=== PATIENT | female | born 1950 ===

== ENCOUNTER → 2019-05-06 10:53 | Outpatient (BNVA) | payer MEDICARE, MEDICAID, SELFPAY | PROVIDERS: Family Provider Family Medicine; PCP Family Medicine; Visit Provider Anesthesiology | DX: M54.9 Dorsalgia, unspecified (principal); M75.50 Bursitis of unspecified shoulder; M79.651 Pain in right thigh; M79.652 Pain in left thigh; M17.0 Bilateral primary osteoarthritis of knee; G62.9 Polyneuropathy, unspecified; Z79.891 Long term (current) use of opiate analgesic | CPT/HCPCS: 99214 ==

== ENCOUNTER → 2019-07-02 08:41 | Outpatient (BNVA) | payer MEDICARE, MEDICAID, SELFPAY | PROVIDERS: Family Provider Family Medicine; PCP Family Medicine; Visit Provider Nurse Practitioner | DX: Z76.89 Persons encountering health services in other specified circumstances (principal) | CPT/HCPCS: 99212 ==

== ENCOUNTER → 2019-09-24 14:34 | Outpatient (BNVA) | payer MEDICARE, MEDICAID, SELFPAY | PROVIDERS: Family Provider Family Medicine; PCP Family Medicine; Visit Provider Anesthesiology | DX: M54.41 Lumbago with sciatica, right side (principal); M54.42 Lumbago with sciatica, left side; M17.0 Bilateral primary osteoarthritis of knee; G62.9 Polyneuropathy, unspecified; Z79.891 Long term (current) use of opiate analgesic | CPT/HCPCS: 99214 ==

== ENCOUNTER 2019-10-07 08:05 | Outpatient (CLI) | payer MEDICARE, MEDICAID, SELFPAY | END 2019-10-07 08:06 | disposition home or self-care (01) | LOC: WOUND 08:07 | PROVIDERS: Family Provider Family Medicine; PCP Family Medicine; Visit Provider Thoracic Surgery (Cardiothoracic Vascular Surgery) | DX: I96 Gangrene, not elsewhere classified (principal); L97.512 Non-pressure chronic ulcer of other part of right foot with fat layer exposed; L97.812 Non-pressure chronic ulcer of other part of right lower leg with fat layer exposed; L97.822 Non-pressure chronic ulcer of other part of left lower leg with fat layer exposed | CPT/HCPCS: 11042; 11045; 99214 ==

== ENCOUNTER 2019-10-16 13:51 | Outpatient (CLI) | payer MEDICARE, MEDICAID, SELFPAY | END 2019-10-16 13:52 | disposition home or self-care (01) | LOC: WOUND 13:52 | PROVIDERS: Family Provider Family Medicine; PCP Family Medicine; Visit Provider Surgery | DX: I87.2 Venous insufficiency (chronic) (peripheral) (principal); L97.812 Non-pressure chronic ulcer of other part of right lower leg with fat layer exposed; L97.822 Non-pressure chronic ulcer of other part of left lower leg with fat layer exposed; L97.512 Non-pressure chronic ulcer of other part of right foot with fat layer exposed | CPT/HCPCS: 11042; 11045 ==

== ENCOUNTER 2019-10-22 10:24 | Outpatient (CLI) | payer MEDICARE, MEDICAID, SELFPAY | END 2019-10-22 10:25 | disposition home or self-care (01) | PROVIDERS: Family Provider Family Medicine; PCP Family Medicine; Visit Provider Emergency Medicine | DX: I87.2 Venous insufficiency (chronic) (peripheral) (principal); L97.812 Non-pressure chronic ulcer of other part of right lower leg with fat layer exposed; L97.512 Non-pressure chronic ulcer of other part of right foot with fat layer exposed; L97.822 Non-pressure chronic ulcer of other part of left lower leg with fat layer exposed | CPT/HCPCS: 11042; 11045 ==

== ENCOUNTER 2019-10-29 10:44 | Outpatient (CLI) | payer MEDICARE, MEDICAID, SELFPAY | END 2019-10-29 10:45 | disposition home or self-care (01) | LOC: WOUND 10:45 | PROVIDERS: Family Provider Family Medicine; PCP Family Medicine; Visit Provider Emergency Medicine | DX: I87.2 Venous insufficiency (chronic) (peripheral) (principal); L97.812 Non-pressure chronic ulcer of other part of right lower leg with fat layer exposed; L97.822 Non-pressure chronic ulcer of other part of left lower leg with fat layer exposed; L97.512 Non-pressure chronic ulcer of other part of right foot with fat layer exposed | CPT/HCPCS: 11042; 11045 ==

== ENCOUNTER 2019-11-04 15:33 | Outpatient (CLI) | payer MEDICARE, MEDICAID, SELFPAY | END 2019-11-04 15:34 | disposition home or self-care (01) | LOC: WOUND 15:35 | PROVIDERS: Family Provider Family Medicine; PCP Family Medicine; Visit Provider Thoracic Surgery (Cardiothoracic Vascular Surgery) | DX: I87.2 Venous insufficiency (chronic) (peripheral) (principal); L97.812 Non-pressure chronic ulcer of other part of right lower leg with fat layer exposed; L97.822 Non-pressure chronic ulcer of other part of left lower leg with fat layer exposed; L97.512 Non-pressure chronic ulcer of other part of right foot with fat layer exposed | CPT/HCPCS: 11042; 11045 ==

== ENCOUNTER 2019-11-06 16:04 | Outpatient (CLI) | payer MEDICARE, MEDICAID, SELFPAY ==
[2019-11-06 16:56] LABS: Basophils # 0.1 10^3/uL (0.0-0.1); Basophils % 0.6 %; Eosinophils # 0.3 10^3/uL (0.0-0.8); Eosinophils % 3.7 %; Hematocrit 37.9 % (37.0-47.0); Lymphocytes # 1.5 10^3/uL (0.8-4.8); Lymphocytes % 17.7 %; Mean Corpuscular Hemoglobin 24.2 pg (28.0-34.0); Mean Corpuscular Volume 83.3 fL (81-99); Mean Platelet Volume 9.5 fL (7.4-10.4); Monocytes # 0.6 10^3/uL (0.2-0.9); Monocytes % 6.6 %; Neutrophils % 70.7 %; Nucleated Red Blood Cells % 0 %; Platelet Count 503 10^3/cmm (130-400); Red Blood Count 4.55 10^6/uL (4.1-5.3); White Blood Count 8.5 10^3/uL (4.0-10.0)
[2019-11-06 18:32] LABS: Erythrocyte Sedimentation Rate 62 mm/hr (0-15)
[2019-11-06 18:44] LABS: Alanine Aminotransferase 60 U/L (0-33); Alkaline Phosphatase 318 IU/L (35-105); Anion Gap 22.7 (5-19); Aspartate Amino Transferase 74 U/L (0-32); Blood Urea Nitrogen 38 mg/dL (8-23); C Reactive Protein 55.1 mg/L (0.0-4.9); Calcium 9.3 mg/dL (8.5-10.5); Carbon Dioxide 18 mmol/L (22-29); Chloride 94 mmol/L (98-107); Globulin 4.2 g/dL (1.3-4.6); Glomerular Filtration Rate 40.6 mL/min (90-130); Glucose 94 mg/dL (65-115); Osmolality Calculated 267 mOsm/kg (285-295); Potassium 4.7 mmol/L (3.5-5.1); Sodium 130 mmol/L (136-145); Total Bilirubin 0.2 mg/dL (0.15-1.2); Total Protein 8.2 g/dL (6.6-8.7)
== END 2019-11-06 16:05 | disposition home or self-care (01) ==
LOC: LAB 16:08
PROVIDERS: Family Provider Family Medicine; PCP Family Medicine; Visit Provider Thoracic Surgery (Cardiothoracic Vascular Surgery)
DX: I87.2 Venous insufficiency (chronic) (peripheral) (principal)
CPT/HCPCS: 80053; 85025; 85651; 86140

== ENCOUNTER 2019-11-11 09:48 | Outpatient (CLI) | payer MEDICARE, MEDICAID, SELFPAY | END 2019-11-11 09:49 | disposition home or self-care (01) | LOC: WOUND 09:50 | PROVIDERS: Family Provider Family Medicine; PCP Family Medicine; Visit Provider Thoracic Surgery (Cardiothoracic Vascular Surgery) | DX: L97.512 Non-pressure chronic ulcer of other part of right foot with fat layer exposed (principal); L97.812 Non-pressure chronic ulcer of other part of right lower leg with fat layer exposed; L97.822 Non-pressure chronic ulcer of other part of left lower leg with fat layer exposed | CPT/HCPCS: 11042; 11045 ==

== ENCOUNTER 2019-11-17 16:52 | Outpatient (CLI) | payer MEDICARE, MEDICAID, SELFPAY ==
[2019-11-17 18:57] LABS: Add Urine Microscopic? YES; Bilirubin Urine Neg (NEGATIVE); Blood Urine Neg (Negative); Glucose Urine UA Norm (Normal); Ketones Urine Negative (Negative); Leukocyte Esterase Urine 2+ (Negative); Nitrate Urine Negative (Negative); Protein Urine Neg (Negative); Urine Appearance Cloudy (CLEAR); Urine Color Yellow (Yellow); Urobilinogen Urine 1 mg/dL (Negative); pH Urine 5 (5-7)
[2019-11-17 18:58] LABS: Add Urine Culture? Yes; Bacteria Urine 4+; Other Crystals Urine TALC /hpf; Squamous Epithelial Cell Urine 0-4 (0-5); WBC Urine 55-80 /hpf (0-5)
== END 2019-11-17 16:53 | disposition home or self-care (01) ==
LOC: LAB 16:55
PROVIDERS: PCP Family Medicine; Visit Provider Family Medicine
DX: N39.0 Urinary tract infection, site not specified (principal)
CPT/HCPCS: 81001; 87086; 87186

== ENCOUNTER 2019-11-18 10:11 | Outpatient (CLI) | payer MEDICARE, MEDICAID, SELFPAY | END 2019-11-18 10:12 | disposition home or self-care (01) | LOC: WOUND 10:11 | PROVIDERS: PCP Family Medicine; Visit Provider Emergency Medicine | DX: I87.2 Venous insufficiency (chronic) (peripheral) (principal); L97.812 Non-pressure chronic ulcer of other part of right lower leg with fat layer exposed; L97.512 Non-pressure chronic ulcer of other part of right foot with fat layer exposed; L97.822 Non-pressure chronic ulcer of other part of left lower leg with fat layer exposed | CPT/HCPCS: 11042; 11045 ==

== ENCOUNTER 2019-11-25 10:01 | Outpatient (RCR) | payer MEDICARE, MEDICAID, SELFPAY | END 2019-12-08 23:59 | disposition home or self-care (01) | LOC: WOUND 10:01 | PROVIDERS: PCP Family Medicine; Visit Provider Nurse Practitioner Family | DX: I87.2 Venous insufficiency (chronic) (peripheral) (principal); L97.822 Non-pressure chronic ulcer of other part of left lower leg with fat layer exposed; L97.812 Non-pressure chronic ulcer of other part of right lower leg with fat layer exposed; L97.512 Non-pressure chronic ulcer of other part of right foot with fat layer exposed | CPT/HCPCS: 99214 ==

== ENCOUNTER → 2019-12-03 09:18 | Outpatient (BNVA) | payer MEDICARE, MEDICAID, SELFPAY | PROVIDERS: Family Provider Family Medicine; PCP Family Medicine; Visit Provider Anesthesiology | DX: M79.604 Pain in right leg (principal); M79.605 Pain in left leg; M17.0 Bilateral primary osteoarthritis of knee; G62.9 Polyneuropathy, unspecified; M54.5 Low back pain; Z79.891 Long term (current) use of opiate analgesic | CPT/HCPCS: 99214 ==

== ENCOUNTER 2019-12-09 09:31 | Outpatient (CLI) | payer MEDICARE, MEDICAID, SELFPAY | END 2019-12-09 09:32 | disposition home or self-care (01) | LOC: WOUND 09:32 | PROVIDERS: Family Provider Family Medicine; PCP Family Medicine; Visit Provider Pharmacist | DX: L97.512 Non-pressure chronic ulcer of other part of right foot with fat layer exposed (principal); L97.812 Non-pressure chronic ulcer of other part of right lower leg with fat layer exposed | CPT/HCPCS: 11042; 11045 ==

== ENCOUNTER 2019-12-17 10:15 | Outpatient (CLI) | payer MEDICARE, MEDICAID, SELFPAY ==
--- NOTE | 2019-12-17 10:29 | XRR_ITS ---
PROCEDURE INFORMATION: Exam: XR Right Shoulder Exam date and time: 12/17/2019 10:59 AM Age: 69 years old Clinical indication: Pain; Shoulder; Right; Prior surgery; Surgery date: 6+ months; Patient HX: Fall 5 yrs ago, orif, infection in bone, hardware removal; Additional info: R shoulder pain/weakness TECHNIQUE: Imaging protocol: XR Right shoulder. Views: 2 or more views. COMPARISON: No relevant prior studies available. FINDINGS: Bones/joints: There is a chronic, nonunited, angulated fracture of the proximal humeral diaphysis. The humeral head appears to be eroded. Soft tissues: No acute soft tissue abnormality. XR/XR shoulder RT min 2V* [id number] IMPRESSION: Chronic nonunited humeral diaphyseal fracture.
== END 2019-12-17 10:16 | disposition home or self-care (01) ==
LOC: RAD 10:19
PROVIDERS: PCP Family Medicine; Visit Provider Family Medicine
DX: R53.1 Weakness (principal); S42.391A Other fracture of shaft of right humerus, initial encounter for closed fracture; X58.XXXA Exposure to other specified factors, initial encounter
CPT/HCPCS: 73030

== ENCOUNTER 2019-12-19 20:43 | Inpatient (IN) | payer MEDICARE, MEDICAID, SELFPAY ==
[2019-12-19 20:55] VITALS: RESP 16
--- NOTE | 2019-12-19 21:09 | CTR_ITS ---
PROCEDURE INFORMATION: Exam: CT Head Without Contrast Exam date and time: 12/19/2019 9:32 PM Age: 69 years old Clinical indication: Weakness, extremity; Patient HX: AMS. Low BP. Weakness TECHNIQUE: Imaging protocol: Computed tomography of the head without contrast. Radiation optimization: All CT scans at this facility use at least one of these dose optimization techniques: automated exposure control; mA and/or kV adjustment per patient size (includes targeted exams where dose is matched to clinical indication); or iterative reconstruction. COMPARISON: No relevant prior studies available. RADIATION DOSE METRICS: Total DLP (mGy-cm): 790.26 FINDINGS: Brain: Normal. No hemorrhage. Unremarkable white matter. No mass effect. Ventricles: Normal. No ventriculomegaly. Bones/joints: Unremarkable. No acute fracture. Sinuses: Visualized sinuses are unremarkable. No fluid levels. Mastoid air cells: Visualized mastoid air cells are well aerated. Soft tissues: Unremarkable. CT/CT head wo con* [id number] IMPRESSION: No acute intracranial abnormality. Radiation Dose CTDIVOL = (mGy): DLP = 790.26 (mGy-cm)
--- NOTE | 2019-12-19 21:09 | XRR_ITS ---
PROCEDURE INFORMATION: Exam: XR Chest, 1 View Exam date and time: 12/19/2019 9:32 PM Age: 69 years old Clinical indication: Dyspnea; Additional info: AMS TECHNIQUE: Imaging protocol: XR of the chest Views: 1 view. COMPARISON: No relevant prior studies available. FINDINGS: Lungs: Left lower lobe atelectasis versus minimal infiltrate. Pleural space: Unremarkable. No pleural effusion. No pneumothorax. Heart/Mediastinum: Unremarkable. No cardiomegaly. Bones/joints: Unremarkable. XR/XR chest 1V portable [id number] IMPRESSION: Left lower lobe atelectasis versus minimal infiltrate.
--- NOTE | 2019-12-19 21:11 | ECG_ITS ---
[facility] Test Date: 2019-12-19 Pat Name: Jessica Herrera Department: Room: Gender: Female Sales Person: : 1950 Requested By: Jennifer Escobar Order Number: [id number] Celina MD: Miguel Hall M.D. Measurements Intervals [place] Rate: 78 P: 45 FL: 199 QRS: 0 QRSD: 98 T: 42 QT: 375 QTc: 428 Interpretive Statements SINUS RHYTHM POSSIBLE ANTERIOR MYOCARDIAL INFARCTION , OF INDETERMINATE AGE [30 ms Q WAVE IN V3/V4, OR R < 0.2 mV IN V4] No previous ECG available for comparison Electronically Signed On 12-20-2019 16:20:54 CDT by Miguel Hall M.D. [id number]
--- NOTE | 2019-12-19 21:45 | ED_ITS ---
HPI - Weakness General: Chief complaint: Weakness Stated complaint: weakness Time Seen by Provider: 12/19/19 21:02 Source: patient Mode of arrival: ambulatory Limitations: no limitations History of Present Illness: HPI Narrative: Jessica is a nice 69-year-old female who comes in with multiple complaints. Her first complaint is that of weakness and fatigue for the past several weeks. She states that she is gotten so weak that she could not carry out her activities of daily living or care for herself. She also states she is become very sleepy over the past day. She states that she just cannot stay awake. Patient also has symptoms of urinary frequency, urgency and burning when she urinates. She denies any fevers or chills. She complains of a headache. She has neck pain but she states the neck pain is chronic from osteoarthritis and she sees a pain clinic here in town for that. Patient takes methadone and oxycodone for this. Patient denies taking too much of these medications. Patient also complains of chronic left arm numbness which she says is been present for a week. She woke up with the symptoms and they have never resolved. She denies any numbness or weakness of any other part of her body. Patient states that all of these symptoms were progressive and then today she cannot stay awake and that is the primary reason she came into the hospital today. Associated symptoms: Reports dysuria and headache(s); Denies chest pain, chills, confusion, melena, diaphoresis, easy bruising, fever(s), nausea, syncope or vomiting Review of Systems Const: Reports: body aches, fatigue and malaise; Denies: fever(s), chills or diaphoresis Eyes: Denies: change in vision, blurry vision, photophobia, eye discomfort, eye discharge, eye redness or yellow eyes ENMT: Denies: throat pain, odynophagia, hoarseness, swelling of lips/tongue, ear or mastoid pain, ear discharge, change in hearing or nasal discharge Card: Denies: chest pain, palpitations, irregular heart rhythm, edema, lightheadedness, syncope, pre-syncope, dyspnea on exertion or orthopnea Resp: Denies: dyspnea, productive cough, non-productive cough, wheezing, hemoptysis or chest congestion GI: Denies: abdominal pain, nausea, vomiting, hematemesis, coffee ground emesis, heartburn, diarrhea, constipation, GI cramping, hematochezia or melena : Reports: dysuria, urinary frequency and urinary urgency; Denies: flank pain or hematuria Musc: Reports: neck pain and back pain; Denies: extremity pain, extremity swelling, joint pain, joint swelling, joint re dness, joint warmth or joint stiffness Skin/Breast: Denies: rash, pruritus, erythema, skin pain or skin tenderness Neuro: Reports: headache(s); Denies: numbness in extremities, weakness in extremities, sensory changes, lack of coordination, difficulty walking, dizziness, vertigo, confusion, Slurred speech present or seizure-like activity Jose Elias/Lymph: Denies: easy bruising, easy bleeding, petechiae, purpura or enlarged lymph nodes All/Imm: Denies: urticaria, throat swelling, tongue swelling, facial swelling or acute wheezing PFSH ED PFSH: Medical History (Updated 12/20/19 @ 04:11 by Jennifer Wright) Bursitis of shoulder Chronic kidney disease, stage 3 Encounter for long-term opiate analgesic use Long-term use of high-risk medication Low back pain of over 3 months duration Opioid contract exists Osteoarthritis of both knees Surgical History Hx of cholecystectomy Hx of shoulder surgery X 4 S/P total hysterectomy Family History Mother Hypertension Father Hypertension Cancer Brother Hypertension Cancer Social History (Updated 12/20/19 @ 03:21 by Kristen Cleaning MD) Smoking and tobacco status: never smoked Second hand smoke exposure: No Alcohol intake: never Lives independently: Yes Marital status: / History of recent travel: No Physical Exam Const: COMMON NORMALS: no acute distress, patient oriented x3, no limitations and alert GENERAL APPEARANCE: cooperative HENMT: COMMON NORMALS: normocephalic, atraumatic, external ears normal, EAC's normal and Normal external nose present HEAD & SCALP: normal to inspection, normocephalic and atraumatic FACE & SINUS: normal facial exam and face symmetric NOSE: Normal external nose present and Normal nares present EXTERNAL EAR: Yes external ears normal EXTERNAL AUDITORY CANAL: EAC's normal MOUTH: Normal oral and palatal mucosa present, lip normal and tongue normal Eye: COMMON NORMALS: Equal, round and reactive pupils present and conjunctivae normal GENERAL EYE: appearance normal, both eyes and all related structures ALIGNMENT: Yes alignment normal PERIORBITAL: periorbital findings normal EYELID: eyelids normal CONJUNCTIVA: Yes conjunctivae normal SCLERA: sclerae normal PUPIL: Yes Equal, round and reactive pupils present Neck/C-Spine: COMMON NORMALS: full ROM, no lymphadenopathy, supple, no meningeal signs and no JVD GENERAL: Yes normal visual inspection and Yes trachea midline Chest: COMMONS NORMALS: normal inspection of the chest and normal palpation of entire chest wall Resp: COMMON NORMALS: normal respiratory effort, No retractions, No use of accessory muscles and clear to auscultation bilaterally EFFORT & INSPECTION: Yes able to speak in complete sentences and Yes symmetric chest movement AUSCULTATION: clear to auscultation bilaterally, no crackles, no rales, no rhonchi and no wheezes Cardio: COMMON NORMALS: no JVD, regular rate, regular rhythm, S1 normal heart sound present and S2 normal heart sound present RATE: regular rate RHYTHM: regular rhythm HEART SOUNDS: S1 normal heart sound present, S2 normal heart sound present, no click, no gallops, no murmurs and no rubs GI: COMMON NORMALS: Soft to palpation and No hepatosplenomegaly present PALPATION: Yes Soft to palpation, No Tenderness to palpation present (GI), No Guarding due to palpation present (GI), No Rigid due to palpation, Yes No hepatosplenomegaly present, No Hernia present, No Palpable mass present and No Pulsatile mass present : COMMON NORMALS: Yes no CVA tenderness BLADDER/KIDNEY EXAM: Yes no CVA tenderness EXTERNAL FEMALE EXAM: No Hernia present Back/Pelvis: COMMON NORMALS: no CVA tenderness, thoracic and lumbar spine normal to inspection, no thoracic nor lumbar tenderness and thoraco-lumbar ROM normal Extremity: COMMON NORMALS: normal to inspection, full ROM, capillary refill normal, no joint enlargement, no clubbing, cyanosis or edema and no calf tenderness Neuro: COMMON NORMALS: patient oriented x3, CN's II-XII intact bilaterally, moves all extremities, no focal motor deficits and no sensory deficits noted SENSORIUM/ORIENTATION: Yes alert MENINGEAL SIGNS: Yes no meningeal signs SPEECH: speech normal Psych: COMMON NORMALS: mental status grossly normal, Normal thought process present, cooperative, normal affect, speech normal and activity/motor behavior normal SPEECH: Yes normal speech THOUGHT PROCESS: Normal thought process present Skin: COMMON NORMALS: no rashes or lesions noted, turgor normal, no jaundice, no petechiae and no mottling GENERAL SKIN EXAM: no rashes or lesions noted and turgor normal Course Vital Signs: Vital signs: Vital Signs Pulse Rate 91 12/20/19 02:20 Respiratory Rate 16 12/20/19 02:28 Blood Pressure 108/87 12/20/19 02:28 Pulse Oximetry 95 12/20/19 02:28 MDM - Weakness MDM Narrative: Medical decision making narrative: Jessica is a nice 69-year-old female who comes in with altered mental status and lethargy. Work-up reveals hyponatremia, acute renal failure and acidosis. Her mild hyperkalemia was treated with the typical hyperkalemic cocktail. She be given IV fluids and is beginning to make urine. Is been treated empirically for sepsis with Primaxin. The case was endorsed to Dr. Cleaning who agrees admit to the ICU and monitor urine output and hyponatremia. We will follow-up on her laboratory values in the morning on routine lab draw. Tele-nephrology service has been consulted but at this time they have not returned our call. CT the abdomen pelvis, renal protocol been ordered by Dr. Cleaning, will follow up on this result as well as the patient's repeat chemistry and she will monitor her urine output. Lab Data: Labs: Lab Results 12/19/19 12/19/19 12/19/19 Range/Units 21:50 22:45 23:07 WBC 17.2 H (4.0-10.0) 10^3/ uL RBC 4.63 (4.1-5.3) 10^6/u L Hgb 12.0 (11.5-15.3) g/dL Hct 38.3 (37.0-47.0) % MCV 82.7 (81-99) fL MCH 25.9 L (28.0-34.0) pg MCHC 31.3 (30.0-36.0) g/dL RDW 20.2 H (12.1-15.1) % Plt Count 535 H (130-400) 10^3/c mm MPV 9.7 (7.4-10.4) fL Neut % (Auto) 86.3 % Lymph % (Auto) 5.6 % Jenkins % (Auto) 5.6 % Eos % (Auto) 0.9 % Baso % (Auto) 0.2 % Neut # (Auto) 14.86 H (1.8-7.7) 10^3/u L Lymph # (Auto) 1.0 (0.8-4.8) 10^3/u L Jenkins # (Auto) 1.0 H (0.2-0.9) 10^3/u L Eos # (Auto) 0.2 (0.0-0.8) 10^3/u L Baso # (Auto) 0.0 (0.0-0.1) 10^3/u L Nucleated RBC % (a uto) 0 % Nucleated RBCs # 0.0 /100WBC PT (12.1-14.9) SECO NDS INR (0.8-1.2) Specimen Type Arterial Sample Site Brachial, left ABG pH 7.25 L (7.35-7.45) ABG pCO2 35.5 (35-45) mmHg ABG pO2 78.1 L (80.0-100.0) mmH g ABG HCO3 15.5 L (22-26) mmol/L ABG O2 Saturation 93.2 ABG Base Excess -10.9 L (-2.0-2.0) mmol/ L Francis Test Pos A-a O2 Gradient 3.5 L (5-10) mmHg Hematocrit 37.3 (37-47) % Hgb O2 Saturation 92.6 L (95-100) % Carboxyhemoglobin < 0.0 L (0.4-20.1) %THgb Methemoglobin 0.8 (0.4-1.5) % Total Hemoglobin 12.2 (12-16) g/dL Sodium 118.0 L (131-143) mmol/L Potassium 5.4 H (3.5-5.0) mmol/L Glucose 189.0 H (70-115) mg/dL Ionized Calcium 1.2 (1.1-1.4) mmol/L O2 Delivery Device None FiO2 21.0 % Pants Presser Automatic ID [id number] Chloride (98-107) mmol/L Carbon Dioxide (22-29) mmol/L Anion Gap (5-19) BUN (8-23) mg/dL Creatinine (0.5-0.9) mg/dL GFR Calculation (90-130) mL/min Calculated Osmolal ity (285-295) mOsm/k g Lactic Acid (0.5-2.2) mmol/L Calcium (8.5-10.5) mg/dL Magnesium (1.7-2.3) mg/dL Total Bilirubin (0.15-1.2) mg/dL AST (0-32) U/L ALT (0-33) U/L Alkaline Phosphata se (35-105) IU/L Ammonia (11-51) umol/L Creatine Kinase (26-192) U/L Troponin T Baselin e (0-10) ng/L Troponin T 120 Min [place] (0-10) ng/L Delta Troponin T (0-10) ABS# Total Protein (6.6-8.7) g/dL Albumin (3.5-5.2) g/dL Globulin (1.3-4.6) g/dL Lipase (13-60) U/L Urine Color (Yellow) Urine Appearance (CLEAR) Urine pH (5-7) Ur Specific Gravit y (1.005-1.030) Urine Protein (Negative) Urine Glucose (UA) (Normal) Urine Ketones (Negative) Urine Blood (Negative) Urine Nitrate (Negative) Urine Bilirubin (Negative) Urine Urobilinogen (Negative) mg/dL Ur Leukocyte Elissa ase (Negative) Urine RBC (0-2) /hpf Urine WBC (0-5) /hpf Ur Squamous Epith Cells (0-5) /hpf Amorphous Sediment Urine Bacteria (NONE) /hpf Ethyl Alcohol (0-10) mg/dL Serum Ketones (Negative) SARS-CoV-2 Ag (Rap id) Negative (Negative) 12/19/19 12/19/19 12/19/19 Range/Units 23:07 23:07 23:07 WBC (4.0-10.0) 10^3/ uL RBC (4.1-5.3) 10^6/u L Hgb (11.5-15.3) g/dL Hct (37.0-47.0) % MCV (81-99) fL MCH (28.0-34.0) pg MCHC (30.0-36.0) g/dL RDW (12.1-15.1) % Plt Count (130-400) 10^3/c mm MPV (7.4-10.4) fL Neut % (Auto) % Lymph % (Auto) % Jenkins % (Auto) % Eos % (Auto) % Baso % (Auto) % Neut # (Auto) (1.8-7.7) 10^3/u L Lymph # (Auto) (0.8-4.8) 10^3/u L Jenkins # (Auto) (0.2-0.9) 10^3/u L Eos # (Auto) (0.0-0.8) 10^3/u L Baso # (Auto) (0.0-0.1) 10^3/u L Nucleated RBC % (a uto) % Nucleated RBCs # /100WBC PT (12.1-14.9) SECO NDS INR (0.8-1.2) Specimen Type Sample Site ABG pH (7.35-7.45) ABG pCO2 (35-45) mmHg ABG pO2 (80.0-100.0) mmH g ABG HCO3 (22-26) mmol/L ABG O2 Saturation ABG Base Excess (-2.0-2.0) mmol/ L Francis Test A-a O2 Gradient (5-10) mmHg Hematocrit (37-47) % Hgb O2 Saturation (95-100) % Carboxyhemoglobin (0.4-20.1) %THgb Methemoglobin (0.4-1.5) % Total Hemoglobin (12-16) g/dL Sodium 116 L* (131-143) mmol/L Potassium 6.0 H (3.5-5.0) mmol/L Glucose 175 H (70-115) mg/dL Ionized Calcium (1.1-1.4) mmol/L O2 Delivery Device FiO2 % Pants Presser Automatic ID Chloride 85 L (98-107) mmol/L Carbon Dioxide 16 L (22-29) mmol/L Anion Gap 21.0 H (5-19) BUN 107 H* D (8-23) mg/dL Creatinine 2.5 H (0.5-0.9) mg/dL GFR Calculation 19.1 L (90-130) mL/min Calculated Osmolal ity 248 L (285-295) mOsm/k g Lactic Acid 1.7 (0.5-2.2) mmol/L Calcium 9.1 (8.5-10.5) mg/dL Magnesium 2.6 H (1.7-2.3) mg/dL Total Bilirubin 0.3 (0.15-1.2) mg/dL AST 85 H (0-32) U/L ALT 78 H (0-33) U/L Alkaline Phosphata se 374 H (35-105) IU/L Ammonia 21 (11-51) umol/L Creatine Kinase 854 H* (26-192) U/L Troponin T Baselin e (0-10) ng/L Troponin T 120 Min [place] (0-10) ng/L Delta Troponin T (0-10) ABS# Total Protein 7.3 (6.6-8.7) g/dL Albumin 4.1 (3.5-5.2) g/dL Globulin 3.2 (1.3-4.6) g/dL Lipase 182 H (13-60) U/L Urine Color (Yellow) Urine Appearance (CLEAR) Urine pH (5-7) Ur Specific Gravit y (1.005-1.030) Urine Protein (Negative) Urine Glucose (UA) (Normal) Urine Ketones (Negative) Urine Blood (Negative) Urine Nitrate (Negative) Urine Bilirubin (Negative) Urine Urobilinogen (Negative) mg/dL Ur Leukocyte Elissa ase (Negative) Urine RBC (0-2) /hpf Urine WBC (0-5) /hpf Ur Squamous Epith Cells (0-5) /hpf Amorphous Sediment Urine Bacteria (NONE) /hpf Ethyl Alcohol < 10 (0-10) mg/dL Serum Ketones Negative (Negative) SARS-CoV-2 Ag (Rap id) (Negative) 12/19/19 12/19/19 12/20/19 Range/Units 23:07 23:07 01:55 WBC (4.0-10.0) 10^3/ uL RBC (4.1-5.3) 10^6/u L Hgb (11.5-15.3) g/dL Hct (37.0-47.0) % MCV (81-99) fL MCH (28.0-34.0) pg MCHC (30.0-36.0) g/dL RDW (12.1-15.1) % Plt Count (130-400) 10^3/c mm MPV (7.4-10.4) fL Neut % (Auto) % Lymph % (Auto) % Jenkins % (Auto) % Eos % (Auto) % Baso % (Auto) % Neut # (Auto) (1.8-7.7) 10^3/u L Lymph # (Auto) (0.8-4.8) 10^3/u L Jenkins # (Auto) (0.2-0.9) 10^3/u L Eos # (Auto) (0.0-0.8) 10^3/u L Baso # (Auto) (0.0-0.1) 10^3/u L Nucleated RBC % (a uto) % Nucleated RBCs # /100WBC PT 13.10 (12.1-14.9) SECO NDS INR 0.97 (0.8-1.2) Specimen Type Sample Site ABG pH (7.35-7.45) ABG pCO2 (35-45) mmHg ABG pO2 (80.0-100.0) mmH g ABG HCO3 (22-26) mmol/L ABG O2 Saturation ABG Base Excess (-2.0-2.0) mmol/ L Francis Test A-a O2 Gradient (5-10) mmHg Hematocrit (37-47) % Hgb O2 Saturation (95-100) % Carboxyhemoglobin (0.4-20.1) %THgb Methemoglobin (0.4-1.5) % Total Hemoglobin (12-16) g/dL Sodium (131-143) mmol/L Potassium (3.5-5.0) mmol/L Glucose (70-115) mg/dL Ionized Calcium (1.1-1.4) mmol/L O2 Delivery Device FiO2 % Pants Presser Automatic ID Chloride (98-107) mmol/L Carbon Dioxide (22-29) mmol/L Anion Gap (5-19) BUN (8-23) mg/dL Creatinine (0.5-0.9) mg/dL GFR Calculation (90-130) mL/min Calculated Osmolal ity (285-295) mOsm/k g Lactic Acid (0.5-2.2) mmol/L Calcium (8.5-10.5) mg/dL Magnesium (1.7-2.3) mg/dL Total Bilirubin (0.15-1.2) mg/dL AST (0-32) U/L ALT (0-33) U/L Alkaline Phosphata se (35-105) IU/L Ammonia (11-51) umol/L Creatine Kinase (26-192) U/L Troponin T Baselin e 65 H (0-10) ng/L Troponin T 120 Min [place] 64.59 H (0-10) ng/L Delta Troponin T -0.41 L (0-10) ABS# Total Protein (6.6-8.7) g/dL Albumin (3.5-5.2) g/dL Globulin (1.3-4.6) g/dL Lipase (13-60) U/L Urine Color (Yellow) Urine Appearance (CLEAR) Urine pH (5-7) Ur Specific Gravit y (1.005-1.030) Urine Protein (Negative) Urine Glucose (UA) (Normal) Urine Ketones (Negative) Urine Blood (Negative) Urine Nitrate (Negative) Urine Bilirubin (Negative) Urine Urobilinogen (Negative) mg/dL Ur Leukocyte Elissa ase (Negative) Urine RBC (0-2) /hpf Urine WBC (0-5) /hpf Ur Squamous Epith Cells (0-5) /hpf Amorphous Sediment Urine Bacteria (NONE) /hpf Ethyl Alcohol (0-10) mg/dL Serum Ketones (Negative) SARS-CoV-2 Ag (Rap id) (Negative) 12/20/19 Range/Units 03:20 WBC (4.0-10.0) 10^3/ uL RBC (4.1-5.3) 10^6/u L Hgb (11.5-15.3) g/dL Hct (37.0-47.0) % MCV (81-99) fL MCH (28.0-34.0) pg MCHC (30.0-36.0) g/dL RDW (12.1-15.1) % Plt Count (130-400) 10^3/c mm MPV (7.4-10.4) fL Neut % (Auto) % Lymph % (Auto) % Jenkins % (Auto) % Eos % (Auto) % Baso % (Auto) % Neut # (Auto) (1.8-7.7) 10^3/u L Lymph # (Auto) (0.8-4.8) 10^3/u L Jenkins # (Auto) (0.2-0.9) 10^3/u L Eos # (Auto) (0.0-0.8) 10^3/u L Baso # (Auto) (0.0-0.1) 10^3/u L Nucleated RBC % (a uto) % Nucleated RBCs # /100WBC PT (12.1-14.9) SECO NDS INR (0.8-1.2) Specimen Type Sample Site ABG pH (7.35-7.45) ABG pCO2 (35-45) mmHg ABG pO2 (80.0-100.0) mmH g ABG HCO3 (22-26) mmol/L ABG O2 Saturation ABG Base Excess (-2.0-2.0) mmol/ L Francis Test A-a O2 Gradient (5-10) mmHg Hematocrit (37-47) % Hgb O2 Saturation (95-100) % Carboxyhemoglobin (0.4-20.1) %THgb Methemoglobin (0.4-1.5) % Total Hemoglobin (12-16) g/dL Sodium (131-143) mmol/L Potassium (3.5-5.0) mmol/L Glucose (70-115) mg/dL Ionized Calcium (1.1-1.4) mmol/L O2 Delivery Device FiO2 % Pants Presser Automatic ID Chloride (98-107) mmol/L Carbon Dioxide (22-29) mmol/L Anion Gap (5-19) BUN (8-23) mg/dL Creatinine (0.5-0.9) mg/dL GFR Calculation (90-130) mL/min Calculated Osmolal ity (285-295) mOsm/k g Lactic Acid (0.5-2.2) mmol/L Calcium (8.5-10.5) mg/dL Magnesium (1.7-2.3) mg/dL Total Bilirubin (0.15-1.2) mg/dL AST (0-32) U/L ALT (0-33) U/L Alkaline Phosphata se (35-105) IU/L Ammonia (11-51) umol/L Creatine Kinase (26-192) U/L Troponin T Baselin e (0-10) ng/L Troponin T 120 Min [place] (0-10) ng/L Delta Troponin T (0-10) ABS# Total Protein (6.6-8.7) g/dL Albumin (3.5-5.2) g/dL Globulin (1.3-4.6) g/dL Lipase (13-60) U/L Urine Color Yellow (Yellow) Urine Appearance Clear (CLEAR) Urine pH 5 (5-7) Ur Specific Gravit y 1.020 (1.005-1.030) Urine Protein Neg (Negative) Urine Glucose (UA) Norm (Normal) Urine Ketones Negative (Negative) Urine Blood Neg (Negative) Urine Nitrate Negative (Negative) Urine Bilirubin Neg (Negative) Urine Urobilinogen Norm (Negative) mg/dL Ur Leukocyte Elissa ase Negative (Negative) Urine RBC 0-4 H (0-2) /hpf Urine WBC 5-10 H (0-5) /hpf Ur Squamous Epith Cells 0-4 H (0-5) /hpf Amorphous Sediment Not Reportable Urine Bacteria 1+ H (NONE) /hpf Ethyl Alcohol (0-10) mg/dL Serum Ketones (Negative) SARS-CoV-2 Ag (Rap id) (Negative) Imaging Data^: CXR: Attestation: I personally reviewed and interpreted this imaging study as follows: My impression: No acute cardiopulmonary findings, left lower lobe atelectasis. EKG Data^: EKG 1: Attestation: I personally reviewed and interpreted this EKG as follows: EKG interpretation date: 12/19/19 EKG interpretation time: 21:41 Interpretation: Normal sinus rhythm at 78 beats a minute, no blocks, normal intervals, nonspecific ST and T wave changes. No old for comparison. EKG 2: Attestation: I personally reviewed and interpreted this EKG as follows: EKG interpretation date: 12/20/19 EKG interpretation time: 00:14 Interpretation: Normal sinus rhythm at 84 beats a minute, normal axis, no blocks, normal intervals, nonspecific ST-T wave changes. Conferred with Dr. Reece. Discharge Plan Discharge Patient Disposition: Admitted As Inpatient Admit Provider: Kristen Cleaning Clinical Impression: Acute hyponatremia, Acute kidney injury, Acute hyperkalemia Condition: Stable Referrals: Felix Prabhakar MD [Primary Care Provider] - Coding Level of Care Code ED City Maintenance Manager for Chg Fwd Exam Comprehensive
[2019-12-19 22:01] LABS: ABG PCO2 35.5 mmHg (35-45); ABG PH Result 7.25 (7.35-7.45); Alveolar-Arterial Oxygen Gradi 3.5 mmHg (5-10); Arterial Blood Gas Hematocrit 37.3 % (37-47); Base Excess ABG -10.9 mmol/L (-2.0-2.0); Blood Gas Allen Test Pos; Blood Gas Sample Site Brachial, left; Blood Gas Sample Type Arterial; Carboxyhemoglobin < 0.0 %THgb (0.4-20.1); HCO3 ABG 15.5 mmol/L (22-26); HGB O2 Sat 92.6 % (95-100); Ionized Calcium Level - ABG 1.2 mmol/L (1.1-1.4); Methemoglobin 0.8 % (0.4-1.5); Oxygen Saturation ABG 93.2; PO2 ABG 78.1 mmHg (80.0-100.0); Potassium Level - ABG 5.4 mmol/L (3.5-5.0); Total Hemoglobin 12.2 g/dL (12-16)
--- NOTE | 2019-12-19 23:11 | ECG_ITS ---
[facility] Test Date: 2019-12-20 Pat Name: Jessica Herrera Department: Room: Gender: Female [employer]: : 1950 Requested By: Jennifer Escobar Order Number: [id number] Celina MD: Miguel Hall M.D. Measurements Intervals [place]bert Rate: 86 P: 61 OR: 192 QRS: 55 QRSD: 96 T: 59 QT: 368 QTc: 442 Interpretive Statements SINUS RHYTHM LOW QRS VOLTAGE IN EXTREMITY LEADS [QRS DEFLECTION < 0.5 mV IN LIMB LEADS] ANTEROSEPTAL MYOCARDIAL INFARCTION , OF INDETERMINATE AGE [40+ ms Q WAVE IN V1-V4] inferolateral early repolarization abnormality. Compared to ECG 12/19/2019 21:41:57 Low QRS voltage now present ST (T wave) deviation now present Myocardial infarct finding still present Electronically Signed On 12-20-2019 16:25:37 CDT by Miguel Hall M.D. [id number]
[2019-12-19 23:13] LABS: Basophils % 0.2 %; Eosinophils # 0.2 10^3/uL (0.0-0.8); Eosinophils % 0.9 %; Hematocrit 38.3 % (37.0-47.0); Lymphocytes % 5.6 %; Mean Corpuscular HGB Conc 31.3 g/dL (30.0-36.0); Mean Corpuscular Hemoglobin 25.9 pg (28.0-34.0); Mean Corpuscular Volume 82.7 fL (81-99); Mean Platelet Volume 9.7 fL (7.4-10.4); Monocytes % 5.6 %; Neutrophils # 14.86 10^3/uL (1.8-7.7); Neutrophils % 86.3 %; Nucleated Red Blood Cells % 0 %; Platelet Count 535 10^3/cmm (130-400); Red Blood Count 4.63 10^6/uL (4.1-5.3); Red Cell Distribution Width 20.2 % (12.1-15.1); White Blood Count 17.2 10^3/uL (4.0-10.0)
[2019-12-19 23:35] LABS: INR 0.97 (0.8-1.2)
[2019-12-19 23:37] LABS: Lactic Sepsis W/Reflex 1.7 mmol/L (0.5-2.2)
[2019-12-19 23:52] LABS: Troponin(5th) Baseline 65 ng/L (0-10)
[2019-12-19 23:54] LABS: Ammonia 21 umol/L (11-51)
[2019-12-19 23:55] LABS: Ketone (Acetest) Serum Negative (Negative)
[2019-12-19 23:55] LABS: SARS Covid-2 Antigen Negative (Negative)
[2019-12-20] VITALS (48 sets, daily range): BP systolic 89–138; BP diastolic 38–87; PULSE 67–199; RESP 12–26; TEMP 36.5–36.8; O2SAT 92–100; BMI 28.0
--- NOTE | 2019-12-20 00:15 | PC.NURSE ---
performed repeat EKG to get clearer picture per doctor
[2019-12-20 00:20] LABS: Alanine Aminotransferase 78 U/L (0-33); Albumin Level 4.1 g/dL (3.5-5.2); Alkaline Phosphatase 374 IU/L (35-105); Calcium 9.1 mg/dL (8.5-10.5); Carbon Dioxide 16 mmol/L (22-29); Globulin 3.2 g/dL (1.3-4.6); Glomerular Filtration Rate 19.1 mL/min (90-130); Glucose 175 mg/dL (65-115); Lipase 182 U/L (13-60); Magnesium 2.6 mg/dL (1.7-2.3); Total Bilirubin 0.3 mg/dL (0.15-1.2); Total Protein 7.3 g/dL (6.6-8.7)
[2019-12-20 00:34] LABS: Alcohol Level < 10 mg/dL (0-10); Osmolality Calculated 248 mOsm/kg (285-295)
[2019-12-20 00:35] LABS: Aspartate Amino Transferase 85 U/L (0-32); Chloride 85 mmol/L (98-107)
[2019-12-20 00:36] LABS: Blood Urea Nitrogen 107 mg/dL (8-23); Creatine Phosphokinase 854 U/L (26-192); Sodium 116 mmol/L (136-145)
--- NOTE | 2019-12-20 01:54 | P.HP_ITS ---
Providers/Chief Complaint Admitting Physician: Kristen Cleaning MD Primary Care Provider: Lloyd Prabhakar Chief Complaint: weakness History of Present Illness Jessica Herrera is a 69 year old female with PMHx noted below presents for evaluation of generalized weakness and noted abnormal labs at PCP office which she states included low sodium and high potassium though is unsure of exact num bers. She is wheelchair dependent at baseline, has chronic lower extremity wounds for which she has home health care for daily wound dressing changes and she follows up at the wound care clinic. 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 She is quite somnolent during my evaluation in the ER so history taking is quite limited. Additional information obtained from review of medical record. Work- up so far indicates leukocytosis with a white count of 17.2, normal hemoglobin at 12.0, platelet count of 535, sodium of 116 which when corrected for hyperglycemia is 117, sodium of 85, bicarb of 16, BUN of 107, creatinine of 2.5, blood glucose of 175, magnesium of 2.6, noted transaminitis, lactate of 1.7, normal coags, rapid COVID testing negative, ABG indicative of mild hypoxia, CPK of 854, lipase of 182, baseline troponin of 65. Urinalysis is pending. Gorman catheter has just been placed with 300 mL urine output noted. She has received 1 L normal saline bolus and is currently receiving maintenance fluids. Vital signs are stable. CT scan of the abdomen and pelvis has just been completed and shows multilevel DJD, but no obstruction. I have requested nephrology consultation for further recommendations. Due to somnolence, degree of electrolyte abnormalities and renal dysfunction, patient will be admitted to ICU. Review of Systems Narrative: -difficult to obtain due to somnolence Const: Reports: change in appetite (decreased appetite) and fatigue ENMT: Reports: dry mouth Resp: Denies: dyspnea, productive cough or non-productive cough GI: Reports: diarrhea; Denies: abdominal pain, nausea, vomiting, hematemesis or hematochezia : Reports: dysuria, urinary hesitancy and oliguria Neuro: Reports: weakness in extremities Medications/Allergies Home Medications Medication Instructions Recorded Confirmed Last Taken Type allopurinol 300 mg tablet 300 mg PO QDAY 05/01/19 12/03/19 Unknown History calcium carbonate 600 mg calcium 600 mg PO BID 05/01/19 12/03/19 Unknown History (1,500 mg) tablet cetirizine 10 mg tablet 10 mg PO QDAY PRN tab 05/01/19 12/03/19 Unknown History diclofenac sodium 1 % topical gel 4 gm TOPICAL QID 05/01/19 12/03/19 Unknown History ergocalciferol (vitamin D2) 50 mcg 2,000 unit PO QDAY 05/01/19 12/03/19 Unknown History (2,000 unit) tablet midodrine 2.5 mg tablet 5 mg PO TID 05/01/19 12/03/19 Unknown History omeprazole 20 mg capsule,delayed 20 mg PO BID 05/01/19 12/03/19 Unknown History release zinc sulfate 220 mg PO QDAY 05/01/19 12/03/19 Unknown History levothyroxine 125 mcg tablet 125 mcg PO QDAY tab 05/06/19 12/03/19 Unknown History methadone 10 mg tablet 10 mg PO .Q 8H 30 Days #90 tab 05/06/19 12/03/19 Unknown Rx oxycodone 10 mg tablet 10 mg PO BID PRN 30 Days #60 tab 05/06/19 12/03/19 Unknown Rx ondansetron HCl 4 mg tablet 4 mg PO Q6H PRN #50 tab 06/05/19 12/03/19 Unknown Rx gabapentin 800 mg tablet 800 mg PO TID 30 Days #90 tab 09/24/19 12/03/19 Unknown Rx methadone 10 mg tablet 10 mg PO Q8H 30 Days #90 tab 12/03/19 12/03/19 Unknown Rx methadone 10 mg tablet 10 mg PO Q8H 30 Days #90 tab 12/03/19 12/03/19 Unknown Rx oxycodone 10 mg tablet 10 mg PO BID PRN 30 Days #60 tab 12/03/19 12/03/19 Unkno wn Rx oxycodone 10 mg tablet 10 mg PO BID PRN 30 Days #60 tab 12/03/19 12/03/19 Unknown Rx Allergies Allergy/AdvReac Type Severity Reaction Status Date / Time Penicillins Allergy Unknown ADR-Gastrointestinal Verified 12/03/19 09:32 Upset codeine AdvReac NAUSEA Verified 12/03/19 09:32 minocycline AdvReac GI UPSET Verified 12/03/19 09:32 zolpidem [From Ambien] AdvReac NAUSEA Verified 12/03/19 09:32 Ambien Allergy Unknown ADR-Confusi Uncoded 09/24/19 14:52 on PFSH Acute PFSH: Medical History (Updated 12/20/19 @ 03:29 by Kristen Cleaning MD) Bursitis of shoulder Chronic kidney disease, stage 3 Encounter for long-term opiate analgesic use Long-term use of high-risk medication Low back pain of over 3 months duration Opioid contract exists Osteoarthritis of both knees Surgical History Hx of cholecystectomy Hx of shoulder surgery X 4 S/P total hysterectomy Family History Mother Hypertension Father Hypertension Cancer Brother Hypertension Cancer Social History (Updated 12/20/19 @ 03:21 by Kristen Cleaning MD) Smoking and tobacco status: never smoked Second hand smoke exposure: No Alcohol intake: never Lives independently: Yes Marital status: / History of recent travel: No Vitals/I&O/Wt Last Vital Signs Resp 16 12/19/19 20:55 Weight last 48 hrs Weight 86.183 kg Physical Exam Const: COMMON NORMALS: no acute distress GENERAL APPEARANCE: cooperative, comfortable and frail appearing NUTRITIONAL APPEARANCE: overweight OTHER: -Somnolent, awakens for brief periods of time though does answer questions appropriately when awake HENMT: COMMON NORMALS: normocephalic, atraumatic and hearing grossly normal bilaterally HEAD & SCALP: normocephalic and atraumatic Eye: COMMON NORMALS: Equal, round and reactive pupils present, EOMs intact bilaterally and conjunctivae normal CONJUNCTIVA: Yes conjunctivae normal PUPIL: Yes Equal, round and reactive pupils present Neck/C-Spine: COMMON NORMALS: full ROM GENERAL: Yes normal visual inspection and Yes trachea midline Resp: COMMON NORMALS: normal respiratory effort, No retractions and No use of accessory muscles EFFORT & INSPECTION: Yes able to speak in complete sentences, Yes symmetric chest movement and No tachypneic OTHER: -on RA Cardio: COMMON NORMALS: regular rate, regular rhythm, S1 normal heart sound present and S2 normal heart sound present RATE: regular rate RHYTHM: r egular rhythm HEART SOUNDS: S1 normal heart sound present and S2 normal heart sound present GI: COMMON NORMALS: Normal to inspection, nondistended, normoactive bowel sounds present, Soft to palpation and non-tender INSPECTION: Yes central obesity PALPATION: Yes Soft to palpation Extremity: NARRATIVE EXTREMITY EXAM: -bilateral foot drop -lymphedema wraps on bilateral LEs Neuro: COMMON NORMALS: moves all extremities, no focal motor deficits and no sensory deficits noted SENSORIUM/ORIENTATION: Yes somnolent GAIT: Yes Other gait observations present (WC-bound) OTHER: -Noted upper extremity tremor Psych: COMMON NORMALS: mental status grossly normal, Normal thought process present, cooperative, normal affect and speech normal SPEECH: Yes normal speech THOUGHT PROCESS: Normal thought process present Skin: COMMON NORMALS: no rashes or lesions noted, no jaundice, no petechiae and no mottling GENERAL SKIN EXAM: no rashes or lesions noted Data : 12/19/19 23:07 12/19/19 23:07 A&P Assessment and plan (1) Hyponatremia: -Noted significant hyponatremia with sodium of 116; clinically noted to be somnolent, generally quite weak -Reports poor oral intake recently so likely secondary to dehydration -Received 1 L normal saline bolus in ER, on continued IV fluid hydration -Close monitoring of sodium levels to avoid overcorrection -Check urine lytes -Seizure precautions, fall precautions Status: Acute (2) Hyperkalemia: -Noted hypokalemia with potassium of 6.0 -Has received D50, insulin, calcium gluconate and sodium bicarbonate -Repeat potassium later this morning -Telemetry monitoring Status: Acute (3) Acute kidney injury: -FANI on CKD stage 3 -Baseline creatinine is around 1 though has been elevated as high as 3.4 in the past -Nephrology consult -Gorman catheter placed in ED with noted 300 mL immediate output, continue to monitor urine output closely -Avoid nephrotoxins, renally dose meds -CT of the abdomen and pelvis done to rule out obstruction Status: Acute (4) Rhabdomyolysis: -Noted CPK elevation at 854 -On IV fluid hydration -Trend CPK levels Status: Acute Qualifiers: Rhabdomyolysis type: non-traumatic Qualified Code(s): M62.82 - Rhabdomyolysis (5) Neuropathy: -Hold gabapentin for now given acute renal injury Status: Chronic Additional A&P Information -Hypothyroidism; resume levothyroxine, check TSH -Chronic pain, on chronic narcotics; hold narcotics except for methadone to avoid withdrawal. Multilevel DJD noted on CT -Chronic LE wounds; daily dressing changes, lymphedema wraps; follows up with Dr. Jacobo at wound care clinic -lipase elevation (182); noted mild pancreas enlargement on CT -renal diet as tolerated -DVT ppx with heparin -Admit to ICU due to need for close monitoring and high risk for decompensation Attestations Medical Necessity Statement*: Jessica Herrera's hospital stay will require greater than 2 midnights for management of acute renal failure, multiple electrolytes abnormalities, rhabdomyolysis, Time Spent in Patient Care: Greater than 35 minutes (>than 50% of time spent in counselling and/or direct pt care on unit) . Coding Level of Care Code Acute Wooden Tank Erector for Chg Fwd Exam Comprehensive Diagnoses Hyponatremia E87.1 Hyperkalemia E87.5 Acute kidney injury N17.9 Rhabdomyolysis M62.82 Rhabdomyolysis type: non-traumatic Neuropathy G62.9
--- NOTE | 2019-12-20 01:55 | CTR_ITS ---
PROCEDURE INFORMATION: Exam: CT Abdomen And Pelvis Without Contrast Exam date and time: 12/20/2019 2:16 AM Age: 69 years old Clinical indication: Abdominal pain; Flank; Right; Prior surgery; Surgery type: Cholecystectomy; Additional info: Flank/abdominal pain TECHNIQUE: Imaging protocol: Computed tomography of the abdomen and pelvis without contrast. Radiation optimization: All CT scans at this facility use at least one of these dose optimization techniques: automated exposure control; mA and/or kV adjustment per patient size (includes targeted exams where dose is matched to clinical indication); or iterative reconstruction. COMPARISON: No relevant prior studies available. RADIATION DOSE METRICS: Total DLP (mGy-cm): 1871.23 FINDINGS: Tubes, catheters and devices: A balloon bladder catheter is present. Lungs: Dependent subsegmental pulmonary atelectasis. Liver: Normal. No mass. Gallbladder and bile ducts: Cholecystectomy clips in the right upper quadrant. Pancreas: Mild pancreas enlargement. Spleen: Normal. No splenomegaly. Adrenals: Normal. No mass. Kidneys and ureters: No urolithiasis. Stomach and bowel: Unremarkable. No obstruction. No mucosal thickening. Appendix: No evidence of appendicitis. Intraperitoneal space: Unremarkable. No free air. No significant fluid collection. Vasculature: Unremarkable. No abdominal aortic aneurysm. Lymph nodes: Scattered shotty retroperitoneal mild adenopathy. Bladder: Bladder appears prolapsed downward into the pelvis. Reproductive: Hysterectomy. Bones/joints: Multiple chronic rib fractures. 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 Multilevel moderate to severe lumbar spinal stenosis. Soft tissues: Small fat protruding umbilical hernia. CT/CT kidney stone [id number] IMPRESSION: 1. A balloon bladder catheter is present. Bladder appears prolapsed downward into the pelvis. 2. 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 3. Multilevel moderate to severe lumbar spinal stenosis. 4. No urolithiasis. Radiation Dose CTDIVOL = (mGy): DLP = 1871.23 (mGy-cm)
[2019-12-20] MEDS: sodium chloride 0.9% 1,000 ML 999 ML IV (02:00)
[2019-12-20 02:43] LABS: Troponin 5 2HR 64.59 ng/L (0-10); Troponin 5 2HR Delta -0.41 ABS# (0-10)
[2019-12-20] MEDS: sodium chloride 0.9% 1,000 ML 100 ML IV ×2 (02:47→08:23)
--- NOTE | 2019-12-20 03:11 | ECG_ITS ---
[facility] Test Date: 2019-12-20 Pat Name: Jessica Herrera Department: Room: Gender: Female Telecommunications Engineer: : 1950 Requested By: Jennifer Escobar Order Number: [id number] Patrick MD: Miguel Hall M.D. Measurements Intervals Pound Rate: 95 P: 72 NE: 185 QRS: 49 QRSD: 107 T: 38 QT: 349 QTc: 439 Interpretive Statements SINUS RHYTHM ANTEROSEPTAL MYOCARDIAL INFARCTION , OF INDETERMINATE AGE [40+ ms Q WAVE IN V1-V4] Compared to ECG 12/20/2019 00:02:14 ST (T wave) deviation no longer present Myocardial infarct finding still present Electronically Signed On 12-20-2019 16:26:00 CDT by Miguel Hall M.D. [id number]
[2019-12-20 04:14] LABS: Bacteria Urine 1+ /hpf; Bilirubin Urine Neg (Negative); Blood Urine Neg (Negative); Glucose Urine UA Norm (Normal); Ketones Urine Negative (Negative); Leukocyte Esterase Urine Negative (Negative); Nitrate Urine Negative (Negative); Protein Urine Neg (Negative); RBC Urine 0-4 /hpf (0-2); Squamous Epithelial Cell Urine 0-4 /hpf (0-5); Urine Appearance Clear (CLEAR); Urine Color Yellow (Yellow); Urobilinogen Urine Norm (Negative); pH Urine 5 (5-7)
[2019-12-20] MEDS: sodium bicarbonate 8.4% 1 mEq/mL 50mL Syr 100 MEQ IVP (04:17)
[2019-12-20] MEDS: calcium gluconate 0.1 gm/mL 10% SDV 10mL 1 GM IVP (04:18)
[2019-12-20] MEDS: dextrose 50% syringe 50 mL IVP (04:34)
[2019-12-20] MEDS: insulin regular-human 100 units/1 mL 10 UNIT IVP (04:34)
--- NOTE | 2019-12-20 05:37 | PC.NURSE ---
Patient to Room 11 via stretcher from ER. Placed on swimming pool maintenance, BP cuff, sat monitor. Oriented to room. Placed in hospital gown. Repositioned to left side with pillows behind back and under bilateral legs.
--- NOTE | 2019-12-20 05:45 | USCV_ITS ---
Jessica Herrera Age: 69 Gender: F : 1950 Exam Date: 12/20/2019 07:06 Ordering Phys: Kristen Cleaning MD Technologist: Erin Iverson [place] [facility] [place]: Hypotension BP: 98 / 52 HR: 93 Rhythm: Sinus Technical Quality: Technically difficult study MEASUREMENTS (Male / Female) Normal Values 2D ECHO LV Diastolic Diameter PLAX 2.4 cm 4.2 - 5.9 / 3.9 - 5.3 cm LV Systolic Diameter PLAX 1.6 cm LV Chamber Size 2.7 cm IVS Diastolic Thickness 1.8 cm 0.6 - 1.0 / 0.6 - 0.9 cm IVS Systolic Thickness 1.8 cm LVPW Diastolic Thickness 1.2 cm 0.6 - 1.0 / 0.6 - 0.9 cm LVPW Systolic Thickness 1.7 cm RV Chamber Size 1.9 cm LVOT Diameter 1.8 cm LV Ejection Fraction 2D Teich 62.5 % LV Ejection Fraction MOD 2C 72.0 % LV Ejection Fraction 2C AL 72.0 % LA Diameter 2.9 cm LA Width 3.6 cm LA Height 4.9 cm RA Width 1.2 cm RA Height 5.1 cm Aorta at Sinotubular Diameter 2.6 cm M-MODE LV Diastolic Diameter MM 3.3 cm 4.2 - 5.9 / 3.9 - 5.3 cm LV Systolic Diameter MM 1.5 cm LV Ejection Fraction MM Teich 87.0 % IVS Diastolic Thickness MM 1.0 cm 0.6 - 1.0 / 0.6 - 0.9 cm IVS Systolic Thickness MM 1.3 cm LVPW Diastolic Thickness MM 1.0 cm 0.6 - 1.0 / 0.6 - 0.9 cm LVPW Systolic Thickness MM 0.8 cm Aortic Annulus Diameter 3.1 cm LA Ao Ratio MM 0.9 DOPPLER AV Peak Velocity 132.0 cm/s LVOT Peak Velocity 101.0 cm/s AV Area Cont Eq vti 2.2 cm squared AV Area Cont Eq pk 2.1 cm squared MV Area PHT 2.2 cm squared Mitral E to A Ratio 0.6 MV E' Velocity 7.0 cm/s Mitral E to MV E' Ratio 15.9 Mitral E to LV E' Lateral Ratio 13.6 Mitral E to LV E' Septal Ratio 19.1 TV Peak E Velocity 63.0 cm/s Right Atrial Pressure 3.0 mmHg FINDINGS Left Ventricle Normal left ventricular cavity size. Hyperdynamic left ventricular systolic function. Left ventricular ejection fraction is estimated at 75 %. No regional wall motion abnormalities. Grade I/IV diastolic dysfunction (abnormal relaxation filling pattern), normal to mildly elevated filling pressures. Right Ventricle The right ventricle is normal in size and function. Right Atrium The right atrium is normal in size. Left Atrium The left atrium is normal in size. Mitral Valve Moderately thickened mitral valve. Moderate mitral annular calcification. No mitral valve stenosis. Aortic Valve Moderate aortic valve calcification. No aortic valve stenosis but mild restriction. Mild aortic valve regurgitation. Tricuspid Valve Structurally normal tricuspid valve without significant stenosis or regurgitation. Pulmonary artery systolic pressure is normal. Pulmonic Valve Structurally normal pulmonic valve without significant stenosis. There is no pulmonic regurgitation. Pericardium Normal pericardium without effusion. Aorta Normal ascending aorta dimension. CONCLUSIONS 1-Normal left ventricular cavity size. Hyperdynamic left ventricular systolic function. Left ventricular ejection fraction is estimated at 75 %. No regional wall motion abnormalities. Grade I/IV diastolic dysfunction (abnormal relaxation filling pattern), normal to mildly elevated filling pressures. 2-Moderate aortic valve calcification. No aortic valve stenosis but mild restriction. Mild aortic valve regurgitation. 3-Moderately thickened mitral valve. Moderate mitral annular calcification. No mitral valve stenosis. 4-There is no pericardial effusion. 5-There are no prior echocardiogram studies to compare. Miguel Hall MD (Electronically Signed) Final Date: 20 December 2019 12:58 S
[2019-12-20] MEDS: methadone 10 mg Tablet PO ×3 (06:01→21:51)
--- NOTE | 2019-12-20 06:26 | P.CONIM_ITS ---
Providers/Reason For Consult Consulting Physican/Specialty*: Suzie Palma DO, telenephrology Reason for Consult*: Acute kidney injury, electrolyte imbalance Attending Physician: Kristen Cleaning MD Primary Care Provider: Lloyd Prabhakar History of Present Illness History of Present Illness Jessica Herrera is a 69 year old female presented for evalution of abnormal labs. Review of Systems General: Reports: Other (reports pain in heels and feet, generalized weakness) Meds/Allergies Home Medications and Allergies Home Medications Medication Instructions Recorded Confirmed Last Taken Type allopurinol 300 mg tablet 300 mg PO QDAY 05/01/19 12/03/19 Unknown History calcium carbonate 600 mg calcium 600 mg PO BID 05/01/19 12/03/19 Unknown History (1,500 mg) tablet cetirizine 10 mg tablet 10 mg PO QDAY PRN tab 05/01/19 12/03/19 Unknown History diclofenac sodium 1 % topical gel 4 gm TOPICAL QID 05/01/19 12/03/19 Unknown History ergocalciferol (vitamin D2) 50 mcg 2,000 unit PO QDAY 05/01/19 12/03/19 Unknown History (2,000 unit) tablet midodrine 2.5 mg tablet 5 mg PO TID 05/01/19 12/03/19 Unknown History omeprazole 20 mg capsule,delayed 20 mg PO BID 05/01/19 12/03/19 Unknown History release zinc sulfate 220 mg PO QDAY 05/01/19 12/03/19 Unknown History levothyroxine 125 mcg tablet 125 mcg PO QDAY tab 05/06/19 12/03/19 Unknown History methadone 10 mg tablet 10 mg PO .Q 8H 30 Days #90 tab 05/06/19 12/03/19 Unknown Rx oxycodone 10 mg tablet 10 mg PO BID PRN 30 Days #60 tab 05/06/19 12/03/19 Unknown Rx ondansetron HCl 4 mg tablet 4 mg PO Q6H PRN #50 tab 06/05/19 12/03/19 Unknown Rx gabapentin 800 mg tablet 800 mg PO TID 30 Days #90 tab 09/24/19 12/03/19 Unknown Rx methadone 10 mg tablet 10 mg PO Q8H 30 Days #90 tab 12/03/19 12/03/19 Unknown Rx methadone 10 mg tablet 10 mg PO Q8H 30 Days #90 tab 12/03/19 12/03/19 Unknown Rx oxycodone 10 mg tablet 10 mg PO BID PRN 30 Days #60 tab 12/03/19 12/03/19 Unknown Rx oxycodone 10 mg tablet 10 mg PO BID PRN 30 Days #60 tab 12/03/19 12/03/19 Unknown Rx Allergies Allergy/AdvReac Type Severity Reaction Status Date / Time Penicillins Allergy Unknown ADR-Gastrointestinal Verified 12/03/19 09:32 Upset codeine AdvReac NAUSEA Verified 12/03/19 09:32 minocycline AdvReac GI UPSET Verified 12/03/19 09:32 zolpidem [From Ambien] AdvReac NAUSEA Verified 12/03/19 09:32 Ambien Allergy Unknown ADR-Confusi Uncoded 09/24/19 14:52 on Current Medications Current Medications Generic Name Dose Route Start Last Admin Trade Name Freq PRN Reason Stop Dose Admin Sodium Chloride 1,000 mls @ 100 mls/hr 12/19/19 21:15 12/20/19 02:47 Sodium Chloride 0.9% IV 100 mls/hr .Q10H ALEXUS Administration Methadone HCl 10 mg 12/20/19 06:00 12/20/19 06:01 Dolophine PO 10 mg Q8H ALEXUS Administration PFSH Acute PFSH: Medical History Bursitis of shoulder Chronic kidney disease, stage 3 Encounter for long-term opiate analgesic use Long-term use of high-risk medication Low back pain of over 3 months duration Opioid contract exists Osteoarthritis of both knees Surgical History Hx of cholecystectomy Hx of shoulder surgery X 4 S/P total hysterectomy Family History Mother Hypertension Father Hypertension Cancer Brother Hypertension Cancer Social History Smoking and tobacco status: never smoked Second hand smoke exposure: No Alcohol intake: never Lives independently: Yes Marital status: / History of recent travel: No Vitals/I&O/Wt Last Vital Signs Temp 97.7 F 12/20/19 05:40 Pulse 92 12/20/19 06:05 Resp 14 12/20/19 06:05 BP 98/52 12/20/19 06:05 Pulse Ox 96 12/20/19 06:05 urine output 600 ml/8 hours Weight last 48 hrs Weight 81.329 kg Weight 86.183 kg Physical Exam Const: COMMON NORMALS: no acute distress GENERAL APPEARANCE: lethargic ORIENTATION/CONSCIOUSNESS: Yes lethargic Resp: COMMON NORMALS: normal respiratory effort and clear to auscultation bilaterally AUSCULTATION: clear to auscultation bilaterally Cardio: COMMON NORMALS: regular rate and regular rhythm RATE: regular rate RHYTHM: regular rhythm Extremity: GENERAL: Yes edema Neuro: SENSORIUM/ORIENTATION: Yes lethargic Urinary Catheter Management^: Gorman: Cath Placed During This Visit: yes Urinary Catheter Date of Insertion: 12/20/19 Urinary Catheter Time of Insertion: 02:43 Data Other Data: Other data: 7.25/35/78, RA calcium 9.1, Mg 2.6, CK 854 urinalyssi 5-10 WBC, 0-4 RBC/HPF, neg protein CT ABD: normal kidneys, CT head no acute pathology, CXR possible LLL infiltrate A&P Additional A&P Information 1. Severe symptomatic hyponatremia 2. Acute kidney injury, nonoliguric 3. Hyperkalemia, metabolic acidosis 4. Chronic kidney disease, baseline serum Cr 1.3 mg/dL Recommend: IVF hydration. AM labs pending. Further recommendations once they are available. Consult Attestations Medical Necessity Statement: Critically ill in ICU Coding Level of Care Code Acute Manager Wholesale for Chg Fwd Exam Expanded Problem Focused
[2019-12-20 07:21] LABS: Glucose Urine UA Norm (Normal); Ketones Urine Negative (Negative); Protein Urine Neg (Negative); Urine Appearance Hazy (CLEAR); Urine Color Straw (Yellow); pH Urine 5 (5-7)
[2019-12-20 07:22] LABS: Add Urine Microscopic? YES; Bilirubin Urine Neg (Negative); Blood Urine Neg (Negative); Leukocyte Esterase Urine 2+ (Negative); Nitrate Urine Negative (Negative); Urobilinogen Urine Norm (Negative)
[2019-12-20 08:07] LABS: Urine Creatinine 54 mg/dL (28-217)
--- NOTE | 2019-12-20 08:23 | USR_ITS ---
PROCEDURE INFORMATION: Exam: US Abdomen, Limited; Right Upper Quadrant Exam date and time: 12/20/2019 9:39 AM Age: 69 years old Clinical indication: Abnormal findings; Abnormal lab test; Abnormal function test of other organs/systems; Additional info: Abnormal liver parameters, mild pancreatitis TECHNIQUE: Imaging protocol: US abdomen. Real time ultrasound with image documentation. Limited exam focused on the right upper quadrant. COMPARISON: CT kidney stone [id number] 12/20/2019 3:06 AM FINDINGS: Limitations: Body habitus and bowel gas. Liver: Diffuse increased echogenicity of the liver. No discrete lesion identified. Gallbladder: Cholecystectomy. Common bile duct: Not visualized. Pancreas: Poorly visualized. Right kidney: Right kidney measures 10.1 x 4.4 x 4.5 cm with normal cortical thickness and echogenicity. No hydronephrosis. No visualized stones or masses. Aorta: Poorly visualized. Inferior vena cava: Poorly visualized. US/US abdomen limited [id number] IMPRESSION: 1. Ultrasound limited by body habitus and bowel gas. 2. Echogenic liver consistent with nonspecific hepatocellular disease. No discrete lesions identified. 3. Cholecystectomy. Common bile duct not well visualized. 4. Pancreas not well visualized.
[2019-12-20 09:04] LABS: Alanine Aminotransferase 54 U/L (0-33); Albumin Level 3.1 g/dL (3.5-5.2); Alkaline Phosphatase 307 IU/L (35-105); Calcium 8.8 mg/dL (8.5-10.5); Carbon Dioxide 19 mmol/L (22-29); Chloride 93 mmol/L (98-107); Globulin 3.2 g/dL (1.3-4.6); Glomerular Filtration Rate 24.7 mL/min (90-130); Glucose 164 mg/dL (65-115); Osmolality Calculated 264 mOsm/kg (285-295); Sodium 125 mmol/L (136-145); Total Bilirubin 0.3 mg/dL (0.15-1.2); Total Protein 6.3 g/dL (6.6-8.7)
[2019-12-20 09:07] LABS: Urine Random Sodium < 10 mmol/L
[2019-12-20 09:12] LABS: Anion Gap 17.7 (5-19)
[2019-12-20 09:13] LABS: Aspartate Amino Transferase 67 U/L (0-32); Potassium 4.7 mmol/L (3.5-5.1)
[2019-12-20 09:14] LABS: Creatine Phosphokinase 438 U/L (26-192)
[2019-12-20 09:15] LABS: Blood Urea Nitrogen 84 mg/dL (8-23); Thyroid Stimulating Hormone 11.26 uIU/mL (0.27-4.20)
[2019-12-20 09:15] LABS: Basophils % 0.2 %; Eosinophils # 0.1 10^3/uL (0.0-0.8); Eosinophils % 0.8 %; Hematocrit 32.5 % (37.0-47.0); Hemoglobin 10.4 g/dL (11.5-15.3); Lymphocytes # 0.8 10^3/uL (0.8-4.8); Lymphocytes % 6.7 %; Mean Corpuscular Hemoglobin 26.5 pg (28.0-34.0); Mean Corpuscular Volume 82.7 fL (81-99); Mean Platelet Volume 9.7 fL (7.4-10.4); Monocytes # 0.7 10^3/uL (0.2-0.9); Neutrophils # 9.64 10^3/uL (1.8-7.7); Neutrophils % 85.3 %; Nucleated Red Blood Cells % 0 %; Platelet Count 382 10^3/cmm (130-400); Red Blood Count 3.93 10^6/uL (4.1-5.3); Red Cell Distribution Width 19.9 % (12.1-15.1); White Blood Count 11.3 10^3/uL (4.0-10.0)
[2019-12-20] MEDS: midodrine 5 mg TABLET PO ×3 (09:33→20:11)
[2019-12-20] MEDS: levothyroxine 125 mcg Tablet PO (09:33)
[2019-12-20] MEDS: allopurinol 300 mg Tablet PO (09:33)
[2019-12-20] MEDS: cetirizine 10 mg Tablet PO (09:33)
[2019-12-20] MEDS: heparin 5,000 unit/mL INJ 1 mL 5000 UNIT SUBCUT ×2 (09:33→20:11)
[2019-12-20] MEDS: famotidine 20 mg/2 mL INJ IVP ×2 (09:35→20:11)
--- NOTE | 2019-12-20 11:09 | PC.NURSE ---
Spoke with Dr. King. Started D5 do to jump of >10 meq Na. Will continue to monitor.
--- NOTE | 2019-12-20 11:55 | PC.NURSE ---
Staff called [facility], where pt gets her home health from. Spoke with MARLY Manrique, he states that he will come up to hospital with supplies and educate staff on her daily wound care.
[2019-12-20] MEDS: dextrose 5% 1,000 ML 60 ML IV (12:03)
[2019-12-20 13:15] LABS: Anion Gap 16.4 (5-19); Calcium 8.2 mg/dL (8.5-10.5); Carbon Dioxide 18 mmol/L (22-29); Chloride 89 mmol/L (98-107); Glucose 312 mg/dL (65-115); Osmolality Calculated 260 mOsm/kg (285-295); Potassium 4.4 mmol/L (3.5-5.1)
[2019-12-20 13:17] LABS: Troponin T (5th) Once 58 ng/L (0-10)
[2019-12-20 13:28] LABS: Blood Urea Nitrogen 81 mg/dL (8-23); Sodium 119 mmol/L (136-145)
[2019-12-20] MEDS: dextrose 5%-sod chloride 0.45% 1,000 ML 75 ML IV (14:06)
--- NOTE | 2019-12-20 14:13 | PM.PN ---
Subjective Subjective: Interval history: She is somewhat somnolent, says that this is come over her may be over the past week or so. She otherwise denies current discomfort anywhere. Denies any chest pain or pressure. Denies any shortness of breath. Denies any abdominal discomfort. When we unwrapped her lower extremities, does agree that her legs look more red than usual. Vitals/I&O/Wt Last Vital Signs Temp 97.8 F 12/20/19 07:00 Pulse 98 12/20/19 12:00 Resp 15 12/20/19 12:00 BP 93/48 12/20/19 12:00 Pulse Ox 94 12/20/19 11:00 12/19/19 12/20/19 12/20/19 22:59 06:59 14:59 Intake Total 1020 / 1020 Balance 1020 / 1020 Weight last 48 hrs Weight 81.329 kg Weight 86.183 kg Physical Exam Const: COMMON NORMALS: no acute distress and patient oriented x3 GENERAL APPEARANCE: lethargic ORIENTATION/CONSCIOUSNESS: Yes lethargic HENMT: COMMON NORMALS: oropharynx normal Neck/C-Spine: COMMON NORMALS: no JVD Resp: COMMON NORMALS: normal respiratory effort and clear to auscultation bilaterally AUSCULTATION: clear to auscultation bilaterally Cardio: COMMON NORMALS: no JVD, regular rhythm, S1 normal heart sound present, S2 normal heart sound present and No murmurs present (Cardio) RHYTHM: regular rhythm HEART SOUNDS: S1 normal heart sound present and S2 normal heart sound present GI: COMMON NORMALS: Normal to inspection, nondistended, normoactive bowel sounds present, Soft to palpation and non-tender PALPATION: Yes Soft to palpation Extremity: COMMON NORMALS: no joint enlargement and no pedal edema OTHER: Lower extremities are wrapped in compression dressings. Left lower extremity shorter and everted Healed scars on right shoulder after prior surgery. Neuro: COMMON NORMALS: patient oriented x3 and moves all extremities SENSORIUM/ORIENTATION: Yes lethargic Skin: OTHER: Bilateral chronic venous stasis dermatitis with currently more erythema below the knee on the right side, and below mid cole on the left side, with multiple venous stasis ulcerations on shins, ankles, feet bilaterally. Serous appearing drainage without foul smell, no mottling, no cyanosis, no purulent discharge. Urinary Catheter Management^: Gorman: Cath Placed During This Visit: yes Reason for Continuing Indwelling Catheter: Accurate Measurement of Urinary Output in Critically Ill Patients Urinary Catheter Date of Insertion: 12/20/19 Urinary Catheter Time of Insertion: 02:43 Data : 12/20/19 08:54 12/20/19 12:30 Micro: Microbiology 12/20/19 06:12 Blood Culture - Preliminary Blood SPECIMEN COLLECTED 12/20/19 06:10 Blood Culture - Preliminary Blood SPECIMEN COLLECTED A&P Assessment and plan (1) Hyponatremia: Appreciate nephrology recommendations. Was started on D5 half-normal after sodium showed up to 125, currently down to 119. Continue to monitor. -Close monitoring of sodium levels to avoid overcorrection -Check urine lytes -Seizure precautions, fall precautions Monitor in ICU. Status: Acute (2) Hyperkalemia: This is resolved with treatment. Currently normal. Status: Acute (3) Acute kidney injury: Appears to be gradually improving. Baseline creatinine around 1.3. Would hold diclofenac gel for now. -Nephrology consult -Gorman catheter placed in ED with noted 300 mL immediate output, continue to monitor urine output closely -Avoid nephrotoxins, renally dose meds -CT of the abdomen and pelvis done without hydronephrosis Status: Acute (4) Rhabdomyolysis: Improving. Continue gentle IV hydration. Recheck in the morning. Status: Acute Qualifiers: Rhabdomyolysis type: non-traumatic Qualified Code(s): M62.82 - Rhabdomyolysis (5) Neuropathy: -Hold gabapentin for now given acute renal injury Status: Chronic Additional A&P Information Troponin abnormality: With questionable EKG changes I suspect to be secondary to hyperkalemia. Troponin 65-65-58. She is having no chest pain. He does report history of LA may be a year ago. Suspect this is likely demand ischemia. Appreciate cardiology assessment. Acute encephalopathy: She is encephalopathic secondary to metabolic changes. Hyponatremia. Acute kidney injury. Appears to also have hypothyroidism. Cellulitis: Superimposed on chronic venous stasis dermatitis bilaterally, with multiple venous stasis ulcers. She gets good compression dressings done for her by home health. She does have significant erythema bilaterally, and reports chronic erythema, but does agree that currently they look more red than usually. Due to cellulitis at this time started on vancomycin, Cipro renal dosing. May need to be adjusted with improving FANI. Chronic venous stasis: With chronic venous dermatitis, with chronic venous stasis multiple ulcers bilateral lower extremities. Daughter reports that she was offered bilateral AKA amputation, and was considering to do that but did back out to the last minute. At this time will continue compression dressings. Continue follow-up with Dr. Jacobo. -Hypothyroidism; increased levothyroxine dose -Chronic pain, on chronic narcotics; hold narcotics except for methadone to avoid withdrawal. Multilevel DJD noted on CT -lipase elevation (182); noted mild pancreas enlargement on CT. she denies abdominal pain. There is perhaps minimal pancreatitis. Due to some alkaline phosphatase elevation assess gallbladder ultrasound. 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 Possible dislocation versus neuropathic joint of the left hip: She is nonambulatory at baseline. Thus get herself in and out of the wheelchair and to the commode at home with assistive devices. Her above medical conditions discussed with her daughter in detail who is agreeable with assessment and plan. -renal diet as tolerated -DVT ppx with heparin -Admit to ICU due to need for close monitoring and high risk for decompensation Attestations Medical Necessity Statement*: Continue admission for management of severe hyponatremia, acute kidney injury, cellulitis, rhabdomyolysis, acute encephalopathy and a number of other conditions as listed above. Coding Level of Care Code Acute Chemical Detection Expert for [facility] Fwd Exam Comprehensive Diagnoses Hyponatremia E87.1 Hyperkalemia E87.5 Acute kidney injury N17.9 Rhabdomyolysis M62.82 Rhabdomyolysis type: non-traumatic Neuropathy G62.9
--- NOTE | 2019-12-20 14:41 | P.CONIM_ITS ---
Providers/Reason For Consult Consulting Physican/Specialty*: Cardiology Reason for Consult*: Abnormal cardiac markers, abnormal EKG Attending Physician: Rodolfo Donis Primary Care Provider: Lloyd Prabhakar History of Present Illness History of Present Illness Jessica Herrera is a 69 year old female who is not a good historian admitted with confusion hyponatremia lower extremity unhealed ulcers and possible cellulitis with sepsis. Twelve-lead EKG was noted to have early repolarization abnormality with mildly elevated cardiac markers. Renal function test was performed which showed worsening of creatinine and hyponatremia. She was treated for hyponatremia and antibiotics. Renal service is on board. Patient denies any chest pain today or in the near past. Patient denies any worsening of shortness of breath. She says she was told at one point on the basis of EKG that she may have old myocardial infarction I do not have access to it. She denies any prior history of stress test or angiogram. She denies PND orthopnea. She has bilateral lower extremity edema with possible venous stasis and venous ulcer. Review of Systems General: Reports: Other (reports pain in heels and feet, generalized weakness) Narrative: -difficult to obtain due to somnolence Const: Reports: body aches, change in appetite (decreased appetite), fatigue and malaise; Denies: fever(s), chills or diaphoresis Eyes: Denies: change in vision, blurry vision, photophobia, eye discomfort, eye discharge, eye redness or yellow eyes ENMT: Reports: dry mouth; Denies: throat pain, odynophagia, hoarseness, swelling of lips/tongue, ear or mastoid pain, ear discharge, change in hearing or nasal discharge Card: Denies: chest pain, palpitations, irregular heart rhythm, edema, swelling of feet/ankles, lightheadedness, syncope, pre-syncope, dyspnea on exertion or orthopnea Resp: Denies: dyspnea, productive cough, non-productive cough, wheezing, hemoptysis or chest congestion GI: Reports: diarrhea; Denies: abdominal pain, nausea, vomiting, hematemesis, coffee ground emesis, heartburn, constipation, GI cramping, hematochezia or melena : Reports: dysuria, urinary frequency, urinary urgency, urinary hesitancy and oliguria; Denies: flank pain or hematuria Musc: Reports: neck pain; Denies: back pain, extremity pain, extremity swelling, joint pain, joint swelling, joint redness, joint warmth or joint stiffness Skin/Breast: Denies: rash, pruritus, erythema, skin pain or skin tenderness Neuro: Reports: headache(s) and weakness in extremities; Denies: numbness in extremities, sensory changes, lack of coordination, difficulty walking, dizziness, vertigo, confusion, Slurred speech present or seizure-like activity Psych: Denies: anxiety Jose Elias/Lymph: Denies: easy bruising, easy bleeding, petechiae, purpura or enlarged lymph nodes All/Imm: Denies: urticaria, throat swelling, tongue swelling, facial swelling or acute wheezing Meds/Allergies Home Medications and Allergies Home Medications Medication Instructions Recorded Confirmed Last Taken Type allopurinol 300 mg tablet 300 mg PO QDAY 05/01/19 12/20/19 12/19/19 History calcium carbonate 600 mg calcium 600 mg PO BID 05/01/19 12/20/19 12/19/19 History (1,500 mg) tablet cetirizine 10 mg tablet 10 mg PO QDAY PRN tab 05/01/19 12/20/19 12/19/19 History diclofenac sodium 1 % topical gel 4 gm TOPICAL QID 05/01/19 12/20/19 12/19/19 History ergocalciferol (vitamin D2) 50 mcg 2,000 unit PO QDAY 05/01/19 12/20/19 12/19/19 History (2,000 unit) tablet midodrine 2.5 mg tablet 5 mg PO TID 05/01/19 12/20/19 Unknown History omeprazole 20 mg capsule,delayed 20 mg PO BID 05/01/19 12/20/19 12/19/19 History release zinc sulfate 220 mg PO QDAY 05/01/19 12/20/19 12/19/19 History levothyroxine 125 mcg tablet 125 mcg PO QDAY tab 05/06/19 12/20/19 12/19/19 History ondansetron HCl 4 mg tablet 4 mg PO Q6H PRN #50 tab 06/05/19 12/20/19 12/19/19 Rx gabapentin 800 mg tablet 800 mg PO TID 30 Days #90 tab 09/24/19 12/20/19 12/19/19 Rx methadone 10 mg tablet 10 mg PO Q8H 30 Days #90 tab 12/03/19 12/20/19 12/19/19 Rx oxycodone 10 mg tablet 10 mg PO BID PRN 30 Days #60 tab 12/03/19 12/20/1912/18 Rx Allergies Allergy/AdvReac Type Severity Reaction Status Date / Time Penicillins Allergy Unknown ADR-Gastrointestinal Verified 12/03/19 09:32 Upset codeine AdvReac NAUSEA Verified 12/03/19 09:32 minocycline AdvReac GI UPSET Verified 12/03/19 09:32 zolpidem [From Ambien] AdvReac NAUSEA Verified 12/03/19 09:32 Ambien Allergy Unknown ADR-Confusi Uncoded 09/24/19 14:52 on Current Medications Current Medications Generic Name Dose Route Start Last Admin Trade Name Freq PRN Reason Stop Dose Admin Allopurinol 300 mg 12/20/19 09:00 12/20/19 09:33 Zyloprim PO 300 mg DAILY ALEXUS Administration Cetirizine HCl 10 mg 12/20/19 09:00 12/20/19 09:33 Zyrtec PO 10 mg DAILY ALEXUS Administration Famotidine 20 mg 12/20/19 08:00 12/20/19 09:35 Pepcid Inj IVP 20 mg Q12H ALEXUS Administration Heparin Sodium (Beef Lung) 5,000 unit 12/20/19 08:00 12/20/19 09:33 Heparin SUBCUT 5,000 unit Q12H ALEXUS Administration Dextrose/Sodium Chloride 1,000 mls @ 75 mls/hr 12/20/19 13:45 12/20/19 14:06 Dextrose 5%-Sod Chloride 0.45% IV 75 mls/hr .[id number] ALEXUS Administration Levothyroxine Sodium 125 mcg 12/20/19 09:00 12/20/19 09:33 Synthroid PO 125 mcg DAILY ALEXUS Administration Methadone HCl 10 mg 12/20/19 06:00 12/20/19 14:07 Dolophine PO 10 mg Q8H ALEXUS Administration Midodrine 5 mg 12/20/19 09:00 12/20/19 09:33 Proamatine PO 5 mg TID ALEXUS Administration PFSH Acute PFSH: Medical History Bursitis of shoulder Chronic kidney disease, stage 3 Encounter for long-term opiate analgesic use Long-term use of high-risk medication Low back pain of over 3 months duration Opioid contract exists Osteoarthritis of both knees Surgical History Hx of cholecystectomy Hx of shoulder surgery X 4 S/P total hysterectomy Family History Mother Hypertension Father Hypertension Cancer Brother Hypertension Cancer Social History Smoking and tobacco status: never smoked Second hand smoke exposure: No Alcohol intake: never Lives independently: Yes Marital status: / History of recent travel: No Dietary Habits: Current diet type/program: regular Caffeine: Yes Caffeine intake frequency: carbonated beverages Home Safety: Firearms in home: Yes Firearms unloaded and locked?: Yes Vitals/I&O/Wt Last Vital Signs Temp 97.8 F 12/20/19 07:00 Pulse 98 12/20/19 12:00 Resp 15 12/20/19 12:00 BP 93/48 12/20/19 12:00 Pulse Ox 94 12/20/19 11:00 12/19/19 12/20/19 12/20/19 22:59 06:59 14:59 Intake Total 1020 / 1020 Balance 1020 / 1020 Weight last 48 hrs Weight 179 lb 4.8 oz Weight 190 lb Physical Exam Narrative: EXAM NARRATIVE: GENERAL: Patient is alert, awake and oriented x3. NECK: No jugular vein distension. HEENT: No cyanosis. No icterus. No pallor. HEART: Regular S1 and S2. No murmur, rub or gallop. LUNGS: Clear to auscultate bilaterally. ABDOMEN: Soft, nontender and nondistended. Positive bowel sounds. No guarding, rebound or tenderness. CENTRAL NERVOUS SYSTEM: Grossly nonfocal. EXTREMITIES: Lower extremities with 1+ edema bilaterally. Bilateral venous ulcer with necrotic base and cellulits Urinary Catheter Management^: Gorman: Cath Placed During This Visit: yes Reason for Continuing Indwelling Catheter: Accurate Measurement of Urinary Output in Critically Ill Patients Urinary Catheter Date of Insertion: 12/20/19 Urinary Catheter Time of Insertion: 02:43 Data Labs: Other Labs: CONCLUSIONS 1-Normal left ventricular cavity size. Hyperdynamic left ventricular systolic function. Left ventricular ejection fraction is estimated at 75 %. No regional wall motion abnormalities. Grade I/IV diastolic dysfunction (abnormal relaxation filling pattern), normal to mildly elevated filling pressures. 2-Moderate aortic valve calcification. No aortic valve stenosis but mild restriction. Mild aortic valve regurgitation. 3-Moderately thickened mitral valve. Moderate mitral annular calcification. No mitral valve stenosis. 4-There is no pericardial effusion. 5-There are no prior echocardiogram studies to compare. Micro: Micro: Microbiology 12/20/19 06:12 Blood Culture - Pr eliminary Blood SPECIMEN [facility] 12/20/19 06:10 Blood Culture - Pr eliminary Blood SPECIMEN [facility] A&P Assessment and plan (1) High level of cardiac marker: Patient is asymptomatic, twelve-lead EKG is consistent with early repolarization abnormality and not actually injury, cardiac markers elevated in the face of high CK may not represent true IA. Suggested statin aspirin and beta-layne when blood pressure remained more stable. Status: Acute (2) Acute kidney injury: Started improving. Nephrology is on board Status: Acute (3) Acute hyponatremia: Stable and improving Status: Acute Coding Level of Care Code New Pt Acute Reporting Lead for [facility] Fwd Patient Type New History Detailed Exam Detailed Medical Decision Making Moderate Complexity Diagnoses High level of cardiac marker R74.8 Acute kidney injury N17.9 Acute hyponatremia E87.1
[2019-12-20] MEDS: ciprofloxacin 200 MG/100 ML PREMIX 100 MG IV (15:03)
[2019-12-20 16:30] LABS: Sodium 123 mmol/L (136-145)
[2019-12-21] VITALS (22 sets, daily range): BP systolic 82–124; BP diastolic 40–63; PULSE 63–89; RESP 10–25; TEMP 36.4–36.9; O2SAT 93–99; BMI 28.0
[2019-12-21 00:43] LABS: Sodium 122 mmol/L (136-145)
[2019-12-21] MEDS: methadone 10 mg Tablet PO ×2 (05:11→13:45)
[2019-12-21 05:18] LABS: Basophils # 0.1 10^3/uL (0.0-0.1); Basophils % 0.8 %; Eosinophils # 0.2 10^3/uL (0.0-0.8); Eosinophils % 2.9 %; Hematocrit 29.6 % (37.0-47.0); Hemoglobin 9.4 g/dL (11.5-15.3); Lymphocytes % 13.6 %; Mean Corpuscular HGB Conc 31.8 g/dL (30.0-36.0); Mean Corpuscular Hemoglobin 26.1 pg (28.0-34.0); Mean Corpuscular Volume 82.2 fL (81-99); Mean Platelet Volume 9.6 fL (7.4-10.4); Monocytes # 0.7 10^3/uL (0.2-0.9); Monocytes % 9.3 %; Neutrophils # 5.51 10^3/uL (1.8-7.7); Nucleated Red Blood Cells % 0 %; Platelet Count 345 10^3/cmm (130-400); Red Cell Distribution Width 20.4 % (12.1-15.1); White Blood Count 7.7 10^3/uL (4.0-10.0)
[2019-12-21] MEDS: dextrose 5% 1,000 ML 30 ML IV ×2 (05:30→19:51)
[2019-12-21 06:12] LABS: Alanine Aminotransferase 41 U/L (0-33); Albumin Level 2.9 g/dL (3.5-5.2); Alkaline Phosphatase 257 IU/L (35-105); Anion Gap 14.3 (5-19); Aspartate Amino Transferase 40 U/L (0-32); Blood Urea Nitrogen 50 mg/dL (8-23); Calcium 8.5 mg/dL (8.5-10.5); Carbon Dioxide 20 mmol/L (22-29); Chloride 97 mmol/L (98-107); Creatine Phosphokinase 160 U/L (26-192); Globulin 2.7 g/dL (1.3-4.6); Glomerular Filtration Rate 49.2 mL/min (90-130); Glucose 127 mg/dL (65-115); Magnesium 2.2 mg/dL (1.7-2.3); Osmolality Calculated 264 mOsm/kg (285-295); Potassium 4.3 mmol/L (3.5-5.1); Sodium 127 mmol/L (136-145); Thyroid Stimulating Hormone 11.88 uIU/mL (0.27-4.20); Total Bilirubin 0.3 mg/dL (0.15-1.2); Total Protein 5.6 g/dL (6.6-8.7)
--- NOTE | 2019-12-21 06:38 | P.PN_ITS ---
Subjective Subjective: Interval history: feels better. has leg edema. no n/v/f/c/mendoza/d/sob/itching Medications: Reviewed: Yes Medication Review Details: Current Medications Acetaminophen (Tylenol) 650 mg PO Q6H PRN PRN Reason: MILD PAIN OR INCREASE TEMP Allopurinol (Zyloprim) 300 mg PO DAILY [facility] Last Admin: 12/20/19 09:33 Dose: 300 mg Documented by: Cetirizine HCl (Zyrtec) 10 mg PO DAILY [facility] Last Admin: 12/20/19 09:33 Dose: 10 mg Documented by: Famotidine (Pepcid Inj) 20 mg IVP Q12H [facility] Last Admin: 12/20/19 20:11 Dose: 20 mg Documented by: Heparin Sodium (Beef Lung) (Heparin) 5,000 unit SUBCUT Q12H [facility] Last Admin: 12/20/19 20:11 Dose: 5,000 unit Documented by: Vancomycin HCl 1,500 mg/ (Sodium Chloride) 250 mls @ 250 mls/hr IV Q24H [facility]; Protocol Last Admin: 12/20/19 15:50 Dose: 250 mls/hr Documented by: Ciprofloxacin/Dextrose (Cipro) 200 mg in 100 mls @ 100 mls/hr IV Q24H [facility]; Protocol Last Admin: 12/20/19 15:03 Dose: 100 mls/hr Documented by: Dextrose (D5w) 1,000 mls @ 30 mls/hr IV .Q24H [facility] Last Admin: 12/21/19 05:30 Dose: 30 mls/hr Documented by: Levothyroxine Sodium (Synthroid) 112 mcg PO DAILY [facility] Levothyroxine Sodium (Synthroid) 25 mcg PO DAILY [facility] Lorazepam (Ativan) 1 mg IVP Q6H PRN PRN Reason: ANXIETY Methadone HCl (Dolophine) 10 mg PO Q8H [facility] Last Admin: 12/21/19 05:11 Dose: 10 mg Documented by: Midodrine (Proamatine) 5 mg PO TID [facility] Last Admin: 12/20/19 20:11 Dose: 5 mg Documented by: Ondansetron HCl (Zofran) 4 mg IVP Q6H PRN PRN Reason: NAUSEA AND VOMITING Vitals/I&O/Wt Last Vital Signs Temp 98.1 F 12/21/19 04:00 Pulse 65 12/21/19 06:00 Resp 14 12/21/19 05:11 BP 101/47 12/21/19 06:00 Pulse Ox 98 12/21/19 06:00 12/20/19 12/20/19 12/21/19 14:59 22:59 06:59 Intake Total 1020 / 1020 410 / 1430 60 / 1490 Output Total 1850 / 1850 2400 / 4250 Balance 1020 / 1020 -1440 / -420 -2340 / -2760 Weight last 48 hrs Weight 81.329 kg Weight 81.329 kg Weight 86.183 kg Physical Exam Narrative: EXAM NARRATIVE: swollen, obese in bed, NARD heent- nc/at, eomi, anicteric, neck supple- no jvp lungs crackles heart reg, no rub abd soft, nt, nd, +BS ext b/l jessica, legs wrapped, ulcers per RN neuro- a,a,o x 3 Urinary Catheter Management^: Gorman: Cath Placed During This Visit: yes Reason for Continuing Indwelling Catheter: Accurate Measurement of Urinary Output in Critically Ill Patients Urinary Catheter Date of Insertion: 12/20/19 Urinary Catheter Time of Insertion: 02:43 Data : 12/21/19 04:41 12/21/19 04:41 Micro: Microbiology 12/20/19 06:12 Blood Culture - Preliminary Blood SPECIMEN COLLECTED 12/20/19 06:10 Blood Culture - Preliminary Blood SPECIMEN COLLECTED A&P Additional A&P Information 69 yr old female lower extremity ulcers/ Q cellulitis 1. hyponatremia-prerenal improving 2. FANI- prerenal improving -per chart baseline cr is 1.3 mg/dl- she is better than baseline at this time -hold ivf and repeat chem 7 in 6 hrs -monitor vanco levels 3/ MS improving 4. rhabdomyolysis - improving 5. hypothyroidism- tsh 11.8- on levothyroxine 6. hyperkalmeia improved 7. anemia per pmd 8. met acidosis from infection and fani- improving Attestations Medical Necessity Statement*: infection, electrolyte abnormalities Time Spent in Patient Care: 16 - 35 minutes Coding Level of Care Code Acute Radiologist Diagnostic for Sam Schmidt
--- NOTE | 2019-12-21 08:58 | P.PN_ITS ---
Subjective Subjective: Interval history: Today she reports feeling much better. She is awake and alert. She does states she has persistent numbness in her right arm which started sometime last week. She also complains of pain on the right side of the neck, and crackling and popping sensation when moving her head side to side. She denies any headache, dizziness any vision changes, any new numbness elsewhere or weakness. Vitals/I&O/Wt Last Vital Signs Temp 98.1 F 12/21/19 04:00 Pulse 65 12/21/19 06:00 Resp 14 12/21/19 05:11 BP 101/47 12/21/19 06:00 Pulse Ox 98 12/21/19 06:00 12/20/19 12/21/19 12/21/19 22:59 06:59 14:59 Intake Total 410 / 1430 60 / 1490 Output Total 1850 / 1850 2400 / 4250 Balance -1440 / -420 -2340 / -2760 Weight last 48 hrs Weight 81.329 kg Weight 81.329 kg Weight 86.183 kg Physical Exam Const: COMMON NORMALS: no acute distress, patient oriented x3 and alert ORIENTATION/CONSCIOUSNESS: Yes awake HENMT: COMMON NORMALS: oropharynx normal Neck/C-Spine: COMMON NORMALS: no JVD Resp: COMMON NORMALS: normal respiratory effort and clear to auscultation bilaterally AUSCULTATION: clear to auscultation bilaterally Cardio: COMMON NORMALS: no JVD, regular rhythm, S1 normal heart sound present, S2 normal heart sound present and No murmurs present (Cardio) RHYTHM: regular rhythm HEART SOUNDS: S1 normal heart sound present and S2 normal heart sound present GI: COMMON NORMALS: Normal to inspection, nondistended, normoactive bowel sounds present, Soft to palpation and non-tender PALPATION: Yes Soft to palpation Extremity: COMMON NORMALS: no joint enlargement and no pedal edema OTHER: Lower extremities are wrapped in compression dressings. Left lower extremity shorter and everted Healed scars on right shoulder after prior surgery. 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 She does report some numbness of the right arm which has been new since last week. Neuro: COMMON NORMALS: patient oriented x3 and moves all extremities SENSORIUM/ORIENTATION: Yes alert Skin: COMMON NORMALS: no rashes or lesions noted GENERAL SKIN EXAM: no rashes or lesions noted OTHER: Bilateral chronic venous stasis dermatitis with currently more erythema below the knee on the right side, and below mid cole on the left side, with multiple venous stasis ulcerations on shins, ankles, feet bilaterally. Serous appearing drainage without foul smell, no mottling, no cyanosis, no purulent discharge. Urinary Catheter Management^: Gorman: Cath Placed During This Visit: yes Reason for Continuing Indwelling Catheter: Accurate Measurement of Urinary Output in Critically Ill Patients Urinary Catheter Date of Insertion: 12/20/19 Urinary Catheter Time of Insertion: 02:43 Data : 12/21/19 04:41 12/21/19 04:41 Micro: Microbiology 12/20/19 06:15 Urine Culture - Preliminary Urine Catheterized 12/20/19 06:12 Blood Culture - Preliminary Blood NEGATIVE TO DATE 12/20/19 06:10 Blood Culture - Preliminary Blood NEGATIVE TO DATE A&P Assessment and plan (1) Hyponatremia: Appreciate nephrology recommendations. Improving. Continue D5 for now. Recheck. -Close monitoring of sodium levels to avoid overcorrection -Check urine lytes -Seizure precautions, fall precautions Monitor in ICU. If sodium continues to improve gradually may move out of intensive care unit. Status: Acute (2) Hyperkalemia: This is resolved with treatment. Currently normal. Status: Acute (3) Acute kidney injury: Appears to be gradually improving. Baseline creatinine around 1.3. Would hold diclofenac gel for now. -Nephrology consult -Gorman to continue to monitor urine output closely -Avoid nephrotoxins, renally dose meds -CT of the abdomen and pelvis done without hydronephrosis Status: Acute (4) Rhabdomyolysis: Improving. Continue gentle IV hydration. Recheck in the morning. Status: Acute Qualifiers: Rhabdomyolysis type: non-traumatic Qualified Code(s): M62.82 - Rhabdomyolysis (5) Neuropathy: -Hold gabapentin for now given acute renal injury Status: Chronic Additional A&P Information Cellulitis: Continue vancomycin for now. No signs of sepsis. Superimposed on chronic venous stasis dermatitis bilaterally, with multiple venous stasis ulcers. She gets good compression dressings done for her by home health. She does have significant erythema bilaterally, and reports chronic erythema, but does agree that currently they look more red than usually. May need to be adjusted with improving FANI. Right arm numbness: Reports since last week has had numbness of the right arm. She was on a somnolent, confused earlier, so this appears to be the first time she is reporting it. Says that it has not improved significantly. Says that she has been having pain in the right side of her neck as well with cracking and popping sounds when she is moving her neck. Says the power is the same in the right upper and lower extremity. There is no facial droop. There is no sensory neglect. Otherwise power is the same as usual for her bilaterally. Sensation are unchanged on lower extremities. Visual conner are full to confrontation. FNF is normal. I discussed with her possible etiologies. Cannot exclude that this may not have been a stroke, however, with lack of father focal abnormalities, and with localized pain in the right neck, with other associated symptoms this appears to be more secondary to possible radiculopathy secondary to DJD. Discussed tomorrow potentially could assess with MRI brain to exclude CVA. Assess with CT C-spine today. Troponin abnormality: No chest pain. EKG changes likely repolarization. Troponin 65-65-58. She is having no chest pain. He does report history of RI may be a year ago. Suspect this is likely demand ischemia. Appreciate cardiology assessment. Acute encephalopathy: Now resolved. She is encephalopathic secondary to metabolic changes. Hyponatremia. Acute kidney injury. Hypothyroidism. Chronic venous stasis: With chronic venous dermatitis, with chronic venous stasis multiple ulcers bilateral lower extremities. Daughter reports that she was offered bilateral AKA amputation, and was considering to do that but did back out to the last minute. At this time will continue compression dressings. Continue follow-up with Dr. Jacobo. -Hypothyroidism; increased levothyroxine dose to 137 -Chronic pain, on chronic narcotics; hold narcotics except for methadone to avoid withdrawal. Multilevel DJD noted on CT -lipase elevation (182); noted mild pancreas enlargement on CT. still no abdominal pain. She is eating. Perhaps minimal pancreatitis. GB us -status post cholecystectomy, CBD could not be visualized. On CT no reports of abnormal CBD. Recheck. 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 Possible dislocation versus neuropathic joint of the left hip: She is nonambulatory at baseline. Thus get herself in and out of the wheelchair and to the commode at home with assistive devices. Her above medical conditions discussed with her daughter in detail who is agreeable with assessment and plan. -renal diet as tolerated -DVT ppx with heparin Attestations Medical Necessity Statement*: Continue admission for assessment of management of improving severe hyponatremia, cellulitis, right arm numbness. Coding Level of Care Code Acute Aerial Advertiser for Sam Schmidt Diagnoses Hyponatremia E87.1 Hyperkalemia E87.5 Acute kidney injury N17.9 Rhabdomyolysis M62.82 Rhabdomyolysis type: non-traumatic Neuropathy G62.9
--- NOTE | 2019-12-21 08:58 | CTR_ITS ---
PROCEDURE INFORMATION: Exam: CT Cervical Spine Without Contrast Exam date and time: 12/21/2019 9:11 AM Age: 69 years old Clinical indication: Neck pain and radicular pain (radiculopathy); Cervical region; Additional info: Neck pain, R arm numbness TECHNIQUE: Imaging protocol: Computed tomography images of the cervical spine without contrast. Radiation optimization: All CT scans at this facility use at least one of these dose optimization techniques: automated exposure control; mA and/or kV adjustment per patient size (includes targeted exams where dose is matched to clinical indication); or iterative reconstruction. COMPARISON: No relevant prior studies available. RADIATION DOSE METRICS: Total DLP (mGy-cm): 514.93 FINDINGS: Vertebrae: 3.5 mm anterolisthesis of C6 on C7. No acute bony injury in the visualized cervical spine. Discs/Spinal canal/Neural foramina: Multilevel degenerative change, of greatest severity at the C6-C7 level. Note that assessment of disc, spinal cord, and nerve root pathology is limited in the absence of intrathecal contrast. Multilevel bilateral facet arthropathy, along with bilateral ankylosis of the C2-C3 facets. Soft tissues: Unremarkable. Lungs: Unremarkable as visualized. CT/CT cervical spin wo con* [id number] IMPRESSION: 1. 3.5 mm anterolisthesis of C6 on C7. 2. Multilevel degenerative change, of greatest severity at the C6-C7 level. Radiation Dose CTDIVOL = (mGy): DLP = 514.93 (mGy-cm)
[2019-12-21] MEDS: allopurinol 300 mg Tablet PO (09:05)
[2019-12-21] MEDS: levothyroxine 112 mcg Tablet PO (09:05)
[2019-12-21] MEDS: levothyroxine 25 mcg Tablet PO (09:05)
[2019-12-21] MEDS: cetirizine 10 mg Tablet PO (09:05)
[2019-12-21] MEDS: midodrine 5 mg TABLET PO ×3 (09:05→19:51)
[2019-12-21] MEDS: famotidine 20 mg/2 mL INJ IVP ×2 (09:05→19:51)
[2019-12-21] MEDS: heparin 5,000 unit/mL INJ 1 mL 5000 UNIT SUBCUT ×2 (09:06→19:49)
[2019-12-21] MEDS: gabapentin 400 mg Capsule 800 MG PO ×3 (09:11→19:49)
[2019-12-21] MEDS: oxyCODONE 10 mg ER (12 HR) Tablet PO (09:12)
--- NOTE | 2019-12-21 10:08 | PC.NURSE ---
Pt taken to CT via bed. mask put on pt while out in heart.
[2019-12-21 12:03] LABS: Anion Gap 13.2 (5-19); Blood Urea Nitrogen 43 mg/dL (8-23); Calcium 8.4 mg/dL (8.5-10.5); Carbon Dioxide 19 mmol/L (22-29); Chloride 98 mmol/L (98-107); Glomerular Filtration Rate 49.2 mL/min (90-130); Glucose 109 mg/dL (65-115); Osmolality Calculated 260 mOsm/kg (285-295); Potassium 4.2 mmol/L (3.5-5.1); Sodium 126 mmol/L (136-145); Uric Acid 5.1 mg/dL (2.4-5.7)
--- NOTE | 2019-12-21 13:11 | P.PN_ITS ---
Subjective Subjective: Interval history: Overall feeling better except she complained of right arm numbness and reduced movement. Interpretative Dancer is equal however she is not able to lift more than half way from the bed her right arm. Medications: Reviewed: Yes Medication Review Details: Current Medications Acetaminophen (Tylenol) 650 mg PO Q6H PRN PRN Reason: MILD PAIN OR INCREASE TEMP Allopurinol (Zyloprim) 300 mg PO DAILY [facility] Last Admin: 12/20/19 09:33 Dose: 300 mg Documented by: Cetirizine HCl (Zyrtec) 10 mg PO DAILY [facility] Last Admin: 12/20/19 09:33 Dose: 10 mg Documented by: Famotidine (Pepcid Inj) 20 mg IVP Q12H [facility] Last Admin: 12/20/19 20:11 Dose: 20 mg Documented by: Heparin Sodium (Beef Lung) (Heparin) 5,000 unit SUBCUT Q12H [facility] Last Admin: 12/20/19 20:11 Dose: 5,000 unit Documented by: Vancomycin HCl 1,500 mg/ (Sodium Chloride) 250 mls @ 250 mls/hr IV Q24H [facility]; Protocol Last Admin: 12/20/19 15:50 Dose: 250 mls/hr Documented by: Ciprofloxacin/Dextrose (Cipro) 200 mg in 100 mls @ 100 mls/hr IV Q24H [facility]; Protocol Last Admin: 12/20/19 15:03 Dose: 100 mls/hr Documented by: Dextrose (D5w) 1,000 mls @ 30 mls/hr IV .Q24H [facility] Last Admin: 12/21/19 05:30 Dose: 30 mls/hr Documented by: Levothyroxine Sodium (Synthroid) 112 mcg PO DAILY [facility] Levothyroxine Sodium (Synthroid) 25 mcg PO DAILY [facility] Lorazepam (Ativan) 1 mg IVP Q6H PRN PRN Reason: ANXIETY Methadone HCl (Dolophine) 10 mg PO Q8H [facility] Last Admin: 12/21/19 05:11 Dose: 10 mg Documented by: Midodrine (Proamatine) 5 mg PO TID [facility] Last Admin: 12/20/19 20:11 Dose: 5 mg Documented by: Ondansetron HCl (Zofran) 4 mg IVP Q6H PRN PRN Reason: NAUSEA AND VOMITING Vitals/I&O/Wt Last Vital Signs Temp 98.4 F 12/21/19 10:00 Pulse 63 12/21/19 12:00 Resp 11 L 12/21/19 12:00 BP 86/40 12/21/19 12:00 Pulse Ox 96 12/21/19 12:00 12/20/19 12/21/19 12/21/19 22:59 06:59 14:59 Intake Total 410 / 1430 60 / 1490 540 / 540 Output Total 1850 / 1850 2400 / 4250 Balance -1440 / -420 -2340 / -2760 540 / 540 Weight last 48 hrs Weight 179 lb 4.8 oz Weight 179 lb 4.8 oz Weight 190 lb Physical Exam Narrative: EXAM NARRATIVE: GENERAL: Patient is alert, awake and oriented x3. NECK: No jugular vein distension. HEENT: No cyanosis. No icterus. No pallor. HEART: Regular S1 and S2. No murmur, rub or gallop. LUNGS: Clear to auscultate bilaterally. ABDOMEN: Soft, nontender and nondistended. Positive bowel sounds. No guarding, rebound or tenderness. CENTRAL NERVOUS SYSTEM: Right arm weakness. EXTREMITIES: Lower extremities with 1+ edema bilaterally. Bilateral venous ulcer with necrotic base and cellulits. Today she is wearing stockings Urinary Catheter Management^: Gorman: Cath Placed During This Visit: yes Reason for Continuing Indwelling Catheter: Accurate Measurement of Urinary Output in Critically Ill Patients Urinary Catheter Date of Insertion: 12/20/19 Urinary Catheter Time of Insertion: 02:43 Data : 12/21/19 04:41 12/21/19 11:35 Micro: Microbiology 12/20/19 06:15 Urine Culture - Preliminary Urine Catheterized 12/20/19 06:12 Blood Culture - Preliminary Blood NEGATIVE TO DATE 12/20/19 06:10 Blood Culture - Preliminary Blood NEGATIVE TO DATE A&P Assessment and plan (1) High level of cardiac marker: Stable. Continue as per plan. Continue to monitor. Denies chest pain. No arrhythmia on telemetry Status: Acute (2) Acute kidney injury: Continues to improve. Status: Acute (3) Acute hyponatremia: Continues to improve. Patient is more oriented now Status: Acute (4) Weakness: Treatment as per medicine. Patient is scheduled for MRI Status: Acute Attestations Medical Necessity Statement*: Patient require continuation hospitalization for above defined care. Coding Level of Care Code Established Pt Acute Double Bottom Driver for g Fwd Patient Type Established History Expanded Problem Focused Exam Expanded Problem Focused Medical Decision Making Moderate Complexity Diagnoses High level of cardiac marker R74.8 Acute kidney injury N17.9 Acute hyponatremia E87.1 Weakness R53.1
[2019-12-21] MEDS: ciprofloxacin 200 MG/100 ML PREMIX 100 MG IV (14:52)
[2019-12-21] MEDS: atorvastatin 40 mg Tablet PO (19:50)
[2019-12-22] VITALS (13 sets, daily range): BP systolic 100–121; BP diastolic 53–69; PULSE 64–79; RESP 16–19; TEMP 36.6–37.1; O2SAT 95–97; BMI 28.0
[2019-12-22 05:55] LABS: Basophils # 0.1 10^3/uL (0.0-0.1); Eosinophils # 0.3 10^3/uL (0.0-0.8); Eosinophils % 3.7 %; Hematocrit 32.4 % (37.0-47.0); Hemoglobin 10.1 g/dL (11.5-15.3); Lymphocytes # 1.5 10^3/uL (0.8-4.8); Lymphocytes % 17.3 %; Mean Corpuscular HGB Conc 31.2 g/dL (30.0-36.0); Mean Corpuscular Hemoglobin 25.8 pg (28.0-34.0); Mean Corpuscular Volume 82.7 fL (81-99); Mean Platelet Volume 9.8 fL (7.4-10.4); Monocytes # 0.9 10^3/uL (0.2-0.9); Monocytes % 10.9 %; Neutrophils # 5.43 10^3/uL (1.8-7.7); Neutrophils % 64.5 %; Nucleated Red Blood Cells % 0 %; Platelet Count 377 10^3/cmm (130-400); Red Blood Count 3.92 10^6/uL (4.1-5.3); Red Cell Distribution Width 21.2 % (12.1-15.1); White Blood Count 8.4 10^3/uL (4.0-10.0)
[2019-12-22] MEDS: methadone 10 mg Tablet PO ×3 (06:01→21:27)
[2019-12-22 06:18] LABS: Alanine Aminotransferase 45 U/L (0-33); Alkaline Phosphatase 257 IU/L (35-105); Anion Gap 13.7 (5-19); Aspartate Amino Transferase 42 U/L (0-32); Blood Urea Nitrogen 32 mg/dL (8-23); Calcium 8.3 mg/dL (8.5-10.5); Carbon Dioxide 20 mmol/L (22-29); Chloride 97 mmol/L (98-107); Glomerular Filtration Rate 62.1 mL/min (90-130); Glucose 113 mg/dL (65-115); Lipase 111 U/L (13-60); Magnesium 2.1 mg/dL (1.7-2.3); Osmolality Calculated 260 mOsm/kg (285-295); Phosphorus 2.1 mg/dL (2.5-4.5); Potassium 4.7 mmol/L (3.5-5.1); Sodium 126 mmol/L (136-145); Total Bilirubin 0.3 mg/dL (0.15-1.2)
--- NOTE | 2019-12-22 07:03 | P.PN_ITS ---
Subjective Subjective: Interval history: c/o leg pain and edema. no n/v/f/c/mendoza/d/sob. has arm and shoulder pain Medications: Reviewed: Yes Medication Review Details: Current Medications Acetaminophen (Tylenol) 650 mg PO Q6H PRN PRN Reason: MILD PAIN OR INCREASE TEMP Allopurinol (Zyloprim) 300 mg PO DAILY [facility] Last Admin: 12/21/19 09:05 Dose: 300 mg Documented by: Aspirin (Aspirin Chewable) 81 mg PO DAILY [facility] Atorvastatin Calcium (Lipitor) 40 mg PO BEDTIME [facility] Last Admin: 12/21/19 19:50 Dose: 40 mg Documented by: Cetirizine HCl (Zyrtec) 10 mg PO DAILY [facility] Last Admin: 12/21/19 09:05 Dose: 10 mg Documented by: Famotidine (Pepcid Inj) 20 mg IVP Q12H [facility] Last Admin: 12/21/19 19:51 Dose: 20 mg Documented by: Gabapentin (Neurontin) 800 mg PO TID [facility] Last Admin: 12/21/19 19:49 Dose: 800 mg Documented by: Heparin Sodium (Beef Lung) (Heparin) 5,000 unit SUBCUT Q12H [facility] Last Admin: 12/21/19 19:49 Dose: 5,000 unit Documented by: Vancomycin HCl 1,500 mg/ (Sodium Chloride) 250 mls @ 250 mls/hr IV Q24H [facility]; Protocol Last Admin: 12/21/19 17:18 Dose: 250 mls/hr Documented by: Ciprofloxacin/Dextrose (Cipro) 200 mg in 100 mls @ 100 mls/hr IV Q24H [facility]; Protocol Last Admin: 12/21/19 14:52 Dose: 100 mls/hr Documented by: Dextrose (D5w) 1,000 mls @ 30 mls/hr IV .Q24H [facility] Last Admin: 12/21/19 19:51 Dose: 30 mls/hr Documented by: Levothyroxine Sodium (Synthroid) 112 mcg PO DAILY [facility] Last Admin: 12/21/19 09:05 Dose: 112 mcg Documented by: Levothyroxine Sodium (Synthroid) 25 mcg PO DAILY [facility] Last Admin: 12/21/19 09:05 Dose: 25 mcg Documented by: Lorazepam (Ativan) 1 mg IVP Q6H PRN PRN Reason: ANXIETY Methadone HCl (Dolophine) 10 mg PO Q8H [facility] Last Admin: 12/22/19 06:01 Dose: 10 mg Documented by: Midodrine (Proamatine) 5 mg PO TID [facility] Last Admin: 12/21/19 19:51 Dose: 5 mg Documented by: Ondansetron HCl (Zofran) 4 mg IVP Q6H PRN PRN Reason: NAUSEA AND VOMITING Oxycodone HCl (Oxycontin) 10 mg PO BID PRN PRN Reason: pain Last Admin: 12/21/19 09:12 Dose: 10 mg Documented by: Vitals/I&O/Wt Last Vital Signs Temp 98.1 F 12/22/19 03:55 Pulse 75 12/22/19 03:55 Resp 18 12/22/19 06:01 BP 121/69 12/22/19 03:55 Pulse Ox 96 12/22/19 06:01 12/21/19 12/22/19 12/22/19 22:59 06:59 14:59 Intake Total 1510 / 2050 250 / 2300 Output Total 650 / 650 Balance 860 / 1400 250 / 1650 Weight last 48 hrs Weight 81.329 kg Weight 81.329 kg Physical Exam Narrative: EXAM NARRATIVE: sitting in bed, NARD, uncomfortable heent- nc/at, eomi, anicteric, neck supple- no jvp lungs crackles heart reg, no rub abd soft, nt, nd, +BS ext b/l edema, legs wrapped, ulcers per RN neuro- a,a,o x 3 Urinary Catheter Management^: Gorman: Cath Placed During This Visit: yes Reason for Continuing Indwelling Catheter: Acute Urinary Retention or Obstruction Urinary Catheter Date of Insertion: 12/20/19 Urinary Catheter Time of Insertion: 02:43 Data : 12/22/19 04:42 12/22/19 04:42 Micro: Microbiology 12/20/19 06:15 Urine Culture - Preliminary Urine Catheterized 12/20/19 06:12 Blood Culture - Preliminary Blood NEGATIVE TO DATE 12/20/19 06:10 Blood Culture - Preliminary Blood NEGATIVE TO DATE A&P Additional A&P Information 69 yr old female lower extremity ulcers/ Q cellulitis 1. hyponatremia-prerenal improving - na stable -give ns ivf and lasix and monitro 2. FANI- prerenal improving -per chart baseline cr is 1.3 mg/dl- she is better than baseline at this time -monitor chemistries -monitor vanco levels 3/ MS improving 4. rhabdomyolysis - improving 5. hypothyroidism- tsh 11.8- on levothyroxine 6. hyperkalmeia improved -monitor ck w/ ivf and lasix 7. anemia per pmd 8. met acidosis from infection and fani- improving 9. ulcers- infection- keep vanco trough under 19 Attestations Medical Necessity Statement*: hyponatremia, infection Time Spent in Patient Care: 16 - 35 minutes Coding Level of Care Code Acute Ropeman for Sam Schmidt
[2019-12-22 08:11] LABS: Vancomycin Trough 22.8 ug/mL (10-15)
[2019-12-22] MEDS: sodium chloride 0.9% 1,000 ML 75 ML IV ×2 (08:28→21:27)
[2019-12-22] MEDS: FUROsemide 10 mg/mL SDV 2mL 20 MG IVP (08:48)
[2019-12-22] MEDS: famotidine 20 mg/2 mL INJ IVP ×2 (08:49→21:15)
[2019-12-22] MEDS: levothyroxine 25 mcg Tablet PO (09:19)
[2019-12-22] MEDS: heparin 5,000 unit/mL INJ 1 mL 5000 UNIT SUBCUT ×2 (09:19→21:27)
[2019-12-22] MEDS: midodrine 5 mg TABLET PO ×3 (09:19→21:27)
[2019-12-22] MEDS: levothyroxine 112 mcg Tablet PO (09:20)
[2019-12-22] MEDS: gabapentin 400 mg Capsule 800 MG PO ×3 (09:20→21:26)
[2019-12-22] MEDS: cetirizine 10 mg Tablet PO (09:20)
[2019-12-22] MEDS: allopurinol 300 mg Tablet PO (09:21)
[2019-12-22] MEDS: aspirin 81 mg Chew Tablet PO (09:21)
[2019-12-22] MEDS: oxyCODONE 10 mg ER (12 HR) Tablet PO ×2 (09:21→21:41)
[2019-12-22 10:13] LABS: Blood Urea Nitrogen 28 mg/dL (8-23); Calcium 8.4 mg/dL (8.5-10.5); Carbon Dioxide 18 mmol/L (22-29); Chloride 96 mmol/L (98-107); Glomerular Filtration Rate 62.1 mL/min (90-130); Glucose 105 mg/dL (65-115); Osmolality Calculated 257 mOsm/kg (285-295); Sodium 125 mmol/L (136-145); T3 Free 1.5 PG/ML (2.0-4.4)
[2019-12-22] MEDS: cefTRIAXone 1,000 MG in sodium chloride 0.9% (plus) 50 ML 100 MG IV (10:21)
--- NOTE | 2019-12-22 11:07 | PC.PHAR ---
PHARMACY TO DOSE VANCOMYCIN, TROUGH DRAWN THIS MORNING, VALUE 22.8 DOES NOT LOOK LIKE A TRUE TROUGH. TRUE TROUGH ENTERED FOR 3 PM 12/21. ORDER DC'D. TALKED TO PROVIDER TO MAKE SURE THIS DID NOT PLAY A ROLE IN DC OF PRODUCT. IT DID NOT.
[2019-12-22] MEDS: ciprofloxacin 200 MG/100 ML PREMIX 100 MG IV (14:33)
[2019-12-22 15:13] LABS: Osmolality Serum 285 mOsm/kg (278-305)
[2019-12-22] MEDS: sodium chloride 1 gm Tablet PO (16:46)
[2019-12-22 16:53] LABS: Osmolality Urine 471
--- NOTE | 2019-12-22 18:25 | P.PN_ITS ---
Subjective Subjective: Interval history: Patient lying comfortably in bed on examination. Denies of any nausea, vomiting, headache. Still has bilateral lymphedema wraps. On removing the wrap on the left side patient has chronic venous stasis ulcers which as per the physical therapy nurse who is also her home health nurse the wounds are becoming better. Vital signs noted. No acute events overnight. Vitals/I&O/Wt Last Vital Signs Temp 98.3 F 12/22/19 16:00 Pulse 65 12/22/19 16:00 Resp 18 12/22/19 16:00 BP 104/59 12/22/19 16:00 Pulse Ox 96 12/22/19 16:00 12/22/19 12/22/19 12/22/19 06:59 14:59 22:59 Intake Total 250 / 2400 460 / 460 Output Total 700 / 700 Balance 250 / 1750 -240 / -240 Weight last 48 hrs Weight 81.329 kg Weight 81.329 kg Physical Exam Const: COMMON NORMALS: no acute distress, patient oriented x3 and alert GENERAL APPEARANCE: cooperative, comfortable and frail appearing NUTRITIONAL APPEARANCE: overweight ORIENTATION/CONSCIOUSNESS: Yes awake HENMT: COMMON NORMALS: normocephalic, atraumatic, hearing grossly normal bilaterally and oropharynx normal HEAD & SCALP: normocephalic and atraumatic Eye: COMMON NORMALS: Equal, round and reactive pupils present, EOMs intact bilaterally and conjunctivae normal CONJUNCTIVA: Yes conjunctivae normal PUPIL: Yes Equal, round and reactive pupils present Neck/C-Spine: COMMON NORMALS: full ROM and no JVD GENERAL: Yes normal visual inspection and Yes trachea midline Resp: COMMON NORMALS: normal respiratory effort, No retractions, No use of accessory muscles and clear to auscultation bilaterally EFFORT & INSPECTION: Yes able to speak in complete sentences, Yes symmetric chest movement and No tachypneic AUSCULTATION: clear to auscultation bilaterally OTHER: -on RA Cardio: COMMON NORMALS: no JVD, regular rate, regular rhythm, S1 normal heart sound present, S2 normal heart sound present and No murmurs present (Cardio) RATE: regular rate RHYTHM: regular rhythm HEART SOUNDS: S1 normal heart sound present and S2 normal heart sound present GI: COMMON NORMALS: Normal to inspection, nondistended, normoactive bowel sounds present, Soft to palpation and non-tender INSPECTION: Yes central obesity PALPATION: Yes Soft to palpation Extremity: COMMON NORMALS: normal to inspection, full ROM, no joint enlargement, no clubbing, cyanosis or edema and no pedal edema NARRATIVE EXTREMITY EXAM: -bilateral foot drop -lymphedema wraps on bilateral LEs OTHER: Lower extremities are wrapped in compression dressings. Left lower extremity shorter and everted Healed scars on right shoulder after prior surgery. 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 She does report some numbness of the right arm which has been new since last week. Neuro: COMMON NORMALS: patient oriented x3, moves all extremities, no focal motor deficits and no sensory deficits noted SENSORIUM/ORIENTATION: Yes alert and Yes somnolent GAIT: Yes Other gait observations present (WC-bound) OTHER: -Noted upper extremity tremor Psych: COMMON NORMALS: mental status grossly normal, Normal thought process present, cooperative, normal affect and speech normal SPEECH: Yes normal speech THOUGHT PROCESS: Normal thought process present Skin: COMMON NORMALS: no rashes or lesions noted, no jaundice, no petechiae and no mottling GENERAL SKIN EXAM: no rashes or lesions noted OTHER: Bilateral chronic venous stasis dermatitis with currently more erythema below the knee on the right side, and below mid cole on the left side, with multiple venous stasis ulcerations on shins, ankles, feet bilaterally. Serous appearing drainage without foul smell, no mottling, no cyanosis, no purulent discharge. Urinary Catheter Management^: Gorman: Cath Placed During This Visit: yes Reason for Continuing Indwelling Catheter: Acute Urinary Retention or Obstruction Urinary Catheter Date of Insertion: 12/20/19 Urinary Catheter Time of Insertion: 02:43 Data : 12/22/19 04:42 12/22/19 07:20 Micro: Microbiology 12/20/19 06:15 Urine Culture - Final Urine Catheterized A&P Assessment and plan (1) Hyponatremia: Status: Acute (2) Hyperkalemia: This is resolved with treatment. Currently normal. Status: Acute (3) Acute kidney injury: Status: Acute (4) Rhabdomyolysis: Improving. Continue gentle IV hydration. Recheck in the morning. Status: Acute Qualifiers: Rhabdomyolysis type: non-traumatic Qualified Code(s): M62.82 - Rhabdomyolysis (5) Neuropathy: -Hold gabapentin for now given acute renal injury Status: Chronic Additional A&P Information Cellulitis: Patient has remained hemodynamically stable and afebrile. Has received vancomycin for 3 days. Change vancomycin to ceftriaxone. Stop ciprofloxacin. No signs of sepsis. Superimposed on chronic venous stasis dermatitis bilaterally, with multiple venous stasis ulcers. She gets good compression dressings done for her by home health. She does have significant erythema bilaterally, and reports chronic erythema, but does agree that currently they look more red than usually. Continue doing daily lymphedema wraps and dressing with Hydrofera Blue. Hyponatremia: Sodium improving. 126 today. Baseline around 136. Nephrology consultation appreciated. Continue with normal saline as per nephrology recommendations. Start patient on oral salt tablets 1 g twice daily. FANI: Creatinine back to baseline. Most likely because of dehydration. Nephrology recommendations appreciated. Medical reconciliation done for nephrotoxic drugs. Will DC Gorman tomorrow. CT abdomen/renal ultrasound results appreciated. Troponin abnormality: No chest pain. EKG changes likely repolarization. Troponin 65-65-58. She is having no chest pain. She does report history of OK may be a year ago. Suspect this is likely demand ischemia. Appreciate cardiology assessment. Echocardiogram?shows an EF of 75% with grade 1 diastolic dysfunction with no regional wall motion abnormality, mild AI, moderately calcified aortic valve. Acute encephalopathy: Now resolved. She is encephalopathic secondary to metabolic changes. Hyponatremia. Acute kidney injury. Hypothyroidism. Chronic venous stasis: With chronic venous dermatitis, with chronic venous stasis multiple ulcers bilateral lower extremities. Daughter reports that she was offered bilateral AKA amputation, and was considering to do that but did back out to the last minute. At this time will continue compression dressings. Continue follow-up with Dr. Jacobo. -Hypothyroidism; increased levothyroxine dose to 137 -Chronic pain, on chronic narcotics; hold narcotics except for methadone to avoid withdrawal. Multilevel DJD noted on CT -lipase elevation (182); noted mild pancreas enlargement on CT. still no abdominal pain. She is eating. Perhaps minimal pancreatitis. GB us -status post cholecystectomy, CBD could not be visualized. On CT no reports of abnormal CBD. Recheck. 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 Possible dislocation versus neuropathic joint of the left hip: She is nonambulatory at baseline. Thus get herself in and out of the wheelchair and to the commode at home with assistive devices. Right arm numbness: Reports since last week has had numbness of the right arm. She was on a somnolent, confused earlier, so this appears to be the first time she is reporting it. Says that it has not improved significantly. Says that she has been having pain in the right side of her neck as well with cracking and popping sounds when she is moving her neck. Says the power is the same in the right upper and lower extremity. There is no facial droop. There is no sensory neglect. Otherwise power is the same as usual for her bilaterally. Sensation are unchanged on lower extremities. Visual conner are full to confrontation. FNF is normal. I discussed with her possible etiologies. Cannot exclude that this may not have been a stroke, however, with lack of other focal abnormalities, and with localized pain in the right neck, with other associated symptoms this appears to be more secondary to possible radiculopathy secondary to DJD. Discussed tomorrow potentially could assess with MRI brain to exclude CVA. Her above medical conditions discussed with her daughter in detail who is agreeable with assessment and plan. -renal diet as tolerated -DVT ppx with heparin Attestations Medical Necessity Statement*: Hyponatremia, chronic venous stasis, cellulitis, FANI resolving Time Spent in Patient Care: Greater than 35 minutes (>than 50% of time spent in counselling and/or direct pt care on unit) . Coding Level of Care Code Acute [facility] Worker for Sam Schmidt Diagnoses Hyponatremia E87.1 Hyperkalemia E87.5 Acute kidney injury N17.9 Rhabdomyolysis M62.82 Rhabdomyolysis type: non-traumatic Neuropathy G62.9
--- NOTE | 2019-12-22 20:50 | PM.PN ---
Subjective Subjective: Interval history: Says improving. Mentation is good she has been moved out of the unit. Medications: Reviewed: Yes Medication Review Details: Current Medications Acetaminophen (Tylenol) 650 mg PO Q6H PRN PRN Reason: MILD PAIN OR INCREASE TEMP Allopurinol (Zyloprim) 300 mg PO DAILY [facility] Last Admin: 12/21/19 09:05 Dose: 300 mg Documented by: Aspirin (Aspirin Chewable) 81 mg PO DAILY [facility] Atorvastatin Calcium (Lipitor) 40 mg PO BEDTIME [facility] Last Admin: 12/21/19 19:50 Dose: 40 mg Documented by: Cetirizine HCl (Zyrtec) 10 mg PO DAILY [facility] Last Admin: 12/21/19 09:05 Dose: 10 mg Documented by: Famotidine (Pepcid Inj) 20 mg IVP Q12H [facility] Last Admin: 12/21/19 19:51 Dose: 20 mg Documented by: Gabapentin (Neurontin) 800 mg PO TID [facility] Last Admin: 12/21/19 19:49 Dose: 800 mg Documented by: Heparin Sodium (Beef Lung) (Heparin) 5,000 unit SUBCUT Q12H [facility] Last Admin: 12/21/19 19:49 Dose: 5,000 unit Documented by: Vancomycin HCl 1,500 mg/ (Sodium Chloride) 250 mls @ 250 mls/hr IV Q24H [facility]; Protocol Last Admin: 12/21/19 17:18 Dose: 250 mls/hr Documented by: Ciprofloxacin/Dextrose (Cipro) 200 mg in 100 mls @ 100 mls/hr IV Q24H [facility]; Protocol Last Admin: 12/21/19 14:52 Dose: 100 mls/hr Documented by: Dextrose (D5w) 1,000 mls @ 30 mls/hr IV .Q24H [facility] Last Admin: 12/21/19 19:51 Dose: 30 mls/hr Documented by: Levothyroxine Sodium (Synthroid) 112 mcg PO DAILY [facility] Last Admin: 12/21/19 09:05 Dose: 112 mcg Documented by: Levothyroxine Sodium (Synthroid) 25 mcg PO DAILY [facility] Last Admin: 12/21/19 09:05 Dose: 25 mcg Documented by: Lorazepam (Ativan) 1 mg IVP Q6H PRN PRN Reason: ANXIETY Methadone HCl (Dolophine) 10 mg PO Q8H [facility] Last Admin: 12/22/19 06:01 Dose: 10 mg Documented by: Midodrine (Proamatine) 5 mg PO TID [facility] Last Admin: 12/21/19 19:51 Dose: 5 mg Documented by: Ondansetron HCl (Zofran) 4 mg IVP Q6H PRN PRN Reason: NAUSEA AND VOMITING Oxycodone HCl (Oxycontin) 10 mg PO BID PRN PRN Reason: pain Last Admin: 12/21/19 09:12 Dose: 10 mg Documented by: Vitals/I&O/Wt Last Vital Signs Temp 97.8 F 12/22/19 19:45 Pulse 70 12/22/19 19:45 Resp 18 12/22/19 19:45 BP 107/56 12/22/19 19:45 Pulse Ox 96 12/22/19 19:45 12/22/19 12/22/19 12/22/19 06:59 14:59 22:59 Intake Total 250 / 2400 460 / 460 240 / 700 Output Total 700 / 700 500 / 1200 Balance 250 / 1750 -240 / -240 -260 / -500 Weight last 48 hrs Weight 179 lb 4.8 oz Weight 179 lb 4.8 oz Physical Exam Narrative: EXAM NARRATIVE: GENERAL: Patient is alert, awake and oriented x3. NECK: No jugular vein distension. HEENT: No cyanosis. No icterus. No pallor. HEART: Regular S1 and S2. No murmur, rub or gallop. LUNGS: Clear to auscultate bilaterally. ABDOMEN: Soft, nontender and nondistended. Positive bowel sounds. No guarding, rebound or tenderness. CENTRAL NERVOUS SYSTEM: Right arm weakness. EXTREMITIES: Lower extremities with 1+ edema bilaterally. Bilateral venous ulcer with necrotic base and cellulits. Today she is wearing stockings Urinary Catheter Management^: Gorman: Cath Placed During This Visit: yes Reason for Continuing Indwelling Catheter: Acute Urinary Retention or Obstruction Urinary Catheter Date of Insertion: 12/20/19 Urinary Catheter Time of Insertion: 02:43 Data : 12/22/19 04:42 12/22/19 07:20 Micro: Microbiology 12/20/19 06:15 Urine Culture - Final Urine Catheterized A&P Assessment and plan (1) High level of cardiac marker: Most likely type II. Continue to manage conservatively Status: Acute (2) Acute kidney injury: Improved. Status: Acute (3) Acute hyponatremia: Improving and stable Status: Acute (4) Weakness: As per medicine Status: Acute Attestations Medical Necessity Statement*: Patient require continuation hospitalization for above defined care. Coding Level of Care Code Established Pt Acute Vessel Scrapper Helper for Chg Fwd Patient Type Established History Expanded Problem Focused Exam Expanded Problem Focused Medical Decision Making Moderate Complexity Diagnoses High level of cardiac marker R74.8 Acute kidney injury N17.9 Acute hyponatremia E87.1 Weakness R53.1
[2019-12-22] MEDS: atorvastatin 40 mg Tablet PO (21:27)
[2019-12-23] VITALS (11 sets, daily range): BP systolic 108–124; BP diastolic 45–70; PULSE 60–99; RESP 16–19; TEMP 36.4–38.1; O2SAT 95–98
[2019-12-23] MEDS: methadone 10 mg Tablet PO ×3 (05:15→22:11)
[2019-12-23 05:54] LABS: Alanine Aminotransferase 45 U/L (0-33); Albumin Level 2.8 g/dL (3.5-5.2); Alkaline Phosphatase 296 IU/L (35-105); Anion Gap 13.3 (5-19); Aspartate Amino Transferase 51 U/L (0-32); Blood Urea Nitrogen 22 mg/dL (8-23); Calcium 8.7 mg/dL (8.5-10.5); Carbon Dioxide 21 mmol/L (22-29); Chloride 102 mmol/L (98-107); Globulin 2.9 g/dL (1.3-4.6); Glomerular Filtration Rate 62.1 mL/min (90-130); Glucose 92 mg/dL (65-115); Magnesium 1.9 mg/dL (1.7-2.3); Osmolality Calculated 270 mOsm/kg (285-295); Phosphorus 2.5 mg/dL (2.5-4.5); Potassium 4.3 mmol/L (3.5-5.1); Sodium 132 mmol/L (136-145); Total Bilirubin 0.2 mg/dL (0.15-1.2); Total Protein 5.7 g/dL (6.6-8.7)
--- NOTE | 2019-12-23 06:11 | PC.NURSE ---
SHIFT SUMMARY Has rested well without c/o. Lymphedema wraps to BLE. Says she thinks edema is decreasing. 400ml urine output per Gorman. Remains on 1400ml fluid restriction. MRSA nasal swab done this shift
[2019-12-23 06:35] LABS: Cortisol Random 7.26 ug/mL (2.47-19.5)
--- NOTE | 2019-12-23 06:40 | P.PN_ITS ---
Subjective Subjective: Interval history: feeling better. dec edema. still anxious and shoulder pains Medications: Reviewed: Yes Medication Review Details: Current Medications Acetaminophen (Tylenol) 650 mg PO Q6H PRN PRN Reason: MILD PAIN OR INCREASE TEMP Allopurinol (Zyloprim) 300 mg PO DAILY [facility] Last Admin: 12/22/19 09:21 Dose: 300 mg Documented by: Aspirin (Aspirin Chewable) 81 mg PO DAILY [facility] Last Admin: 12/22/19 09:21 Dose: 81 mg Documented by: Atorvastatin Calcium (Lipitor) 40 mg PO BEDTIME [facility] Last Admin: 12/22/19 21:27 Dose: 40 mg Documented by: Cetirizine HCl (Zyrtec) 10 mg PO DAILY [facility] Last Admin: 12/22/19 09:20 Dose: 10 mg Documented by: Famotidine (Pepcid Inj) 20 mg IVP Q12H [facility] Last Admin: 12/22/19 21:15 Dose: 20 mg Documented by: Gabapentin (Neurontin) 800 mg PO TID [facility] Last Admin: 12/22/19 21:26 Dose: 800 mg Documented by: Heparin Sodium (Beef Lung) (Heparin) 5,000 unit SUBCUT Q12H [facility] Last Admin: 12/22/19 21:27 Dose: 5,000 unit Documented by: Sodium Chloride (Sodium Chloride 0.9%) 1,000 mls @ 75 mls/hr IV .[id number] [facility] Last Admin: 12/22/19 21:27 Dose: 75 mls/hr Documented by: Ceftriaxone Sodium 1,000 mg/ (Sodium Chloride) 50 mls @ 100 mls/hr IV Q24H [facility]; Protocol Last Admin: 12/22/19 10:21 Dose: 100 mls/hr Documented by: Levothyroxine Sodium (Synthroid) 112 mcg PO DAILY [facility] Last Admin: 12/22/19 09:20 Dose: 112 mcg Documented by: Levothyroxine Sodium (Synthroid) 25 mcg PO DAILY [facility] Last Admin: 12/22/19 09:19 Dose: 25 mcg Documented by: Levothyroxine Sodium (Synthroid) 100 mcg IVP DAILY [facility] Lorazepam (Ativan) 1 mg IVP Q6H PRN PRN Reason: ANXIETY Methadone HCl (Dolophine) 10 mg PO Q8H [facility] Last Admin: 12/23/19 05:15 Dose: 10 mg Documented by: Midodrine (Proamatine) 5 mg PO TID [facility] Last Admin: 12/22/19 21:27 Dose: 5 mg Documented by: Ondansetron HCl (Zofran) 4 mg IVP Q6H PRN PRN Reason: NAUSEA AND VOMITING Oxycodone HCl (Oxycontin) 10 mg PO BID PRN PRN Reason: pain Last Admin: 12/22/19 21:41 Dose: 10 mg Documented by: Sodium Chloride (Salt Tab) 1 gm PO BID [facility] Last Admin: 12/22/19 16:46 Dose: 1 gm Documented by: Vitals/I&O/Wt Last Vital Signs Temp 97.5 F L 12/23/19 04:00 Pulse 85 12/23/19 04:00 Resp 16 12/23/19 05:15 BP 108/65 12/23/19 04:00 Pulse Ox 96 12/23/19 05:15 12/22/19 12/22/19 12/23/19 14:59 22:59 06:59 Intake Total 460 / 460 1273.75 / 1733.75 240 / 1973.75 Output Total 700 / 700 500 / 1200 400 / 1600 Balance -240 / -240 773.75 / 533.75 -160 / 373.75 Weight last 48 hrs Weight 81.329 kg Physical Exam Narrative: EXAM NARRATIVE: sitting in bed, NARD, uncomfortable heent- nc/at, eomi, anicteric, neck supple- no jvp lungs improved air movement heart reg, no rub abd soft, nt, nd, +BS ext b/l edema, legs wrapped, ulcers per RN neuro- a,a,o x 3 Urinary Catheter Management^: Gorman: Cath Placed During This Visit: yes Reason for Continuing Indwelling Catheter: Acute Urinary Retention or Obstruction Urinary Catheter Date of Insertion: 12/20/19 Urinary Catheter Time of Insertion: 02:43 Data : 12/22/19 04:42 12/23/19 04:23 Micro: Microbiology 12/20/19 06:15 Urine Culture - Final Urine Catheterized A&P Additional A&P Information 69 yr old female lower extremity ulcers/ Q cellulitis 1. hyponatremia-prerenal improving - na up tp 132 --will hold ivf 2. FANI- prerenal improving -per chart baseline cr is 1.3 mg/dl- she is better than baseline at this time -monitor chemistries -monitor vanco levels 3/ MS improving 4. rhabdomyolysis - improving 5. hypothyroidism- tsh 11.8- on levothyroxine 6. hyperkalmeia improved -monitor ck 7. anemia per pmd 8. met acidosis from infection and fani- improved 9. ulcers- infection- keep vanco trough under 19 will see PRN Attestations Medical Necessity Statement*: per hospitlist. improved fani, electrolyte bnormalities Time Spent in Patient Care: 16 - 35 minutes Coding Level of Care Code Acute Certified Marine Mechanic for Sam Schmidt
--- NOTE | 2019-12-23 08:44 | P.PN_ITS ---
Subjective Subjective: Interval history: No events overnight. Patient states she is feeling a lot better. Denies of any nausea, vomiting, headache. Patient is a lot more awake today. Patient did have some bleeding from the left leg during dressing change today. Vitals/I&O/Wt Last Vital Signs Temp 97.6 F 12/23/19 07:42 Pulse 72 12/23/19 07:42 Resp 18 12/23/19 07:42 BP 120/60 12/23/19 07:42 Pulse Ox 95 12/23/19 07:42 12/22/19 12/23/19 12/23/19 22:59 06:59 14:59 Intake Total 1273.75 / 1733.75 240 / 1973.75 240 / 240 Output Total 500 / 1200 400 / 1600 Balance 773.75 / 533.75 -160 / 373.75 240 / 240 Weight last 48 hrs Weight 81.329 kg Physical Exam 2 Const: COMMON NORMALS: no acute distress, patient oriented x3 and alert GENERAL APPEARANCE: cooperative, comfortable and frail appearing NUTRITIONAL APPEARANCE: overweight ORIENTATION/CONSCIOUSNESS: Yes awake HENMT: COMMON NORMALS: normocephalic, atraumatic, hearing grossly normal bilaterally and oropharynx normal HEAD & SCALP: normocephalic and atraumatic Eye: COMMON NORMALS: Equal, round and reactive pupils present, EOMs intact bilaterally and conjunctivae normal CONJUNCTIVA: Yes conjunctivae normal PUPIL: Yes Equal, round and reactive pupils present Neck/C-Spine: COMMON NORMALS: full ROM and no JVD GENERAL: Yes normal visual inspection and Yes trachea midline Resp: COMMON NORMALS: normal respiratory effort, No retractions, No use of accessory muscles and clear to auscultation bilaterally EFFORT & INSPECTION: Yes able to speak in complete sentences, Yes symmetric chest movement and No tachypneic AUSCULTATION: clear to auscultation bilaterally OTHER: -on RA Cardio: COMMON NORMALS: no JVD, regular rate, regular rhythm, S1 normal heart sound present, S2 normal heart sound present and No murmurs present (Cardio) RATE: regular rate RHYTHM: regular rhythm HEART SOUNDS: S1 normal heart sound present and S2 normal heart sound present GI: COMMON NORMALS: Normal to inspection, nondistended, normoactive bowel sounds present, Soft to palpation and non-tender INSPECTION: Yes central obesity PALPATION: Yes Soft to palpation Extremity: COMMON NORMALS: normal to inspection, full ROM, no joint enlargement, no clubbing, cyanosis or edema and no pedal edema NARRATIVE EXTREMITY EXAM: -bilateral foot drop -lymphedema wraps on bilateral LEs OTHER: Lower extremities are wrapped in compression dressings. Left lower extremity shorter and everted Healed scars on right shoulder after prior surgery. 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 She does report some numbness of the right arm which has been new since last week. Neuro: COMMON NORMALS: patient oriented x3, moves all extremities, no focal motor deficits and no sensory deficits noted SENSORIUM/ORIENTATION: Yes alert and Yes somnolent GAIT: Yes Other gait observations present (WC-bound) OTHER: -Noted upper extremity tremor Psych: COMMON NORMALS: mental status grossly normal, Normal thought process present, cooperative, normal affect and speech normal SPEECH: Yes normal speech THOUGHT PROCESS: Normal thought process present Skin: COMMON NORMALS: no rashes or lesions noted, no jaundice, no petechiae and no mottling GENERAL SKIN EXAM: no rashes or lesions noted OTHER: Bila teral chronic venous stasis dermatitis with currently more erythema below the knee on the right side, and below mid cole on the left side, with multiple venous stasis ulcerations on shins, ankles, feet bilaterally. Serous appearing drainage without foul smell, no mottling, no cyanosis, no purulent discharge. Urinary Catheter Management^: Gorman: Cath Placed During This Visit: yes Reason for Continuing Indwelling Catheter: Accurate Measurement of Urinary Output in Critically Ill Patients Urinary Catheter Date of Insertion: 12/20/19 Urinary Catheter Time of Insertion: 02:43 Data : 12/22/19 04:42 12/23/19 04:23 Micro: Microbiology 12/20/19 06:15 Urine Culture - Final Urine Catheterized A&P Assessment and plan (1) Hyponatremia: Status: Acute (2) Hypothyroidism: Status: Acute (3) Venous stasis dermatitis of both lower extremities: Status: Acute (4) Stasis ulcer of left lower extremity: Status: Acute (5) Rhabdomyolysis: Improving. Continue gentle IV hydration. Recheck in the morning. Status: Acute Qualifiers: Rhabdomyolysis type: non-traumatic Qualified Code(s): M62.82 - Rhabdomyolysis (6) Neuropathy: -Hold gabapentin for now given acute renal injury Status: Chronic (7) Acute kidney injury: Status: Acute (8) Hyperkalemia: This is resolved with treatment. Currently normal. Status: Acute Additional A&P Information Cellulitis: Patient has remained hemodynamically stable and afebrile. Has received vancomycin for 3 days. Continue with ceftriaxone. Day 2 today. Patient to complete 5-day course of antibiotics cellulitis. On examination patient does not seem to have any active cellulitis and more so has residual dermatitis because of chronic venous stasis. Last dose of antibiotics today. Continue doing daily lymphedema wraps and dressing with Hydrofera Blue. For left leg will start on Maxorb as well. Hyponatremia: 132 today. Baseline around 136. Nephrology consultation appreciated. Discontinue IV fluids. Continue with salt tabs 1 g twice daily. Continue monitoring BMP daily. FANI: Creatinine back to baseline. Most likely because of dehydration. Nephrology recommendations appreciated. Medical reconciliation done for nephrotoxic drugs. SETH Gorman. CT abdomen/renal ultrasound results appreciated. Hypothyroidism: TSH elevated. T3-T4 checked yesterday was in the lower side. Early in the admission patient's levothyroxine was increased to 137 mcg from 125 mcg. This could be contributing to hyponatremia. Cortisol levels within normal limits. Start patient on levothyroxine IV 100 mcg daily for now. Monitor TSH, free T3, free T4 daily. Troponin abnormality: No chest pain. EKG changes likely repolarization. Troponin 65-65-58. She is having no chest pain. She does report history of [place] may be a year ago. Suspect this is likely demand ischemia. Appreciate c ardiology assessment. Echocardiogram?shows an EF of 75% with grade 1 diastolic dysfunction with no r egional wall motion abnormality, mild AI, moderately calcified aortic valve. Acute encephalopathy: Now resolved. She is encephalopathic secondary to metabolic changes. Hyponatremia. Acute kidney injury. Hypothyroidism. Chronic venous stasis: With chronic venous dermatitis, with chronic venous stasis multiple ulcers bilateral lower extremities. Daughter reports that she was offered bilateral AKA amputation, and was considering to do that but did back out to the last minute. At this time will continue compression dressings. Continue follow-up with Dr. Jacobo. -Hypothyroidism; increased levothyroxine dose to 137 -Chronic pain, on chronic narcotics; hold narcotics except for methadone to avoid withdrawal. Multilevel DJD noted on CT -lipase elevation (182); noted mild pancreas enlargement on CT. still no abdominal pain. She is eating. Perhaps minimal pancreatitis. GB us -status post cholecystectomy, CBD could not be visualized. On CT no reports of abnormal CBD. Recheck. 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 Possible dislocation versus neuropathic joint of the left hip: She is nonambulatory at baseline. Thus get herself in and out of the wheelchair and to the commode at home with assistive devices. Right arm numbness: Reports since last week has had numbness of the right arm. She was on a somnolent, confused earlier, so this appears to be the first time she is reporting it. Says that it has not improved significantly. Says that she has been having pain in the right side of her neck as well with cracking and popping sounds when she is moving her neck. Says the power is the same in the right upper and lower extremity. There is no facial droop. There is no sensory neglect. Otherwise power is the same as usual for her bilaterally. Sensation are unchanged on lower extremities. Visual conner are full to confrontation. FNF is normal. I discussed with her possible etiologies. Cannot exclude that this may not have been a stroke, however, with lack of other focal abnormalities, and with localized pain in the right neck, with other associated symptoms this appears to be more secondary to possible radiculopathy secondary to DJD. Discussed tomorrow potentially could assess with MRI brain to exclude CVA. Her above medical conditions discussed with her daughter in detail who is agree able with assessment and plan. -renal diet as tolerated -DVT ppx with heparin. Discharge planning: Earlier in the admission it was discussed with the patient regarding possible discharge to SNF at that time patient had denied and wanted to go home with her continued home health. Today she states she feels she is deconditioned and would not be able to take care of herself and would like to go to SNF to regain some strength before being discharged home. We will consult care coordination. We will also consult physical therapy. Attestations Medical Necessity Statement*: Hypothyroidism, resolving hyponatremia. Safe discharge planning. Time Spent in Patient Care: Greater than 35 minutes (>than 50% of time spent in counselling and/or direct pt care on unit) . Coding Level of Care Code Acute Therapeutic Specialist for Chg Fwd Exam Comprehensive Diagnoses Hyponatremia E87.1 Hypothyroidism E03.9 Venous stasis dermatitis of both lower extremities I87.2 Stasis ulcer of left lower extremity I83.029; L97.929 Rhabdomyolysis M62.82 Rhabdomyolysis type: non-traumatic Neuropathy G62.9 Acute kidney injury N17.9 Hyperkalemia E87.5
[2019-12-23] MEDS: gabapentin 400 mg Capsule 800 MG PO ×3 (08:48→20:46)
[2019-12-23] MEDS: midodrine 5 mg TABLET PO ×3 (08:48→20:46)
[2019-12-23] MEDS: heparin 5,000 unit/mL INJ 1 mL 5000 UNIT SUBCUT ×2 (08:48→20:46)
[2019-12-23] MEDS: allopurinol 300 mg Tablet PO (08:48)
[2019-12-23] MEDS: sodium chloride 1 gm Tablet PO ×2 (08:48→17:12)
[2019-12-23] MEDS: cetirizine 10 mg Tablet PO (08:48)
[2019-12-23] MEDS: aspirin 81 mg Chew Tablet PO (08:48)
[2019-12-23] MEDS: famotidine 20 mg/2 mL INJ IVP (08:48)
[2019-12-23] MEDS: levothyroxine 100 mcg SDV IVP (09:21)
--- NOTE | 2019-12-23 09:25 | PC.SOCIAL ---
Pg 2 IMM Explained to pt Pg 2 IMM. Provided pt a copy. No questions voiced. Signed, dated, & timed a copy & placed in chart.
[2019-12-23] MEDS: cefTRIAXone 1,000 MG in sodium chloride 0.9% (plus) 50 ML 100 MG IV (10:01)
--- NOTE | 2019-12-23 13:44 | P.PN_ITS ---
Subjective Subjective: Interval history: Denies any complain, more alert awake and oriented Medications: Reviewed: Yes Medication Review Details: Current Medications Acetaminophen (Tylenol) 650 mg PO Q6H PRN PRN Reason: MILD PAIN OR INCREASE TEMP Allopurinol (Zyloprim) 300 mg PO DAILY [facility] Last Admin: 12/22/19 09:21 Dose: 300 mg Documented by: Aspirin (Aspirin Chewable) 81 mg PO DAILY [facility] Last Admin: 12/22/19 09:21 Dose: 81 mg Documented by: Atorvastatin Calcium (Lipitor) 40 mg PO BEDTIME [facility] Last Admin: 12/22/19 21:27 Dose: 40 mg Documented by: Cetirizine HCl (Zyrtec) 10 mg PO DAILY [facility] Last Admin: 12/22/19 09:20 Dose: 10 mg Documented by: Famotidine (Pepcid Inj) 20 mg IVP Q12H [facility] Last Admin: 12/22/19 21:15 Dose: 20 mg Documented by: Gabapentin (Neurontin) 800 mg PO TID [facility] Last Admin: 12/22/19 21:26 Dose: 800 mg Documented by: Heparin Sodium (Beef Lung) (Heparin) 5,000 unit SUBCUT Q12H [facility] Last Admin: 12/22/19 21:27 Dose: 5,000 unit Documented by: Sodium Chloride (Sodium Chloride 0.9%) 1,000 mls @ 75 mls/hr IV .[id number] [facility] Last Admin: 12/22/19 21:27 Dose: 75 mls/hr Documented by: Ceftriaxone Sodium 1,000 mg/ (Sodium Chloride) 50 mls @ 100 mls/hr IV Q24H [facility]; Protocol Last Admin: 12/22/19 10:21 Dose: 100 mls/hr Documented by: Levothyroxine Sodium (Synthroid) 112 mcg PO DAILY [facility] Last Admin: 12/22/19 09:20 Dose: 112 mcg Documented by: Levothyroxine Sodium (Synthroid) 25 mcg PO DAILY [facility] Last Admin: 12/22/19 09:19 Dose: 25 mcg Documented by: Levothyroxine Sodium (Synthroid) 100 mcg IVP DAILY [facility] Lorazepam (Ativan) 1 mg IVP Q6H PRN PRN Reason: ANXIETY Methadone HCl (Dolophine) 10 mg PO Q8H [facility] Last Admin: 12/23/19 05:15 Dose: 10 mg Documented by: Midodrine (Proamatine) 5 mg PO TID [facility] Last Admin: 12/22/19 21:27 Dose: 5 mg Documented by: Ondansetron HCl (Zofran) 4 mg IVP Q6H PRN PRN Reason: NAUSEA AND VOMITING Oxycodone HCl (Oxycontin) 10 mg PO BID PRN PRN Reason: pain Last Admin: 12/22/19 21:41 Dose: 10 mg Documented by: Sodium Chloride (Salt Tab) 1 gm PO BID [facility] Last Admin: 12/22/19 16:46 Dose: 1 gm Documented by: Vitals/I&O/Wt Last Vital Signs Temp 98.1 F 12/23/19 11:13 Pulse 60 12/23/19 11:13 Resp 17 12/23/19 13:04 BP 124/62 12/23/19 11:13 Pulse Ox 95 12/23/19 11:13 12/22/19 12/23/19 12/23/19 22:59 06:59 14:59 Intake Total 1273.75 / 1783.75 240 / 2023.75 240 / 240 Output Total 500 / 1200 400 / 1600 Balance 773.75 / 583.75 -160 / 423.75 240 / 240 Weight last 48 hrs Weight 179 lb 4.8 oz Physical Exam Narrative: EXAM NARRATIVE: GENERAL: Patient is alert, awake and oriented x3. NECK: No jugular vein distension. HEENT: No cyanosis. No icterus. No pallor. HEART: Regular S1 and S2. No murmur, rub or gallop. LUNGS: Clear to auscultate bilaterally. ABDOMEN: Soft, nontender and nondistended. Positive bowel sounds. No guarding, rebound or tenderness. CENTRAL NERVOUS SYSTEM: Right arm weakness. EXTREMITIES: Lower extremities with 1+ edema bilaterally. Bilateral venous ulcer with necrotic base and cellulits. Wearing stockings Urinary Catheter Management^: Gorman: Cath Placed During This Visit: yes, but has since been removed by the nurse Reason for Continuing Indwelling Catheter: Decision to DC Catheter Urinary Catheter Date of Insertion: 12/20/19 Urinary Catheter Time of Insertion: 02:43 Date Urinary Catheter Removed: 12/23/19 Time Urinary Catheter Discontinued: 11:32 Data : 12/22/19 04:42 12/23/19 04:23 A&P Assessment and plan (1) High level of cardiac marker: Continue conservative management. Status: Acute (2) Acute kidney injury: Improved. Status: Acute (3) Acute hyponatremia: Improved. Status: Acute (4) Weakness: As per medicine Status: Acute Attestations Medical Necessity Statement*: As per medicine Coding Level of Care Code Established Pt Acute Magistrate Judge for g Fwd Patient Type Established History Expanded Problem Focused Exam Expanded Problem Focused Medical Decision Making Moderate Complexity Diagnoses High level of cardiac marker R74.8 Acute kidney injury N17.9 Acute hyponatremia E87.1 Weakness R53.1
[2019-12-23 14:52] LABS: Osmolality Serum 273 mOsm/kg (278-305)
[2019-12-23] MEDS: oxyCODONE 10 mg ER (12 HR) Tablet PO (15:05)
[2019-12-23] MEDS: lanolin oint 7 gm 1 APPLIC TOPICAL (15:06)
--- NOTE | 2019-12-23 15:29 | PC.NURSE ---
PT consult ordered - verbal order from .
--- NOTE | 2019-12-23 15:30 | PC.NURSE ---
Dressings changed on left and right legs with OT. Hydrofera blue ready with gauze wrap and compression wrap applied to right leg. Maxorb Silver antimicrobial and coflex tlc calamine lite 2 layer compression kit applied to left left - Dr. Serrano changed dressing to left leg due to it sticking to wound. Pt tolerated well.
--- NOTE | 2019-12-23 15:42 | PC.NURSE ---
pt transferred to bedside commode with slide board. Pt was very weak and did not transfer very well. Bed changed.
[2019-12-23] MEDS: famotidine 20 mg Tablet PO (17:12)
[2019-12-23] MEDS: atorvastatin 40 mg Tablet PO (20:46)
--- NOTE | 2019-12-23 23:43 | PC.NURSE ---
Being charted by Leon Marin LPN, actual catheter removal by Nasrin Horton RN.
[2019-12-24] VITALS (14 sets, daily range): BP systolic 95–130; BP diastolic 57–74; PULSE 79–92; RESP 16–20; TEMP 36.8–37.2; O2SAT 90–98; BMI 28.0
[2019-12-24] MEDS: methadone 10 mg Tablet PO ×2 (05:48→16:09)
[2019-12-24 06:03] LABS: Alanine Aminotransferase 45 U/L (0-33); Albumin Level 2.5 g/dL (3.5-5.2); Alkaline Phosphatase 292 IU/L (35-105); Anion Gap 14.4 (5-19); Aspartate Amino Transferase 49 U/L (0-32); Blood Urea Nitrogen 17 mg/dL (8-23); Calcium 8.8 mg/dL (8.5-10.5); Carbon Dioxide 21 mmol/L (22-29); Chloride 104 mmol/L (98-107); Free T4 Free Thyroxine 0.87 ng/dL (0.82-1.77); Globulin 2.9 g/dL (1.3-4.6); Glomerular Filtration Rate 71.1 mL/min (90-130); Glucose 82 mg/dL (65-115); Magnesium 1.8 mg/dL (1.7-2.3); Osmolality Calculated 275 mOsm/kg (285-295); Phosphorus 2.5 mg/dL (2.5-4.5); Potassium 4.4 mmol/L (3.5-5.1); Sodium 135 mmol/L (136-145); T3 Free 1.5 PG/ML (2.0-4.4); Thyroid Stimulating Hormone 8.17 uIU/mL (0.27-4.20); Total Bilirubin 0.2 mg/dL (0.15-1.2); Total Protein 5.4 g/dL (6.6-8.7)
[2019-12-24] MEDS: aspirin 81 mg Chew Tablet PO (09:12)
[2019-12-24] MEDS: gabapentin 400 mg Capsule 800 MG PO ×3 (09:12→20:45)
[2019-12-24] MEDS: heparin 5,000 unit/mL INJ 1 mL 5000 UNIT SUBCUT ×2 (09:12→20:45)
[2019-12-24] MEDS: cetirizine 10 mg Tablet PO (09:12)
[2019-12-24] MEDS: midodrine 5 mg TABLET PO ×3 (09:13→20:46)
[2019-12-24] MEDS: allopurinol 300 mg Tablet PO (09:13)
[2019-12-24] MEDS: famotidine 20 mg Tablet PO ×2 (09:24→18:00)
[2019-12-24] MEDS: sodium chloride 1 gm Tablet PO (09:24)
[2019-12-24] MEDS: cefTRIAXone 1,000 MG in sodium chloride 0.9% (plus) 50 ML 100 MG IV (09:25)
[2019-12-24] MEDS: levothyroxine 100 mcg SDV IVP (12:15)
[2019-12-24] MEDS: oxyCODONE 10 mg ER (12 HR) Tablet PO ×2 (12:49→20:51)
--- NOTE | 2019-12-24 13:41 | P.PN_ITS ---
Subjective Subjective: Interval history: No events overnight. Patient states she is feeling a lot better. Denies of any nausea, vomiting, headache. Patient is a lot more awake today. Patient states she is worried about going home as she thinks she is notably take care of herself and feeling increasingly weak since admission. Vitals/I&O/Wt Last Vital Signs Temp 98.5 F 12/24/19 10:41 Pulse 86 12/24/19 10:41 Resp 20 H 12/24/19 12:49 BP 109/63 12/24/19 12:53 Pulse Ox 93 12/24/19 10:41 12/23/19 12/24/19 12/24/19 22:59 06:59 14:59 Intake Total 120 / 530 480 / 480 Output Total 400 / 400 650 / 1050 Balance -280 / 130 -650 / -520 480 / 480 Weight last 48 hrs Weight 81.329 kg Physical Exam Const: COMMON NORMALS: no acute distress, patient oriented x3 and alert GENERAL APPEARANCE: cooperative, comfortable and frail appearing NUTRITIONAL APPEARANCE: overweight ORIENTATION/CONSCIOUSNESS: Yes awake HENMT: COMMON NORMALS: normocephalic, atraumatic, hearing grossly normal bilaterally and oropharynx normal HEAD & SCALP: normocephalic and atraumatic Eye: COMMON NORMALS: Equal, round and reactive pupils present, EOMs intact bilaterally and conjunctivae normal CONJUNCTIVA: Yes conjunctivae normal PUPIL: Yes Equal, round and reactive pupils present Neck/C-Spine: COMMON NORMALS: full ROM and no JVD GENERAL: Yes normal visual inspection and Yes trachea midline Resp: COMMON NORMALS: normal respiratory effort, No retractions, No use of accessory muscles and clear to auscultation bilaterally EFFORT & INSPECTION: Yes able to speak in complete sentences, Yes symmetric chest movement and No tachypneic AUSCULTATION: clear to auscultation bilaterally OTHER: -on RA Cardio: COMMON NORMALS: no JVD, regular rate, regular rhythm, S1 normal heart sound present, S2 normal heart sound present and No murmurs present (Cardio) RATE: regular rate RHYTHM: regular rhythm HEART SOUNDS: S1 normal heart sound present and S2 normal heart sound present GI: COMMON NORMALS: Normal to inspection, nondistended, normoactive bowel s ounds present, Soft to palpation and non-tender INSPECTION: Yes central obesity PALPATION: Yes Soft to palpation Extremity: COMMON NORMALS: normal to inspection, full ROM, no joint enlargement, no clubbing, cyanosis or edema and no pedal edema NARRATIVE EXTREMITY EXAM: -bilateral foot drop -lymphedema wraps on bilateral LEs OTHER: Lower extremities are wrapped in compression dressings. Left lower extremity shorter and everted Healed scars on right shoulder after prior surgery. 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 She does report some numbness of the right arm which has been new since last week. Neuro: COMMON NORMALS: patient oriented x3, moves all extremities, no focal motor deficits and no sensory deficits noted SENSORIUM/ORIENTATION: Yes alert and Yes somnolent GAIT: Yes Other gait observations present (WC-bound) OTHER: -Noted upper extremity tremor Psych: COMMON NORMALS: mental status grossly normal, Normal thought process present, cooperative, normal affect and speech normal SPEECH: Yes normal speech THOUGHT PROCESS: Normal thought process present Skin: COMMON NORMALS: no rashes or lesions noted, no jaundice, no petechiae and no mottling GENERAL SKIN EXAM: no rashes or lesions noted OTHER: Bilateral chronic venous stasis dermatitis with currently more erythema below the knee on the right side, and below mid cole on the left side, with multiple venous stasis ulcerations on shins, ankles, feet bilaterally. Serous appearing drainage without foul smell, no mottling, no cyanosis, no purulent discharge. Urinary Catheter Management^: Gorman: Cath Placed During This Visit: yes, but has since been removed by the nurse Reason for Continuing Indwelling Catheter: Not indwelling catheter Urinary Catheter Date of Insertion: 12/20/19 Urinary Catheter Time of Insertion: 02:43 Date Urinary Catheter Removed: 12/23/19 Time Urinary Catheter Discontinued: 11:32 Data : 12/22/19 04:42 12/24/19 04:05 Micro: Microbiology 12/23/19 05:20 MRSA Culture - Final Nose A&P Assessment and plan (1) Hyponatremia: Status: Acute (2) Hypothyroidism: Status: Acute (3) Venous stasis dermatitis of both lower extremities: Status: Acute (4) Stasis ulcer of left lower extremity: Status: Acute (5) Rhabdomyolysis: Improving. Continue gentle IV hydration. Recheck in the morning. Status: Acute Qualifiers: Rhabdomyolysis type: non-traumatic Qualified Code(s): M62.82 - Rhabdomyolysis (6) Neuropathy: -Hold gabapentin for now given acute renal injury Status: Chronic (7) Acute kidney injury: Status: Acute (8) Hyperkalemia: This is resolved with treatment. Currently normal. Status: Acute (9) Physical deconditioning: Status: Acute Additional A&P Information Cellulitis: Patient has remained hemodynamically stable and afebrile. Has received vancomycin for 3 days. Continue with ceftriaxone. Day 2 today. Today is 5 of appropriate treatment. On examination patient does not seem to have any active cellulitis and more so has residual dermatitis because of chronic venous stasis. Last dose of antibiotics today. Continue doing daily lymphedema wraps and dressing with Hydrofera Blue. For left leg will start on Maxorb as well. Hyponatremia: Resolved. Most likely combination of prerenal and severe hypothyroidism. Nephrology consultation appreciated. Discontinue IV fluids. Continue with salt tabs 1 g twice daily. Continue monitoring BMP daily. FANI: Creatinine back to baseline. Most likely because of dehydration. Nephrology recommendations appreciated. Medical reconciliation done for nephrotoxic drugs. SETH Gorman. CT abdomen/renal ultrasound results appreciated. Hypothyroidism: TSH, free T3 and T4 improving. Will give 1 more dose of IV levothyroxine today. Continue to monitor thyroid panel. Most likely will have to increase the dose of levothyroxine from 125 mcg of home dose to 175 mcg with follow-up as an outpatient with thyroid panel in a month. Cortisol levels within normal limits. Troponin abnormality: No chest pain. EKG changes likely repolarization. Troponin 65-65-58. She is having no chest pain. She does report history of VT may be a year ago. Suspect this is likely demand ischemia. Appreciate cardiology assessment. Echocardiogram?shows an EF of 75% with grade 1 diastolic dysfunction with no regional wall motion abnormality, mild AI, moderately calcified aortic valve. Acute encephalopathy: Now resolved. She is encephalopathic secondary to met abolic changes. Hyponatremia. Acute kidney injury. Hypothyroidism. Chronic venous stasis: With chronic venous dermatitis, with chronic venous stasis multiple ulcers bilateral lower extremities. Daughter reports that she was offered bilateral AKA amputation, and was considering to do that but did back out to the last minute. At this time will continue compression dressings. Continue follow-up with Dr. Jacobo. While inpatient will continue to dress with compression stockings and Maxorb. -Chronic pain, on chronic narcotics; hold narcotics except for methadone to avoid withdrawal. Multilevel DJD noted on CT -lipase elevation (182); noted mild pancreas enlargement on CT. still no abdomi nal pain. She is eating. Perhaps minimal pancreatitis. GB us -status post cholecystectomy, CBD could not be visualized. On CT no reports of abnormal CBD. Recheck. 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 Possible dislocation versus neuropathic joint of the left hip: She is nonambulatory at baseline. Thus get herself in and out of the wheelchair and to the commode at home with assistive devices. Right arm numbness: Reports since last week has had numbness of the right arm. She was on a somnolent, confused earlier, so this appears to be the first time she is reporting it. Says that it has not improved significantly. Says that she has been having pain in the right side of her neck as well with cracking and popping sounds when she is moving her neck. Says the power is the same in the right upper and lower extremity. There is no facial droop. There is no sensory neglect. Otherwise power is the same as usual for her bilaterally. Sensation are unchanged on lower extremities. Visual conner are full to confrontation. FNF is normal. I discussed with her possible etiologies. Cannot exclude that this may not have been a stroke, however, with lack of other focal abnormalities, and with localized pain in the right neck, with other associated symptoms this appears to be more secondary to possible radiculopathy secondary to DJD. Discussed tomorrow potentially could assess with MRI brain to exclude CVA. Her above medical conditions discussed with her daughter in detail who is agreeable with assessment and plan. -renal diet as tolerated -DVT ppx with heparin. Discharge planning: Patient feeling significantly weak. Physical therapy recommendations appreciated. Patient will require SNF placement because of severe deconditioning. Patient will most likely go to [place]. Attestations Medical Necessity Statement*: Resolving hyponatremia, cellulitis, severe deconditioning Time Spent in Patient Care: Greater than 35 minutes (>than 50% of time spent in counselling and/or direct pt care on unit) . Coding Level of Care Code Acute Drug Abuse Social Worker for Chg Fwd Exam Comprehensive Diagnoses Hyponatremia E87.1 Hypothyroidism E03.9 Venous stasis dermatitis of both lower extremities I87.2 Stasis ulcer of left lower extremity I83.029; L97.929 Rhabdomyolysis M62.82 Rhabdomyolysis type: non-traumatic Neuropathy G62.9 Acute kidney injury N17.9 Hyperkalemia E87.5 Physical deconditioning R53.81
--- NOTE | 2019-12-24 19:27 | P.PN_ITS ---
Subjective Subjective: Interval history: No overnight event. Stable otherwise Medications: Reviewed: Yes Medication Review Details: Current Medications Acetaminophen (Tylenol) 650 mg PO Q6H PRN PRN Reason: MILD PAIN OR INCREASE TEMP Allopurinol (Zyloprim) 300 mg PO DAILY [facility] Last Admin: 12/22/19 09:21 Dose: 300 mg Documented by: Aspirin (Aspirin Chewable) 81 mg PO DAILY [facility] Last Admin: 12/22/19 09:21 Dose: 81 mg Documented by: Atorvastatin Calcium (Lipitor) 40 mg PO BEDTIME [facility] Last Admin: 12/22/19 21:27 Dose: 40 mg Documented by: Cetirizine HCl (Zyrtec) 10 mg PO DAILY [facility] Last Admin: 12/22/19 09:20 Dose: 10 mg Documented by: Famotidine (Pepcid Inj) 20 mg IVP Q12H [facility] Last Admin: 12/22/19 21:15 Dose: 20 mg Documented by: Gabapentin (Neurontin) 800 mg PO TID [facility] Last Admin: 12/22/19 21:26 Dose: 800 mg Documented by: Heparin Sodium (Beef Lung) (Heparin) 5,000 unit SUBCUT Q12H [facility] Last Admin: 12/22/19 21:27 Dose: 5,000 unit Documented by: Sodium Chloride (Sodium Chloride 0.9%) 1,000 mls @ 75 mls/hr IV .[id number] [facility] Last Admin: 12/22/19 21:27 Dose: 75 mls/hr Documented by: Ceftriaxone Sodium 1,000 mg/ (Sodium Chloride) 50 mls @ 100 mls/hr IV Q24H [facility]; Protocol Last Admin: 12/22/19 10:21 Dose: 100 mls/hr Documented by: Levothyroxine Sodium (Synthroid) 112 mcg PO DAILY [facility] Last Admin: 12/22/19 09:20 Dose: 112 mcg Documented by: Levothyroxine Sodium (Synthroid) 25 mcg PO DAILY [facility] Last Admin: 12/22/19 09:19 Dose: 25 mcg Documented by: Levothyroxine Sodium (Synthroid) 100 mcg IVP DAILY [facility] Lorazepam (Ativan) 1 mg IVP Q6H PRN PRN Reason: ANXIETY Methadone HCl (Dolophine) 10 mg PO Q8H [facility] Last Admin: 12/23/19 05:15 Dose: 10 mg Documented by: Midodrine (Proamatine) 5 mg PO TID [facility] Last Admin: 12/22/19 21:27 Dose: 5 mg Documented by: Ondansetron HCl (Zofran) 4 mg IVP Q6H PRN PRN Reason: NAUSEA AND VOMITING Oxycodone HCl (Oxycontin) 10 mg PO BID PRN PRN Reason: pain Last Admin: 12/22/19 21:41 Dose: 10 mg Documented by: Sodium Chloride (Salt Tab) 1 gm PO BID [facility] Last Admin: 12/22/19 16:46 Dose: 1 gm Documented by: Vitals/I&O/Wt Last Vital Signs Temp 98.3 F 12/24/19 19:16 Pulse 88 12/24/19 19:16 Resp 19 H 12/24/19 19:16 BP 95/62 12/24/19 19:16 Pulse Ox 94 12/24/19 19:16 12/24/19 12/24/19 12/24/19 06:59 14:59 22:59 Intake Total 480 / 480 500 / 980 Output Total 650 / 1050 Balance -650 / -520 480 / 480 500 / 980 Weight last 48 hrs Weight 179 lb 4.8 oz Physical Exam Narrative: EXAM NARRATIVE: GENERAL: Patient is alert, awake and oriented x3. NECK: No jugular vein distension. HEENT: No cyanosis. No icterus. No pallor. HEART: Regular S1 and S2. No murmur, rub or gallop. LUNGS: Clear to auscultate bilaterally. ABDOMEN: Soft, nontender and nondistended. Positive bowel sounds. No guarding, rebound or tenderness. CENTRAL NERVOUS SYSTEM: Right arm weakness. EXTREMITIES: Lower extremities with 1+ edema bilaterally. Bilateral venous ulcer with necrotic base and cellulits. Wearing stockings Urinary Catheter Management^: Gorman: Cath Placed During This Visit: yes, but has since been removed by the nurse Reason for Continuing Indwelling Catheter: Not indwelling catheter Urinary Catheter Date of Insertion: 12/20/19 Urinary Catheter Time of Insertion: 02:43 Date Urinary Catheter Removed: 12/23/19 Time Urinary Catheter Discontinued: 11:32 Data : 12/25/19 04:55 12/25/19 04:55 Micro: Microbiology 12/23/19 05:20 MRSA Culture - Final Nose A&P Assessment and plan (1) High level of cardiac marker: Type II non-ST elevation NV most likely due to high CK and sepsis. Continue conservative management Status: Acute (2) Acute kidney injury: Improved. Status: Acute (3) Acute hyponatremia: Improved. Status: Acute (4) Weakness: As per medicine Status: Acute (5) Stasis ulcer of left lower extremity: Bilateral lower venous stasis ulcers will ask for venous reflux study to assess if there is a reflux we may help her by ablating the veins. Status: Acute Attestations Medical Necessity Statement*: Require continuation of hospitalization for ab ove defined care. Coding Level of Care Code Acute Asbestos Brake Lining Finisher Helper for Chg Fwd Diagnoses High level of cardiac marker R74.8 Acute kidney injury N17.9 Acute hyponatremia E87.1 Weakness R53.1 Stasis ulcer of left lower extremity I83.029; L97.929
--- NOTE | 2019-12-24 20:10 | PC.NURSE ---
Pt dressing changed to bilateral legs first thing in the morning by OT, dressings changed from hydroferablue to maxorb,pt tolerated well, dressing to left buttock changed, hydroferablue with optifoam applied. Pt has been alert oriented and pain has been under control this shift. No Bm today per pt.
[2019-12-24] MEDS: atorvastatin 40 mg Tablet PO (20:46)
[2019-12-24 21:15] LABS: Glucose Point of Care 212 mg/dL (70-110)
[2019-12-25] VITALS (12 sets, daily range): BP systolic 90–111; BP diastolic 54–64; PULSE 84–93; RESP 14–85; TEMP 36.7–37.1; O2SAT 95–99; BMI 28.0
--- NOTE | 2019-12-25 00:25 | PC.NURSE ---
Pt received 10mg oxycontin at bed time tonight - methadone was scheduled for 2200, but patient was in a mildly sedated state when i went to give. Took some time to get the patient to answer questions about her pain, to which she stated not really in any . Pt bp also soft at 97/63. I elected to not give the methadone at this time. Will monitor for any signs of over sedation.
[2019-12-25 05:12] LABS: Basophils % 0.6 %; Eosinophils # 0.2 10^3/uL (0.0-0.8); Eosinophils % 3.4 %; Hematocrit 29.2 % (37.0-47.0); Hemoglobin 8.9 g/dL (11.5-15.3); Lymphocytes # 1.3 10^3/uL (0.8-4.8); Lymphocytes % 18.3 %; Mean Corpuscular HGB Conc 30.5 g/dL (30.0-36.0); Mean Corpuscular Hemoglobin 26.4 pg (28.0-34.0); Mean Corpuscular Volume 86.6 fL (81-99); Mean Platelet Volume 9.5 fL (7.4-10.4); Monocytes # 0.6 10^3/uL (0.2-0.9); Monocytes % 8.9 %; Neutrophils % 66.3 %; Nucleated Red Blood Cells % 0 %; Platelet Count 314 10^3/cmm (130-400); Red Blood Count 3.37 10^6/uL (4.1-5.3); Red Cell Distribution Width 21.8 % (12.1-15.1); White Blood Count 7.1 10^3/uL (4.0-10.0)
[2019-12-25] MEDS: methadone 10 mg Tablet PO ×2 (05:35→14:56)
[2019-12-25 05:42] LABS: Alanine Aminotransferase 51 U/L (0-33); Albumin Level 2.5 g/dL (3.5-5.2); Alkaline Phosphatase 301 IU/L (35-105); Anion Gap 12.1 (5-19); Aspartate Amino Transferase 53 U/L (0-32); Blood Urea Nitrogen 16 mg/dL (8-23); Calcium 8.9 mg/dL (8.5-10.5); Carbon Dioxide 22 mmol/L (22-29); Chloride 103 mmol/L (98-107); Glomerular Filtration Rate 71.1 mL/min (90-130); Glucose 127 mg/dL (65-115); Osmolality Calculated 279 mOsm/kg (285-295); Potassium 4.1 mmol/L (3.5-5.1); Sodium 133 mmol/L (136-145); Total Bilirubin 0.2 mg/dL (0.15-1.2); Total Protein 5.5 g/dL (6.6-8.7)
[2019-12-25 05:57] LABS: Free T4 Free Thyroxine 0.93 ng/dL (0.82-1.77); T3 Free 1.6 PG/ML (2.0-4.4); Thyroid Stimulating Hormone 8.03 uIU/mL (0.27-4.20)
--- NOTE | 2019-12-25 07:05 | PC.OT ---
OT NOTE: PATIENT UNABLE TO BE SEEN BY SKILLED OT TODAY GOALS ARE FOR LYMPHEDEMA TREATMENT ONLY. LYMPHEDEMA THERAPIST FOR OT NOT ON SITE TODAY. P.T. WILL ADDRESS LYMPH GOALS.
--- NOTE | 2019-12-25 09:25 | PC.SOCIAL ---
IMM Updated Page 2 of IMM updated and given to patient. Initialed, dated, and timed and placed back in chart.
--- NOTE | 2019-12-25 10:51 | PM.PN ---
Subjective Subjective: Interval history: No acute event overnight. Patient states comfortable. Denies any nausea, vomiting. She is a little more awake today. Asking when can she be discharged to senior care. Vitals/I&O/Wt Last Vital Signs Temp 98.6 F 12/25/19 08:00 Pulse 84 12/25/19 08:00 Resp 16 12/25/19 08:00 BP 111/61 12/25/19 08:00 Pulse Ox 95 12/25/19 08:00 12/24/19 12/25/19 12/25/19 22:59 06:59 14:59 Intake Total 760 / 1240 120 / 120 Balance 760 / 1240 120 / 120 Weight last 48 hrs Weight 81.329 kg Weight 81.329 kg Physical Exam Const: COMMON NORMALS: no acute distress, patient oriented x3 and alert GENERAL APPEARANCE: cooperative, comfortable and frail appearing NUTRITIONAL APPEARANCE: overweight ORIENTATION/CONSCIOUSNESS: Yes awake HENMT: COMMON NORMALS: normocephalic, atraumatic, hearing grossly normal bilaterally and oropharynx normal HEAD & SCALP: normocephalic and atraumatic Eye: COMMON NORMALS: Equal, round and reactive pupils present, EOMs intact bilaterally and conjunctivae normal CONJUNCTIVA: Yes conjunctivae normal PUPIL: Yes Equal, round and reactive pupils present Neck/C-Spine: COMMON NORMALS: full ROM and no JVD GENERAL: Yes normal visual inspection and Yes trachea midline Resp: COMMON NORMALS: normal respiratory effort, No retractions, No use of accessory muscles and clear to auscultation bilaterally EFFORT & INSPECTION: Yes able to speak in complete sentences, Yes symmetric chest movement and No tachypneic AUSCULTATION: clear to auscultation bilaterally OTHER: -on RA Cardio: COMMON NORMALS: no JVD, regular rate, regular rhythm, S1 normal heart sound present, S2 normal heart sound present and No murmurs present (Cardio) RATE: regular rate RHYTHM: regular rhythm HEART SOUNDS: S1 normal heart sound present and S2 normal heart sound present GI: COMMON NORMALS: Normal to inspection, nondistended, normoactive bowel sounds present, Soft to palpation and non-tender INSPECTION: Yes central obesity PALPATION: Yes Soft to palpation Extremity: COMMON NORMALS: normal to inspection, full ROM, no joint enlargement, no clubbing, cyanosis or edema and no pedal edema NARRATIVE EXTREMITY EXAM: -bilateral foot drop -lymphedema wraps on bilateral LEs OTHER: Lower extremities are wrapped in compression dressings. Left lower extremity shorter and everted Healed scars on right shoulder after prior surgery. 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 She does report some numbness of the right arm which has been new since last week. Neuro: COMMON NORMALS: patient oriented x3, moves all extremities, no focal motor deficits and no sensory deficits noted SENSORIUM/ORIENTATION: Yes alert and Yes somnolent GAIT: Yes Other gait observations present (WC-bound) OTHER: -Noted upper extremity tremor Psych: COMMON NORMALS: mental status grossly normal, Normal thought process present, cooperative, normal affect and speech normal SPEECH: Yes normal speech THOUGHT PROCESS: Normal thought process present Skin: COMMON NORMALS: no rashes or lesions noted, no jaundice, no petechiae and no mottling GENERAL SKIN EXAM: no rashes or lesions noted OTHER: Bilateral chronic venous stasis dermatitis with currently more erythema below the knee on the right side, and below mid cole on the left side, with multiple venous stasis ulcerations on shins, ankles, feet bilaterally. Serous appearing drainage without foul smell, no mottling, no cyanosis, no purulent discharge. Urinary Catheter Management^: Gorman: Cath Placed During This Visit: yes, but has since been removed by the nurse Reason for Continuing Indwelling Catheter: Not indwelling catheter Urinary Catheter Date of Insertion: 12/20/19 Urinary Catheter Time of Insertion: 02:43 Date Urinary Catheter Removed: 12/23/19 Time Urinary Catheter Discontinued: 11:32 Data : 12/25/19 04:55 12/25/19 04:55 Micro: Microbiology 12/20/19 06:12 Blood Culture - Final Blood NO GROWTH AFTER 5 DAYS 12/20/19 06:10 Blood Culture - Final Blood NO GROWTH AFTER 5 DAYS A&P Assessment and plan (1) Hyponatremia: Status: Acute (2) Hypothyroidism: Status: Acute (3) Venous stasis dermatitis of both lower extremities: Status: Acute (4) Stasis ulcer of left lower extremity: Status: Acute (5) Rhabdomyolysis: Improving. Continue gentle IV hydration. Recheck in the morning. Status: Acute Qualifiers: Rhabdomyolysis type: non-traumatic Qualified Code(s): M62.82 - Rhabdomyolysis (6) Neuropathy: -Hold gabapentin for now given acute renal injury Status: Chronic (7) Acute kidney injury: Status: Acute (8) Hyperkalemia: This is resolved with treatment. Currently normal. Status: Acute (9) Physical deconditioning: Status: Acute Additional A&P Information Cellulitis: Patient has finished 5-day course of appropriate antibiotics.. On examination patient does not seem to have any active cellulitis and more so has residual dermatitis because of chronic venous stasis. Last dose of antibiotics today. At home patient gets compression bandage through home health. We will continue the same. We will continue using Hydrofera Blue and Maxorb accordingly. Hyponatremia: Resolved. Most likely combination of prerenal and severe hypothyroidism. Nephrology consultation appreciated. Discontinue IV fluids. Continue with salt tabs 1 g twice daily. Continue monitoring BMP daily. FANI: Creatinine back to baseline. Most likely because of dehydration. Nephrology recommendations appreciated. Medical reconciliation done for nephrotoxic drugs. SETH Gorman. CT abdomen/renal ultrasound results appreciated. Hypothyroidism: TSH, free T3 and T4 improving. Will give 1 more dose of IV levothyroxine today. Continue to monitor thyroid panel. Increase dose to levothyroxine 150 mcg from tomorrow. Patient will need repeat TSH, free T3 and T4 in 1 month. Troponin abnormality: No chest pain. EKG changes likely repolarization. Troponin 65-65-58. She is having no chest pain. She does report history of IA may be a year ago. Suspect this is likely demand ischemia. Appreciate cardiology assessment. Echocardiogram?shows an EF of 75% with grade 1 diastolic dysfunction with no regional wall motion abnormality, mild AI, moderately calcified aortic valve. Acute encephalopathy: Now resolved. She is encephalopathic secondary to metabolic changes. Hyponatremia. Acute kidney injury. Hypothyroidism. Chronic venous stasis: With chronic venous dermatitis, with chronic venous stasis multiple ulcers bilateral lower extremities. Daughter reports that she was offered bilateral AKA amputation, and was considering to do that but did back out to the last minute. At this time will continue compression dressings. Continue follow-up with Dr. Jacobo. While inpatient will continue to dress with compression stockings and Maxorb. Patient is getting venous duplex insufficiency study today. We will continue to follow the results. -Chronic pain, on chronic narcotics; hold narcotics except for methadone to avoid withdrawal. Multilevel DJD noted on CT -lipase elevation (182); noted mild pancreas enlargement on CT. still no abdominal pain. She is eating. Perhaps minimal pancreatitis. GB us -status post cholecystectomy, CBD could not be visualized. On CT no reports of abnormal CBD. Recheck. 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 Possible dislocation versus neuropathic joint of the left hip: She is nonambulatory at baseline. Thus get herself in and out of the wheelchair and to the commode at home with assistive devices. Right arm numbness: Reports since last week has had numbness of the right arm. She was on a somnolent, confused earlier, so this appears to be the first time she is reporting it. Says that it has not improved significantly. Says that she has been having pain in the right side of her neck as well with cracking and popping sounds when she is moving her neck. Says the power is the same in the right upper and lower extremity. There is no facial droop. There is no sensory neglect. Otherwise power is the same as usual for her bilaterally. Sensation are unchanged on lower extremities. Visual conner are full to confrontation. FNF is normal. I discussed with her possible etiologies. Cannot exclude that this may not have been a stroke, however, with lack of other focal abnormalities, and with localized pain in the right neck, with other associated symptoms this appears to be more secondary to possible radiculopathy secondary to DJD. Discussed tomorrow potentially could assess with MRI brain to exclude CVA. Her above medical conditions discussed with her daughter in detail who is agreeable with assessment and plan. -renal diet as tolerated -DVT ppx with heparin. Discharge planning: Patient feeling significantly weak. Physical therapy recommendations appreciated. Patient will require SNF placement because of severe deconditioning. Patient will most likely go to [place] [facility]. Attestations Medical Necessity Statement*: Hyponatremia, chronic venous stasis ulcer. Time Spent in Patient Care: Greater than 35 minutes (>than 50% of time spent in counselling and/or direct pt care on unit). Coding Level of Care Code Acute [facility] for [facility] Fwd Exam Comprehensive Diagnoses Hyponatremia E87.1 Hypothyroidism E03.9 Venous stasis dermatitis of both lower extremities I87.2 Stasis ulcer of left lower extremity I83.029; L97.929 Rhabdomyolysis M62.82 Rhabdomyolysis type: non-traumatic Neuropathy G62.9 Acute kidney injury N17.9 Hyperkalemia E87.5 Physical deconditioning R53.81
[2019-12-25] MEDS: heparin 5,000 unit/mL INJ 1 mL 5000 UNIT SUBCUT ×2 (10:52→19:53)
[2019-12-25] MEDS: allopurinol 300 mg Tablet PO (10:53)
[2019-12-25] MEDS: aspirin 81 mg Chew Tablet PO (10:53)
[2019-12-25] MEDS: cetirizine 10 mg Tablet PO (10:54)
[2019-12-25] MEDS: famotidine 20 mg Tablet PO ×2 (10:55→19:52)
[2019-12-25] MEDS: levothyroxine 100 mcg SDV IVP (10:57)
[2019-12-25] MEDS: gabapentin 400 mg Capsule 800 MG PO ×3 (10:57→21:11)
[2019-12-25] MEDS: oxyCODONE 10 mg ER (12 HR) Tablet PO (10:58)
[2019-12-25] MEDS: midodrine 5 mg TABLET PO ×3 (10:58→21:11)
[2019-12-25] MEDS: sodium chloride 1 gm Tablet PO ×2 (12:17→19:53)
--- NOTE | 2019-12-25 14:35 | PC.CHAP ---
Pastoral Care Encounter/Spiritual Assessment Type of Contact [] Declined parts picker visit [] Patient/Family/Request visit [] Outpatient visit [] Follow-up visit [] Physician referral [] Code/Alert [x] Routine visit [] Staff referral [] Actively dying [] Patient sleeping [] Family support [] [] Out of room [] Palliative care [] [x] Receiving care in room [] Pre-surgical visit [] Trauma [] Long length of stay [] ICU visit [] Other: Relational/Emotional Strength [] Patient feels connected with others/family/visitors/staff [x] Distress [] Loneliness/isolation [] Abandonment Spirituality of Patient [x] Person of Alysia [] Attends Yarsanism of their Alysia [x] Believes in Prayer [] Reads Bible or Samaritan materials [] There are Spiritual issues to be addressed Actuarial Technician Interventions [x] Prayer [x] Active listening [x] Non-anxious presence [x] Spiritual/emotional support [] Crisis/trauma care [x] Spiritual counseling [] Bereavement support [] Provided bereavement packet [] Provided Bible/devotional materials [] Provided toy/stuffed animal, coloring book to patient or family member [] Provided Communion [] Anointing/Piru [] Salvation [] Completed spiritual assessment [] Other: Impact on Illness or Injury [] Angry [x] Fearful [] Anxious [] Often cries [] Exhaustion [x] Unable to work [] Unable to attend buddhist [] Unable to walk/stand [] Unable to read [x] Unable to drive [] Unable to eat/drink [] Unable to sleep [] Unable to be with family [] Patient intubated [] Other: Summary Doesn't know what is wrong and unable to comunicate her feelings, not sure when she can go home Time spent with patient
--- NOTE | 2019-12-25 17:57 | P.PN_ITS ---
Subjective Subjective: Interval history: Able continues to do fine from a cardiovascular and mental status perspective Medications: Reviewed: Yes Medication Review Details: Current Medications Acetaminophen (Tylenol) 650 mg PO Q6H PRN PRN Reason: MILD PAIN OR INCREASE TEMP Allopurinol (Zyloprim) 300 mg PO DAILY [facility] Last Admin: 12/22/19 09:21 Dose: 300 mg Documented by: Aspirin (Aspirin Chewable) 81 mg PO DAILY [facility] Last Admin: 12/22/19 09:21 Dose: 81 mg Documented by: Atorvastatin Calcium (Lipitor) 40 mg PO BEDTIME [facility] Last Admin: 12/22/19 21:27 Dose: 40 mg Documented by: Cetirizine HCl (Zyrtec) 10 mg PO DAILY [facility] Last Admin: 12/22/19 09:20 Dose: 10 mg Documented by: Famotidine (Pepcid Inj) 20 mg IVP Q12H [facility] Last Admin: 12/22/19 21:15 Dose: 20 mg Documented by: Gabapentin (Neurontin) 800 mg PO TID [facility] Last Admin: 12/22/19 21:26 Dose: 800 mg Documented by: Heparin Sodium (Beef Lung) (Heparin) 5,000 unit SUBCUT Q12H [facility] Last Admin: 12/22/19 21:27 Dose: 5,000 unit Documented by: Sodium Chloride (Sodium Chloride 0.9%) 1,000 mls @ 75 mls/hr IV .[id number] [facility] Last Admin: 12/22/19 21:27 Dose: 75 mls/hr Documented by: Ceftriaxone Sodium 1,000 mg/ (Sodium Chloride) 50 mls @ 100 mls/hr IV Q24H [facility]; Protocol Last Admin: 12/22/19 10:21 Dose: 100 mls/hr Documented by: Levothyroxine Sodium (Synthroid) 112 mcg PO DAILY [facility] Last Admin: 12/22/19 09:20 Dose: 112 mcg Documented by: Levothyroxine Sodium (Synthroid) 25 mcg PO DAILY [facility] Last Admin: 12/22/19 09:19 Dose: 25 mcg Documented by: Levothyroxine Sodium (Synthroid) 100 mcg IVP DAILY [facility] Lorazepam (Ativan) 1 mg IVP Q6H PRN PRN Reason: ANXIETY Methadone HCl (Dolophine) 10 mg PO Q8H [facility] Last Admin: 12/23/19 05:15 Dose: 10 mg Documented by: Midodrine (Proamatine) 5 mg PO TID [facility] Last Admin: 12/22/19 21:27 Dose: 5 mg Documented by: Ondansetron HCl (Zofran) 4 mg IVP Q6H PRN PRN Reason: NAUSEA AND VOMITING Oxycodone HCl (Oxycontin) 10 mg PO BID PRN PRN Reason: pain Last Admin: 12/22/19 21:41 Dose: 10 mg Documented by: Sodium Chloride (Salt Tab) 1 gm PO BID [facility] Last Admin: 12/22/19 16:46 Dose: 1 gm Documented by: Vitals/I&O/Wt Last Vital Signs Temp 98.8 F 12/25/19 16:00 Pulse 84 12/25/19 12:00 Resp 17 12/25/19 12:00 BP 111/64 12/25/19 12:00 Pulse Ox 98 12/25/19 12:00 12/25/19 12/25/19 12/25/19 06:59 14:59 22:59 Intake Total 560 / 560 Balance 560 / 560 Weight last 48 hrs Weight 179 lb 4.8 oz Weight 179 lb 4.8 oz Physical Exam Narrative: EXAM NARRATIVE: GENERAL: Patient is alert, awake and oriented x3. NECK: No jugular vein distension. HEENT: No cyanosis. No icterus. No pallor. HEART: Regular S1 and S2. No murmur, rub or gallop. LUNGS: Clear to auscultate bilaterally. ABDOMEN: Soft, nontender and nondistended. Positive bowel sounds. No guarding, rebound or tenderness. CENTRAL NERVOUS SYSTEM: Right arm weakness. EXTREMITIES: Lower extremities with 1+ edema bilaterally. Bilateral venous ulcer with necrotic base and cellulits. Wearing stockings Urinary Catheter Management^: Gorman: Cath Placed During This Visit: yes, but has since been removed by the nurse Reason for Continuing Indwelling Catheter: Not indwelling catheter Urinary Catheter Date of Insertion: 12/20/19 Urinary Catheter Time of Insertion: 02:43 Date Urinary Catheter Removed: 12/23/19 Time Urinary Catheter Discontinued: 11:32 Data : 12/25/19 04:55 12/25/19 04:55 Micro: Microbiology 12/20/19 06:12 Blood Culture - Final Blood NO GROWTH AFTER 5 DAYS 12/20/19 06:10 Blood Culture - Final Blood NO GROWTH AFTER 5 DAYS A&P Assessment and plan (1) High level of cardiac marker: Type II non-ST elevation OR most likely due to high CK and sepsis. Continue conservative management Status: Acute (2) Acute kidney injury: Improved. Status: Acute (3) Acute hyponatremia: Improved. Status: Acute (4) Weakness: As per medicine Status: Acute (5) Stasis ulcer of left lower extremity: Since patient is laying in the bed due to technical difficulty and fear of false negative ultrasonogram reflux study we will defer the study once she will be mobile and sitting in that case appropriate exam can be performed. Status: Acute Attestations Medical Necessity Statement*: Require continuation hospitalization for above defined care. Coding Level of Care Code Established Pt Acute Pasta Maker for [facility] Fwd Patient Type Established History Expanded Problem Focused Exam Expanded Problem Focused Medical Decision Making Moderate Complexity Diagnoses High level of cardiac marker R74.8 Acute kidney injury N17.9 Acute hyponatremia E87.1 Weakness R53.1 Stasis ulcer of left lower extremity I83.029; L97.929
--- NOTE | 2019-12-25 20:32 | PC.NURSE ---
Dr. Serrano notified due to no pt dressings being saturated and the dressings the pt has on we do not have stocked on floor, so he ordered for nurse to apply maxorb silver, abd, and kerlex until morning when OT can apply proper dressings.
[2019-12-25] MEDS: atorvastatin 40 mg Tablet PO (21:12)
[2019-12-26] VITALS (13 sets, daily range): BP systolic 94–113; BP diastolic 54–70; PULSE 72–87; RESP 14–18; TEMP 36.7–36.9; O2SAT 91–98; BMI 28.0
--- NOTE | 2019-12-26 | USCV_ITS ---
Jessica Herrera Age: 69 Gender: F : 1950 Exam Date: 12/26/2019 15:59 Ordering Phys: Miguel Hall MD ([email or web address]) Technologist: Kori Chauhan [place] [facility] [place]: H[place]ORY: PROCEDURES: FINDINGS: Right GSV has been removed, Right SSV unable to visulize Left GSV to small to follow ? prior removal. Left SSV to small to visulize. Bilateral deep system reflux. CONCLUSIONS Significant venous reflux of greater than one thousand milliseconds were noted at the femoral and popliteal veins on the right side and common femoral and popliteal veins on the left side The right and left greater saphenous veins were found to be removed. The small saphenous veins were difficult to visualize No evidence of any deep vein thrombosis bilaterally Dr Kaveh Cherry MD FAC (Electronically Signed) Final Date: 30 December 2019 08:37 S
[2019-12-26] MEDS: oxyCODONE 10 mg ER (12 HR) Tablet PO (00:56)
[2019-12-26] MEDS: methadone 10 mg Tablet PO ×3 (06:12→23:46)
[2019-12-26 06:34] LABS: Alanine Aminotransferase 54 U/L (0-33); Albumin Level 2.4 g/dL (3.5-5.2); Alkaline Phosphatase 307 IU/L (35-105); Anion Gap 12.1 (5-19); Aspartate Amino Transferase 60 U/L (0-32); Blood Urea Nitrogen 13 mg/dL (8-23); Calcium 8.8 mg/dL (8.5-10.5); Carbon Dioxide 22 mmol/L (22-29); Chloride 105 mmol/L (98-107); Globulin 2.8 g/dL (1.3-4.6); Glomerular Filtration Rate 71.1 mL/min (90-130); Glucose 102 mg/dL (65-115); Osmolality Calculated 280 mOsm/kg (285-295); Potassium 4.1 mmol/L (3.5-5.1); Sodium 135 mmol/L (136-145); T3 Free 1.8 PG/ML (2.0-4.4); Thyroid Stimulating Hormone 5.49 uIU/mL (0.27-4.20); Total Bilirubin 0.2 mg/dL (0.15-1.2); Total Protein 5.2 g/dL (6.6-8.7)
--- NOTE | 2019-12-26 08:48 | PC.OT ---
OT NOTE: SPOKE WITH ZA TAYLOR,OTR/L , LYMPH CERTIFIED REGARDING THIS PATIENT SHE WAS THE PATIENT'S HH THERAPIST AND WAS WORKING INPATIENT THE DAY THAT THE PATIENT NEEDED TO BE SEEN. SHE STATES THAT SHE SPOKE WITH REGARDING THIS PATIENT AND WITH HIS APPROVAL ADDRESSED DRESSINGS AND WRAPS FOR THIS PATIENT ON THAT DAY. SHE STATES THAT SHE THEN SPOKE WITH MARLY WHALEY AND LYN NURSE DIXONAC OPERATOR REGARDING THIS PATIENT AND THAT THIS WOULD FURTHER NEED TO BE ADDRESSED BY NURSING. PER ZA, THEY VOICED AGREEMENT AND UNDERSTANDING. HOWEVER, PER DOCUMENTATION IN THE CHART IT IMPLIES THAT OT WILL BE PERFORMING DRESSING CHANGES. I SPOKE WITH ZA THIS MORNING REGARDING THIS COMPLEX MISUNDERSTANDING. AND SHE RELATED THE ABOVE INFORMATION TO ME. THERE ARE NO OT ORDERS IN THIS PATIENTS CHART (EMR). I SPOKE WITH АННА CAT -PATIENT NURSE AND MARLY LUNA- CHARGE NURSE THIS MORNING REGARDING THIS ISSUE AND THAT THE OT SPECIALIZING IN LYMPH (ZA) IS NOT AN ONSITE THERAPIST AND THAT NURSING WOULD NEED TO ADDRESS WOUND CARE,DRESSING, WRAPS. TENZIN VOICED AGREEMENT AND UNDERSTANDING.
[2019-12-26] MEDS: heparin 5,000 unit/mL INJ 1 mL 5000 UNIT SUBCUT ×2 (08:56→20:08)
[2019-12-26] MEDS: gabapentin 400 mg Capsule 800 MG PO ×3 (08:56→20:08)
[2019-12-26] MEDS: allopurinol 300 mg Tablet PO (08:56)
[2019-12-26] MEDS: cetirizine 10 mg Tablet PO (08:56)
[2019-12-26] MEDS: midodrine 5 mg TABLET PO ×3 (08:57→20:09)
[2019-12-26] MEDS: levothyroxine 150 mcg Tablet PO (08:57)
[2019-12-26] MEDS: aspirin 81 mg Chew Tablet PO (08:57)
--- NOTE | 2019-12-26 09:01 | PM.PN ---
Subjective Subjective: Interval history: Status quo. Patient continues to do well. Denies of any nausea, vomiting, headache, chest pain. Vitals and labs noted. Vitals/I&O/Wt Last Vital Signs Temp 98.4 F 12/26/19 08:00 Pulse 87 12/26/19 08:00 Resp 17 12/26/19 08:00 BP 95/54 12/26/19 08:00 Pulse Ox 91 12/26/19 08:00 12/25/19 12/26/19 12/26/19 22:59 06:59 14:59 Intake Total 310 / 870 250 / 1120 Output Total 300 / 300 Balance 10 / 570 250 / 820 Weight last 48 hrs Weight 81.329 kg Weight 81.329 kg Physical Exam Const: COMMON NORMALS: no acute distress, patient oriented x3 and alert GENERAL APPEARANCE: cooperative, comfortable and frail appearing NUTRITIONAL APPEARANCE: overweight ORIENTATION/CONSCIOUSNESS: Yes awake HENMT: COMMON NORMALS: normocephalic, atraumatic, hearing grossly normal bilaterally and oropharynx normal HEAD & SCALP: normocephalic and atraumatic Eye: COMMON NORMALS: Equal, round and reactive pupils present, EOMs intact bilaterally and conjunctivae normal CONJUNCTIVA: Yes conjunctivae normal PUPIL: Yes Equal, round and reactive pupils present Neck/C-Spine: COMMON NORMALS: full ROM and no JVD GENERAL: Yes normal visual inspection and Yes trachea midline Resp: COMMON NORMALS: normal respiratory effort, No retractions, No use of accessory muscles and clear to auscultation bilaterally EFFORT & INSPECTION: Yes able to speak in complete sentences, Yes symmetric chest movement and No tachypneic AUSCULTATION: clear to auscultation bilaterally OTHER: -on RA Cardio: COMMON NORMALS: no JVD, regular rate, regular rhythm, S1 normal heart sound present, S2 normal heart sound present and No murmurs present (Cardio) RATE: regular rate RHYTHM: regular rhythm HEART SOUNDS: S1 normal heart sound present and S2 normal heart sound present GI: COMMON NORMALS: Normal to inspection, nondistended, normoactive bowel sounds present, Soft to palpation and non-tender INSPECTION: Yes central obesity PALPATION: Yes Soft to palpation Extremity: COMMON NORMALS: normal to inspection, full ROM, no joint enlargement, no clubbing, cyanosis or edema and no pedal edema NARRATIVE EXTREMITY EXAM: -bilateral foot drop -lymphedema wraps on bilateral LEs OTHER: Lower extremities are wrapped in compression dressings. Left lower extremity shorter and everted Healed scars on right shoulder after prior surgery. 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 She does report some numbness of the right arm which has been new since last week. Neuro: COMMON NORMALS: patient oriented x3, moves all extremities, no focal motor deficits and no sensory deficits noted SENSORIUM/ORIENTATION: Yes alert and Yes somnolent GAIT: Yes Other gait observations present (WC-bound) OTHER: -Noted upper extremity tremor Psych: COMMON NORMALS: mental status grossly normal, Normal thought process present, cooperative, normal affect and speech normal SPEECH: Yes normal speech THOUGHT PROCESS: Normal thought process present Skin: COMMON NORMALS: no rashes or lesions noted, no jaundice, no petechiae and no mottling GENERAL SKIN EXAM: no rashes or lesions noted OTHER: Bilateral chronic venous stasis dermatitis with currently more erythema below the knee on the right side, and below mid cole on the left side, with multiple venous stasis ulcerations on shins, ankles, feet bilaterally. Serous appearing drainage without foul smell, no mottling, no cyanosis, no purulent discharge. Urinary Catheter Management^: Gorman: Cath Placed During This Visit: yes, but has since been removed by the nurse Reason for Continuing Indwelling Catheter: Not indwelling catheter Urinary Catheter Date of Insertion: 12/20/19 Urinary Catheter Time of Insertion: 02:43 Date Urinary Catheter Removed: 12/23/19 Time Urinary Catheter Discontinued: 11:32 Data : 12/25/19 04:55 12/26/19 04:58 Micro: Microbiology 12/20/19 06:12 Blood Culture - Final Blood NO GROWTH AFTER 5 DAYS 12/20/19 06:10 Blood Culture - Final Blood NO GROWTH AFTER 5 DAYS A&P Assessment and plan (1) Hyponatremia: Status: Acute (2) Hypothyroidism: Status: Acute (3) Venous stasis dermatitis of both lower extremities: Status: Acute (4) Stasis ulcer of left lower extremity: Status: Acute (5) Rhabdomyolysis: Improving. Continue gentle IV hydration. Recheck in the morning. Status: Acute Qualifiers: Rhabdomyolysis type: non-traumatic Qualified Code(s): M62.82 - Rhabdomyolysis (6) Neuropathy: -Hold gabapentin for now given acute renal injury Status: Chronic (7) Acute kidney injury: Status: Acute (8) Hyperkalemia: This is resolved with treatment. Currently normal. Status: Acute (9) Physical deconditioning: Status: Acute Additional A&P Information Hypothyroidism: TSH on May, T4 continues to improve. Patient received 2 doses of IV levothyroxine 100 mcg daily. From now patient will be getting levothyroxine 150 mcg oral daily. Patient to repeat thyroid panel in 1 month. Cellulitis: Patient has finished 5-day course of appropriate antibiotics.. On examination patient does not seem to have any active cellulitis and more so has residual dermatitis because of chronic venous stasis. Last dose of antibiotics today. At home patient gets compression bandage through home health. We will continue the same. We will continue using Hydrofera Blue and Maxorb accordingly. Hyponatremia: Resolved. Most likely combination of prerenal and severe hypothyroidism. Nephrology consultation appreciated. Discontinue IV fluids. Continue with salt tabs 1 g twice daily. Continue monitoring BMP daily. FANI: Creatinine back to baseline. Most likely because of dehydration. Nephrology recommendations appreciated. Medical reconciliation done for nephrotoxic drugs. SETH Gorman. CT abdomen/renal ultrasound results appreciated. Troponin abnormality: No chest pain. EKG changes likely repolarization. Troponin 65-65-58. She is having no chest pain. She does report history of DE may be a year ago. Suspect this is likely demand ischemia. Appreciate cardiology assessment. Echocardiogram?shows an EF of 75% with grade 1 diastolic dysfunction with no regional wall motion abnormality, mild AI, moderately calcified aortic valve. Acute encephalopathy: Now resolved. She is encephalopathic secondary to metabolic changes. Hyponatremia. Acute kidney injury. Hypothyroidism. Chronic venous stasis: With chronic venous dermatitis, with chronic venous stasis multiple ulcers bilateral lower extremities. Daughter reports that she was offered bilateral AKA amputation, and was considering to do that but did back out to the last minute. At this time will continue compression dressings. Continue follow-up with Dr. Jacobo. While inpatient will continue to dress with compression stockings and Maxorb. Patient is getting venous duplex insufficiency study today. We will continue to follow the results. -Chronic pain, on chronic narcotics; hold narcotics except for methadone to avoid withdrawal. Multilevel DJD noted on CT -lipase elevation (182); noted mild pancreas enlargement on CT. still no abdominal pain. She is eating. Perhaps minimal pancreatitis. GB us -status post cholecystectomy, CBD could not be visualized. On CT no reports of abnormal CBD. Recheck. 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 Possible dislocation versus neuropathic joint of the left hip: She is nonambulatory at baseline. Thus get herself in and out of the wheelchair and to the commode at home with assistive devices. Right arm numbness: Reports since last week has had numbness of the right arm. She was on a somnolent, confused earlier, so this appears to be the first time she is reporting it. Says that it has not improved significantly. Says that she has been having pain in the right side of her neck as well with cracking and popping sounds when she is moving her neck. Says the power is the same in the right upper and lower extremity. There is no facial droop. There is no sensory neglect. Otherwise power is the same as usual for her bilaterally. Sensation are unchanged on lower extremities. Visual conner are full to confrontation. FNF is normal. I discussed with her possible etiologies. Cannot exclude that this may not have been a stroke, however, with lack of other focal abnormalities, and with localized pain in the right neck, with other associated symptoms this appears to be more secondary to possible radiculopathy secondary to DJD. Discussed tomorrow potentially could assess with MRI brain to exclude CVA. Her above medical conditions discussed with her daughter in detail who is agreeable with assessment and plan. -renal diet as tolerated -DVT ppx with heparin. Discharge planning: Patient feeling significantly weak. Physical therapy recommendations appreciated. Patient will require SNF placement because of severe deconditioning. Patient will most likely go to [facility]. Awaiting preauthorization. Attestations Medical Necessity Statement*: Hypothyroidism, chronic venous stasis with ulceration, severe deconditioning, awaiting preauthorization to be transferred to intermediate. Time Spent in Patient Care: Greater than 35 minutes (>than 50% of time spent in counselling and/or direct pt care on unit). Coding Level of Care Code Acute [employer] for Chg Fwd Exam Comprehensive Diagnoses Hyponatremia E87.1 Hypothyroidism E03.9 Venous stasis dermatitis of both lower extremities I87.2 Stasis ulcer of left lower extremity I83.029; L97.929 Rhabdomyolysis M62.82 Rhabdomyolysis type: non-traumatic Neuropathy G62.9 Acute kidney injury N17.9 Hyperkalemia E87.5 Physical deconditioning R53.81
[2019-12-26] MEDS: sodium chloride 1 gm Tablet PO ×2 (09:02→18:35)
[2019-12-26] MEDS: famotidine 20 mg Tablet PO ×2 (09:02→18:35)
--- NOTE | 2019-12-26 13:28 | P.PN_ITS ---
Subjective Subjective: Interval history: Denies any complaint. Medications: Reviewed: Yes Medication Review Details: Current Medications Acetaminophen (Tylenol) 650 mg PO Q6H PRN PRN Reason: MILD PAIN OR INCREASE TEMP Allopurinol (Zyloprim) 300 mg PO DAILY [facility] Last Admin: 12/22/19 09:21 Dose: 300 mg Documented by: Aspirin (Aspirin Chewable) 81 mg PO DAILY [facility] Last Admin: 12/22/19 09:21 Dose: 81 mg Documented by: Atorvastatin Calcium (Lipitor) 40 mg PO BEDTIME [facility] Last Admin: 12/22/19 21:27 Dose: 40 mg Documented by: Cetirizine HCl (Zyrtec) 10 mg PO DAILY [facility] Last Admin: 12/22/19 09:20 Dose: 10 mg Documented by: Famotidine (Pepcid Inj) 20 mg IVP Q12H [facility] Last Admin: 12/22/19 21:15 Dose: 20 mg Documented by: Gabapentin (Neurontin) 800 mg PO TID [facility] Last Admin: 12/22/19 21:26 Dose: 800 mg Documented by: Heparin Sodium (Beef Lung) (Heparin) 5,000 unit SUBCUT Q12H [facility] Last Admin: 12/22/19 21:27 Dose: 5,000 unit Documented by: Sodium Chloride (Sodium Chloride 0.9%) 1,000 mls @ 75 mls/hr IV .[id number] [facility] Last Admin: 12/22/19 21:27 Dose: 75 mls/hr Documented by: Ceftriaxone Sodium 1,000 mg/ (Sodium Chloride) 50 mls @ 100 mls/hr IV Q24H [facility]; Protocol Last Admin: 12/22/19 10:21 Dose: 100 mls/hr Documented by: Levothyroxine Sodium (Synthroid) 112 mcg PO DAILY [facility] Last Admin: 12/22/19 09:20 Dose: 112 mcg Documented by: Levothyroxine Sodium (Synthroid) 25 mcg PO DAILY [facility] Last Admin: 12/22/19 09:19 Dose: 25 mcg Documented by: Levothyroxine Sodium (Synthroid) 100 mcg IVP DAILY [facility] Lorazepam (Ativan) 1 mg IVP Q6H PRN PRN Reason: ANXIETY Methadone HCl (Dolophine) 10 mg PO Q8H [facility] Last Admin: 12/23/19 05:15 Dose: 10 mg Documented by: Midodrine (Proamatine) 5 mg PO TID [facility] Last Admin: 12/22/19 21:27 Dose: 5 mg Documented by: Ondansetron HCl (Zofran) 4 mg IVP Q6H PRN PRN Reason: NAUSEA AND VOMITING Oxycodone HCl (Oxycontin) 10 mg PO BID PRN PRN Reason: pain Last Admin: 12/22/19 21:41 Dose: 10 mg Documented by: Sodium Chloride (Salt Tab) 1 gm PO BID [facility] Last Admin: 12/22/19 16:46 Dose: 1 gm Documented by: Vitals/I&O/Wt Last Vital Signs Temp 98.5 F 12/26/19 11:06 Pulse 80 12/26/19 11:06 Resp 18 12/26/19 11:06 BP 100/61 12/26/19 12:56 Pulse Ox 92 12/26/19 11:06 12/25/19 12/26/19 12/26/19 22:59 06:59 14:59 Intake Total 310 / 870 250 / 1120 240 / 240 Output Total 300 / 300 210 / 210 Balance 10 / 570 250 / 820 30 / 30 Weight last 48 hrs Weight 179 lb 4.8 oz Weight 179 lb 4.8 oz Physical Exam Narrative: EXAM NARRATIVE: GENERAL: Patient is alert, awake and oriented x3. NECK: No jugular vein distension. HEENT: No cyanosis. No icterus. No pallor. HEART: Regular S1 and S2. No murmur, rub or gallop. LUNGS: Clear to auscultate bilaterally. ABDOMEN: Soft, nontender and nondistended. Positive bowel sounds. No guarding, rebound or tenderness. CENTRAL NERVOUS SYSTEM: Right arm weakness. EXTREMITIES: Lower extremities with 1+ edema bilaterally. Bilateral venous ulcer with necrotic base and cellulits. Wearing stockings Urinary Catheter Management^: Gorman: Cath Placed During This Visit: yes, but has since been removed by the nurse Reason for Continuing Indwelling Catheter: Not indwelling catheter Urinary Catheter Date of Insertion: 12/20/19 Urinary Catheter Time of Insertion: 02:43 Date Urinary Catheter Removed: 12/23/19 Time Urinary Catheter Discontinued: 11:32 Data : 12/25/19 04:55 12/26/19 04:58 A&P Assessment and plan (1) High level of cardiac marker: Type II non-ST elevation WA most likely due to high CK and sepsis. Continue conservative management Status: Acute (2) Acute kidney injury: Improved. Status: Acute (3) Acute hyponatremia: Improved. Status: Acute (4) Weakness: As per medicine Status: Acute (5) Stasis ulcer of left lower extremity: Today I spoke with Dr. Davey to see whether patient will be ever able to walk concerns are not much therefore we will try to get the study done and except the result if there is significant reflux we will set it up for ablation. Status: Acute Attestations Medical Necessity Statement*: Patient require continuation hospitalization for above defined care. Coding Level of Care Code Established Pt Acute [employer] for Chg Fwd Patient Type Established History Expanded Problem Focused Exam Expanded Problem Focused Medical Decision Making Moderate Complexity Diagnoses High level of cardiac marker R74.8 Acute kidney injury N17.9 Acute hyponatremia E87.1 Weakness R53.1 Stasis ulcer of left lower extremity I83.029; L97.929
--- NOTE | 2019-12-26 15:10 | PC.NURSE ---
Dr. sneha pettyed pt receiving zinc oxide unna boot wraps to bilateral legs at this time, since the calamine unna boot wraps are not available from wound care [place] [facility] [place] [facility].
[2019-12-26] MEDS: atorvastatin 40 mg Tablet PO (20:08)
[2019-12-27] VITALS (12 sets, daily range): BP systolic 100–119; BP diastolic 52–67; PULSE 69–111; RESP 14–18; TEMP 36.7–37.3; O2SAT 91–98
[2019-12-27] MEDS: methadone 10 mg Tablet PO ×3 (06:11→22:08)
--- NOTE | 2019-12-27 09:06 | P.PN_ITS ---
Subjective Subjective: Interval history: Status quo. She is sitting comfortably in bed having her breakfast. States she is feeling well. Unable to find the compression stockings which patient uses at home for venous stasis dressings at home with home health. So plan is to have physical therapy evaluation for same today. Denies of any nausea, vomiting, headache, chest pain. Vitals and labs noted. Vitals/I&O/Wt Last Vital Signs Temp 98.6 F 12/27/19 07:14 Pulse 75 12/27/19 07:14 Resp 18 12/27/19 07:14 BP 108/60 12/27/19 07:14 Pulse Ox 94 12/27/19 07:14 12/26/19 12/27/19 12/27/19 22:59 06:59 14:59 Intake Total 120 / 600 240 / 240 Output Total 470 / 680 Balance 120 / 390 -470 / -80 240 / 240 Weight last 48 hrs Weight 81.329 kg Physical Exam Const: COMMON NORMALS: no acute distress, patient oriented x3 and alert GENERAL APPEARANCE: cooperative, comfortable and frail appearing NUTRITIONAL APPEARANCE: overweight ORIENTATION/CONSCIOUSNESS: Yes awake HENMT: COMMON NORMALS: normocephalic, atraumatic, hearing grossly normal bilaterally and oropharynx normal HEAD & SCALP: normocephalic and atraumatic Eye: COMMON NORMALS: Equal, round and reactive pupils present, EOMs intact bilaterally and conjunctivae normal CONJUNCTIVA: Yes conjunctivae normal PUPIL: Yes Equal, round and reactive pupils present Neck/C-Spine: COMMON NORMALS: full ROM and no JVD GENERAL: Yes normal visual inspection and Yes trachea midline Resp: COMMON NORMALS: normal respiratory effort, No retractions, No use of accessory muscles and clear to auscultation bilaterally EFFORT & INSPECTION: Yes able to speak in complete sentences, Yes symmetric chest movement and No tachypneic AUSCULTATION: clear to auscultation bilaterally OTHER: -on RA Cardio: COMMON NORMALS: no JVD, regular rate, regular rhythm, S1 normal heart sound present, S2 normal heart sound present and No murmurs present (Cardio) RATE: regular rate RHYTHM: regular rhythm HEART SOUNDS: S1 normal heart sound present and S2 normal heart sound present GI: COMMON NORMALS: Normal to inspection, nondistended, normoactive bowel sounds present, Soft to palpation and non-tender INSPECTION: Yes central obesity PALPATION: Yes Soft to palpation Extremity: COMMON NORMALS: normal to inspection, full ROM, no joint en largement, no clubbing, cyanosis or edema and no pedal edema NARRATIVE EXTREMITY EXAM: -bilateral foot drop -lymphedema wraps on bilateral LEs OTHER: Lower extremities are wrapped in compression dressings. Left lower extremity shorter and everted Healed scars on right shoulder after prior surgery. 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 She does report some numbness of the right arm which has been new since last week. Neuro: COMMON NORMALS: patient oriented x3, moves all extremities, no focal motor deficits and no sensory deficits noted SENSORIUM/ORIENTATION: Yes alert and Yes somnolent GAIT: Yes Other gait observations present (WC-bound) OTHER: -Noted upper extremity tremor Psych: COMMON NORMALS: mental status grossly normal, Normal thought process present, cooperative, normal affect and speech normal SPEECH: Yes normal speech THOUGHT PROCESS: Normal thought process present Skin: COMMON NORMALS: no rashes or lesions noted, no jaundice, no petechiae and no mottling GENERAL SKIN EXAM: no rashes or lesions noted OTHER: Bilateral chronic venous stasis dermatitis with currently more erythema below the knee on the right side, and below mid cole on the left side, with multiple venous stasis ulcerations on shins, ankles, feet bilaterally. Serous appearing drainage without foul smell, no mottling, no cyanosis, no purulent discharge. Urinary Catheter Management^: Gorman: Cath Placed During This Visit: yes, but has since been removed by the nurse Reason for Continuing Indwelling Catheter: Not indwelling catheter Urinary Catheter Date of Insertion: 12/20/19 Urinary Catheter Time of Insertion: 02:43 Date Urinary Catheter Removed: 12/23/19 Time Urinary Catheter Discontinued: 11:32 Data : 12/25/19 04:55 12/27/19 08:41 A&P Assessment and plan (1) Hyponatremia: Status: Acute (2) Hypothyroidism: Status: Acute (3) Venous stasis dermatitis of both lower extremities: Status: Acute (4) Stasis ulcer of left lower extremity: Status: Acute (5) Rhabdomyolysis: Improving. Continue gentle IV hydration. Recheck in the morning. Status: Acute Qualifiers: Rhabdomyolysis type: non-traumatic Qualified Code(s): M62.82 - Rhabdomyolysis (6) Neuropathy: -Hold gabapentin for now given acute renal injury Status: Chronic (7) Acute kidney injury: Status: Acute (8) Hyperkalemia: This is resolved with treatment. Currently normal. Status: Acute (9) Physical deconditioning: Status: Acute Additional A&P Information Hypothyroidism: TSH improving, T4 continues to improve. Patient received 2 doses of IV levothyroxine 100 mcg daily. From now patient will be getting levothyroxine 150 mcg oral daily. Patient to repeat thyroid panel in 1 month. Chronic venous stasis: With chronic venous dermatitis, with chronic venous stasis multiple ulcers bilateral lower extremities. Daughter reports that she was offered bilateral AKA amputation, and was considering to do that but did back out to the last minute. At this time will continue compression dressings. Continue follow-up with Dr. Jacobo. While inpatient will continue to dress with compression stockings and Maxorb. Patient is getting venous duplex insufficiency study for chronic venous stasis. Studies done yesterday. Results awaited. Cellulitis: Patient has finished 5-day course of appropriate antibiotics.. On examination patient does not seem to have any active cellulitis and more so has residual dermatitis because of chronic venous stasis. Last dose of antibiotics today. At home patient gets compression bandage through home health. We will continue the same. We will continue using Hydrofera Blue and Maxorb accordingly. Hyponatremia: Resolved. Sodium has remained stable now. Most likely combination of prerenal and severe hypothyroidism. Nephrology consultation appreciated. Discontinue IV fluids. Continue with salt tabs 1 g twice daily. Continue monitoring BMP daily. FANI: Stable. Creatinine back to baseline. Most likely because of dehydration. Nephrology recommendations appreciated. Medical reconciliation done for nephrotoxic drugs. SETH Gorman. CT abdomen/renal ultrasound results appreciated. Troponin abnormality: No chest pain. EKG changes likely repolarization. Troponin 65-65-58. She is having no chest pain. She does report history of MD may be a year ago. Suspect this is likely demand ischemia. Appreciate cardiology assessment. Echocardiogram?shows an EF of 75% with grade 1 diastolic dysfunction with no regional wall motion abnormality, mild AI, moderately calcified aortic valve. Acute encephalopathy: Now resolved. She is encephalopathic secondary to metabolic changes. Hyponatremia. Acute kidney injury. Hypothyroidism. -Chronic pain, on chronic narcotics; hold narcotics except for methadone to avoid withdrawal. Multilevel DJD noted on CT -lipase elevation (182); noted mild pancreas enlargement on CT. still no abdominal pain. She is eating. Perhaps minimal pancreatitis. GB us -status post cholecystectomy, CBD could not be visualized. On CT no reports of abnormal CBD. Recheck. 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 Possible dislocation versus neuropathic joint of the left hip: She is nonambulatory at baseline. Thus get herself in and out of the wheelchair and to the commode at home with assistive devices. Right arm numbness: Reports since last week has had numbness of the right arm. She was on a somnolent, confused earlier, so this appears to be the first time she is reporting it. Says that it has not improved significantly. Says that she has been having pain in the right side of her neck as well with cracking and popping sounds when she is moving her neck. Says the power is the same in the right upper and lower extremity. There is no facial droop. There is no sensory neglect. Otherwise power is the same as usual for her bilaterally. Sensation are unchanged on lower extremities. Visual conner are full to confrontation. FNF is normal. I discussed with her possible etiologies. Cannot exclude that this may not have been a stroke, however, with lack of other focal abnormalities, and with localized pain in the right neck, with other associated symptoms this appears to be more secondary to possible radiculopathy secondary to DJD. Discussed tomorrow potentially could assess with MRI brain to exclude CVA. Her above medical conditions discussed with her daughter in detail who is agreeable with assessment and plan. -renal diet as tolerated -DVT ppx with heparin. Discharge planning: Patient feeling significantly weak. Physical therapy recommendations appreciated. Patient will require SNF placement because of severe deconditioning. Patient has been accepted at [facility]. Awaiting preauthorization. Attestations Medical Necessity Statement*: Awaiting preauthorization, venous stasis, hyponatremia Time Spent in Patient Care: 16 - 35 minutes Coding Level of Care Code Acute Management Accounts Manager for [facility] Roxana Diagnoses Hyponatremia E87.1 Hypothyroidism E03.9 Venous stasis dermatitis of both lower extremities I87.2 Stasis ulcer of left lower extremity I83.029; L97.929 Rhabdomyolysis M62.82 Rhabdomyolysis type: non-traumatic Neuropathy G62.9 Acute kidney injury N17.9 Hyperkalemia E87.5 Physical deconditioning R53.81
--- NOTE | 2019-12-27 10:01 | DCPLANNER ---
Pg 2 of IM updated and reviewed with pt. No questions, copy provided.
[2019-12-27 10:25] LABS: Alanine Aminotransferase 57 U/L (0-33); Albumin Level 2.5 g/dL (3.5-5.2); Alkaline Phosphatase 329 IU/L (35-105); Anion Gap 11.1 (5-19); Aspartate Amino Transferase 60 U/L (0-32); Blood Urea Nitrogen 11 mg/dL (8-23); Calcium 8.9 mg/dL (8.5-10.5); Carbon Dioxide 25 mmol/L (22-29); Chloride 103 mmol/L (98-107); Glomerular Filtration Rate 71.1 mL/min (90-130); Glucose 115 mg/dL (65-115); Osmolality Calculated 280 mOsm/kg (285-295); Potassium 4.1 mmol/L (3.5-5.1); Sodium 135 mmol/L (136-145); T3 Free 1.9 PG/ML (2.0-4.4); Thyroid Stimulating Hormone 8.11 uIU/mL (0.27-4.20); Total Bilirubin 0.4 mg/dL (0.15-1.2); Total Protein 5.5 g/dL (6.6-8.7)
[2019-12-27] MEDS: heparin 5,000 unit/mL INJ 1 mL 5000 UNIT SUBCUT ×2 (10:34→22:08)
[2019-12-27] MEDS: allopurinol 300 mg Tablet PO (10:34)
[2019-12-27] MEDS: gabapentin 400 mg Capsule 800 MG PO ×3 (10:35→22:08)
[2019-12-27] MEDS: famotidine 20 mg Tablet PO ×2 (10:35→17:47)
[2019-12-27] MEDS: cetirizine 10 mg Tablet PO (10:35)
[2019-12-27] MEDS: aspirin 81 mg Chew Tablet PO (10:35)
[2019-12-27] MEDS: sodium chloride 1 gm Tablet PO ×2 (10:36→17:47)
[2019-12-27] MEDS: midodrine 5 mg TABLET PO ×3 (10:36→22:08)
[2019-12-27] MEDS: levothyroxine 150 mcg Tablet PO (10:36)
[2019-12-27] MEDS: oxyCODONE 10 mg ER (12 HR) Tablet PO (17:47)
[2019-12-27] MEDS: atorvastatin 40 mg Tablet PO (22:08)
[2019-12-28 03:48] VITALS: BP 105/52; PULSE 82; RESP 18; TEMP 37.2; O2SAT 90
[2019-12-28] MEDS: methadone 10 mg Tablet PO ×2 (05:23→14:03)
[2019-12-28 05:59] LABS: Alanine Aminotransferase 47 U/L (0-33); Albumin Level 2.5 g/dL (3.5-5.2); Alkaline Phosphatase 312 IU/L (35-105); Anion Gap 12.1 (5-19); Aspartate Amino Transferase 46 U/L (0-32); Blood Urea Nitrogen 11 mg/dL (8-23); Calcium 8.4 mg/dL (8.5-10.5); Carbon Dioxide 24 mmol/L (22-29); Chloride 102 mmol/L (98-107); Globulin 2.7 g/dL (1.3-4.6); Glucose 82 mg/dL (65-115); Osmolality Calculated 276 mOsm/kg (285-295); Potassium 4.1 mmol/L (3.5-5.1); Sodium 134 mmol/L (136-145); Total Bilirubin 0.3 mg/dL (0.15-1.2); Total Protein 5.2 g/dL (6.6-8.7)
[2019-12-28 08:00] VITALS: BP 99/59; PULSE 84; RESP 18; TEMP 36.9; O2SAT 91
[2019-12-28] MEDS: cetirizine 10 mg Tablet PO (09:12)
[2019-12-28] MEDS: heparin 5,000 unit/mL INJ 1 mL 5000 UNIT SUBCUT (09:12)
[2019-12-28] MEDS: allopurinol 300 mg Tablet PO (09:12)
[2019-12-28] MEDS: aspirin 81 mg Chew Tablet PO (09:12)
[2019-12-28] MEDS: famotidine 20 mg Tablet PO (09:12)
[2019-12-28] MEDS: midodrine 5 mg TABLET PO (09:13)
[2019-12-28] MEDS: levothyroxine 150 mcg Tablet PO (09:13)
[2019-12-28] MEDS: gabapentin 400 mg Capsule 800 MG PO (09:13)
[2019-12-28] MEDS: oxyCODONE 10 mg ER (12 HR) Tablet PO (11:25)
[2019-12-28 11:37] VITALS: BP 96/47; PULSE 103; RESP 18; TEMP 36.8; O2SAT 93
--- NOTE | 2019-12-28 11:50 | PM.DCS ---
Discharge Providers Date of Admission: 12/20/19 04:06 Date of Discharge: December 28, 2019 Attending Provider at Admission: Kristen Cleaning MD Attending Provider at Discharge: Parish Serrano MD Consults: Tele Nephrology Cardiology: Dr. Hall Primary Care Provider: Lloyd Prabhakar Diagnoses at Discharge Discharge Diagnosis (1) Hyponatremia: Status: Acute (2) Hypothyroidism: Status: Acute (3) Venous stasis dermatitis of both lower extremities: Status: Acute (4) Stasis ulcer of left lower extremity: Status: Acute (5) Rhabdomyolysis: Status: Acute Qualifiers: Rhabdomyolysis type: non-traumatic Qualified Code(s): M62.82 - Rhabdomyolysis (6) Neuropathy: Status: Chronic (7) Acute kidney injury: Status: Acute (8) Hyperkalemia: Status: Acute (9) Physical deconditioning: Status: Acute Reason for Visit Reason for Visit: weakness Hospital Course Discharge Summary: Jessica Herrera is a 69 year old female with PMHx noted below presents for evaluation of generalized weakness and noted abnormal labs at PCP office which she states included low sodium and high potassium though is unsure of exact numbers. She is wheelchair dependent at baseline, has chronic lower extremity wounds for which she has home health care for daily wound dressing changes and she follows up at the wound care clinic. She has known CKD stage III and has not required dialysis in the past though she does see a fish bailer. She is quite somnolent during my evaluation in the ER so history taking is quite limited. Additional information obtained from review of medical record. Work-up so far indicates leukocytosis with a white count of 17.2, normal hemoglobin at 12.0, platelet count of 535, sodium of 116 which when corrected for hyperglycemia is 117, sodium of 85, bicarb of 16, BUN of 107, creatinine of 2.5, blood glucose of 175, magnesium of 2.6, noted transaminitis, lactate of 1.7, normal coags, rapid COVID testing negative, ABG indicative of mild hypoxia, CPK of 854, lipase of 182, baseline troponin of 65. Urinalysis is pending. Gorman catheter has just been placed with 300 mL urine output noted. She has received 1 L normal saline bolus and is currently receiving maintenance fluids. Vital signs are stable. CT scan of the abdomen and pelvis has just been completed and shows multilevel DJD, but no obstruction. I have requested nephrology consultation for further recommendations. Due to somnolence, degree of electrolyte abnormalities and renal dysfunction, patient will be admitted to ICU. Patient will come to the ICU for further management of hyponatremia. Nephrology was consulted. It is believed that her hyponatremia is most likely prerenal. She was put on fluid restriction and started on IV normal saline. Start her sodium also difficult to maintain but eventually she was started on salt tablets and her sodium levels have been improving now steadily. Her sodium levels have been at her baseline for last 3 days. She is also found to be extremely hypothyroid on her levothyroxine home dose. She received 3 doses of IV levothyroxine as her home dose of levothyroxine have been adjusted. She was also found to have venous stasis ulcers in both her legs which were treated with ceftriaxone for cellulitis. She was treated with continuous daily compression dressings. Patient was severely deconditioned because of prolonged hospital stay and hyponatremia along with hypothyroidism. Patient was due to be discharged to SNF and has been waiting for preauthorization. While waiting with continued physical therapy patient started feeling a lot better and at present is is at her baseline of being able to transfer herself from bed to wheelchair. Because of the same it is believed that patient does not need SNF anymore and can be discharged to home with home health. Patient is been discharged hemodynamically stable condition with advised to follow-up with her primary care provider within next 2 weeks with advised to repeat a CMP in 2 weeks and thyroid panel in next 1 month. Physical Exam Const: COMMON NORMALS: no acute distress, patient oriented x3 and alert GENERAL APPEARANCE: cooperative, comfortable and frail appearing NUTRITIONAL APPEARANCE: overweight ORIENTATION/CONSCIOUSNESS: Yes awake HENMT: COMMON NORMALS: normocephalic, atraumatic, hearing grossly normal bilaterally and oropharynx normal HEAD & SCALP: normocephalic and atraumatic Eye: COMMON NORMALS: Equal, round and reactive pupils present, EOMs intact bilaterally and conjunctivae normal CONJUNCTIVA: Yes conjunctivae normal PUPIL: Yes Equal, round and reactive pupils present Neck/C-Spine: COMMON NORMALS: full ROM and no JVD GENERAL: Yes normal visual inspection and Yes trachea midline Resp: COMMON NORMALS: normal respiratory effort, No retractions, No use of accessory muscles and clear to auscultation bilaterally EFFORT & INSPECTION: Yes able to speak in complete sentences, Yes symmetric chest movement and No tachypneic AUSCULTATION: clear to auscultation bilaterally OTHER: -on RA Cardio: COMMON NORMALS: no JVD, regular rate, regular rhythm, S1 normal heart sound present, S2 normal heart sound present and No murmurs present (Cardio) RATE: regular rate RHYTHM: regular rhythm HEART SOUNDS: S1 normal heart sound present and S2 normal heart sound present GI: COMMON NORMALS: Normal to inspection, nondistended, normoactive bowel sounds present, Soft to palpation and non-tender INSPECTION: Yes central obesity PALPATION: Yes Soft to palpation Extremity: COMMON NORMALS: normal to inspection, full ROM, no joint enlargement, no clubbing, cyanosis or edema and no pedal edema NARRATIVE EXTREMITY EXAM: -bilateral foot drop -lymphedema wraps on bilateral LEs OTHER: Lower extremities are wrapped in compression dressings. Left lower extremity shorter and everted Healed scars on right shoulder after prior surgery. 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 She does report some numbness of the right arm which has been new since last week. Neuro: COMMON NORMALS: patient oriented x3, moves all extremities, no focal motor deficits and no sensory deficits noted SENSORIUM/ORIENTATION: Yes alert and Yes somnolent GAIT: Yes Other gait observations present (WC-bound) OTHER: -Noted upper extremity tremor Psych: COMMON NORMALS: mental status grossly normal, Normal thought process present, cooperative, normal affect and speech normal SPEECH: Yes normal speech THOUGHT PROCESS: Normal thought process present Skin: COMMON NORMALS: no rashes or lesions noted, no jaundice, no petechiae and no mottling GENERAL SKIN EXAM: no rashes or lesions noted OTHER: Bilateral chronic venous stasis dermatitis with currently more erythema below the knee on the right side, and below mid cole on the left side, with multiple venous stasis ulcerations on shins, ankles, feet bilaterally. Serous appearing drainage without foul smell, no mottling, no cyanosis, no purulent discharge. Urinary Catheter Management^: Gorman: Cath Placed During This Visit: yes, but has since been removed by the nurse Reason for Continuing Indwelling Catheter: Not indwelling catheter Urinary Catheter Date of Insertion: 12/20/19 Urinary Catheter Time of Insertion: 02:43 Date Urinary Catheter Removed: 12/23/19 Time Urinary Catheter Discontinued: 11:32 Discharge Data Data Completed and Pending: Completed Studies During Hospitalization Category Date Time Status CT cervical spin wo con* [id number] Rout ine Cat Scan 12/21/19 08:[address] head wo con* 7 0450 Stat Cat Scan 12/19/19 21:[address] kidney stone 7 8104 Urgent Cat Scan 12/20/19 01:55 Completed XR chest 1V porsha ble [id number] Stat Exams 12/19/19 21:09 Completed CV echo complete* [id number] Routine Ultrasound 12/20/19 05:45 Completed US abdomen limite d [id number] Routine Ultrasound 12/20/19 08:23 Completed Pending at discharge Category Date Time Status CV venous dup ins ufficie LE BI Rout ine Ultrasound 12/26/19 Taken Labs from last 24 hours 12/28/19 05:05 Sodium 134 L Potassium 4.1 Chloride 102 Carbon Dioxide 24 Anion Gap 12.1 BUN 11 Creatinine 0.7 GFR Calculation 83.0 L Glucose 82 Calculated Osmolal ity 276 L Calcium 8.4 L Total Bilirubin 0.3 AST 46 H ALT 47 H Alkaline Phosphata se 312 H Total Protein 5.2 L Albumin 2.5 L Globulin 2.7 Vitals: Last Vital Signs Temp 98.3 F 12/28/19 11:37 Pulse 103 H 12/28/19 11:37 Resp 18 12/28/19 11:37 BP 96/47 12/28/19 11:37 Pulse Ox 93 12/28/19 11:37 Discharge Plan Discharge Patient Disposition: Home Health Service Condition: Stable Prescriptions: New sodium chloride 1 gram Tablet 1 g PO BID Qty: 10 RF: 0 levothyroxine 175 mcg capsule 175 mcg PO DAILY Qty: 30 RF: 0 aspirin 81 mg Tablet,Chewable 81 mg PO DAILY Qty: 30 RF: 0 atorvastatin 40 mg Tablet 40 mg PO BEDTIME Qty: 30 RF: 0 Continued diclofenac sodium [Voltaren] 1 % gel 4 gm TOPICAL QID RF: 0 midodrine 2.5 mg tablet 5 mg PO TID RF: 0 omeprazole 20 mg capsule,delayed release(DR/EC) 20 mg PO BID RF: 0 ergocalciferol (vitamin D2) 2,000 unit tablet 2,000 unit PO QDAY RF: 0 allopurinol 300 mg tablet 300 mg PO QDAY RF: 0 zinc sulfate 220 (50) mg capsule 220 mg PO QDAY RF: 0 calcium carbonate [Calcium 600] 600 mg calcium (1,500 mg) tablet 600 mg PO BID RF: 0 cetirizine 10 mg tablet 10 mg PO QDAY PRN (Reason: allergies) RF: 0 gabapentin 800 mg tablet 800 mg PO TID 30 Days Qty: 90 RF: 1 methadone 10 mg tablet 10 mg PO Q8H 30 Days Qty: 90 RF: 0 oxycodone 10 mg tablet 10 mg PO BID PRN (Reason: pain) 30 Days Qty: 60 RF: 0 ondansetron HCl [Zofran] 4 mg tablet 4 mg PO Q6H PRN (Reason: nausea and vomiting) Qty: 50 RF: 1 Discontinued levothyroxine 125 mcg tablet 125 mcg PO QDAY RF: 0 Discharge Orders: Discharge Order (Routine); Ordered 12/28/19 Ordered By: Parish Serrano Referrals: [facility]) [Outside] Felix Prabhakar MD [Primary Care Provider] - 2 weeks Discharge Diet: Regular Discharge Activity: Resume usual activity Activity Restrictions/Additional Instructions: Please follow-up with your primary care provider within next 2 weeks. Please repeat a CMP in the next 2 weeks. Thyroid panel including TSH, free T3 and free T4 should be checked within next 1 month. Discharge Attestations Time Spent in Discharge Care*: greater than 30 min Specific Discharge Activities: Specific discharge activities: educating patient, discussing with case operator/social workers/dc planners, documenting/other paperwork and evaluating patient/reviewing data Status at Discharge: Cognitive status at discharge: cognitively intact, Behavioral status at discharge: cooperative, Functional status at discharge: wheelchair bound Overall status at discharge: patient is back to baseline Quality Metrics Clinical Quality Measures During this hospital stay, did patient experience: None Coding Level of Care Code Acute Ore Bridge Operator for [facility] [employer] Diagnoses Hyponatremia E87.1 Hypothyroidism E03.9 Venous stasis dermatitis of both lower extremities I87.2 Stasis ulcer of left lower extremity I83.029; L97.929 Rhabdomyolysis M62.82 Rhabdomyolysis type: non-traumatic Neuropathy G62.9 Acute kidney injury N17.9 Hyperkalemia E87.5 Physical deconditioning R53.81
[2019-12-28 12:00] VITALS: BP 96/47; PULSE 103; RESP 18; TEMP 36.8
[2019-12-28 14:06] VITALS: BP 96/47; PULSE 103; RESP 18; TEMP 36.8
--- NOTE | 2019-12-28 17:45 | PM.PN ---
Subjective Subjective: Interval history: Patient is feeling well. Denies any complaints. Vitals/I&O/Wt Last Vital Signs Temp 98.3 F 12/28/19 14:06 Pulse 103 H 12/28/19 14:06 Resp 18 12/28/19 14:06 BP 96/47 12/28/19 14:06 Pulse Ox 93 12/28/19 11:37 12/28/19 12/28/19 12/28/19 06:59 14:59 22:59 Intake Total 240 / 240 Output Total 150 / 400 Balance -150 / 80 240 / 240 Weight last 48 hrs Weight 188 lb 1.6 oz Physical Exam Narrative: EXAM NARRATIVE: NARRATIVE: GENERAL: Patient is alert, awake and oriented x3. NECK: No jugular vein distension. HEENT: No cyanosis. No icterus. No pallor. HEART: Regular S1 and S2. No murmur, rub or gallop. LUNGS: Clear to auscultate bilaterally. ABDOMEN: Soft, nontender and nondistended. Positive bowel sounds. No guarding, rebound or tenderness. CENTRAL NERVOUS SYSTEM: Right arm weakness. EXTREMITIES: Lower extremities with 1+ edema bilaterally. Bilateral venous ulcer with necrotic base and cellulits. Urinary Catheter Management^: Gorman: Cath Placed During This Visit: yes, but has since been removed by the nurse Reason for Continuing Indwelling Catheter: Not indwelling catheter Urinary Catheter Date of Insertion: 12/20/19 Urinary Catheter Time of Insertion: 02:43 Date Urinary Catheter Removed: 12/23/19 Time Urinary Catheter Discontinued: 11:32 Data : 12/25/19 04:55 12/28/19 05:05 A&P Assessment and plan (1) High level of cardiac marker: Type II non-ST elevation MS most likely due to high CK and sepsis. Continue conservative management Status: Acute (2) Acute kidney injury: Improved. Status: Acute (3) Acute hyponatremia: Improved. Status: Acute (4) Weakness: As per medicine Status: Acute (5) Stasis ulcer of left lower extremity: Venous study done. Once reported, can be scheduled for outpatient ablation if feasible. Status: Acute Attestations Medical Necessity Statement*: Care expected to cross 2 midnights Coding Level of Care Code Acute Mobile Equipment Operator for [facility] Roxana Diagnoses High level of cardiac marker R74.8 Acute kidney injury N17.9 Acute hyponatremia E87.1 Weakness R53.1 Stasis ulcer of left lower extremity I83.029; L97.922
== END 2019-12-28 14:00 | disposition home health service (06) | DRG 682 ==
LOC: ER 12-20 04:11 → ICU 12-20 04:19 → MEDSURG 12-21 19:15
PROVIDERS: Internal Medicine; Internal Medicine Nephrology; Admitting Provider Family Medicine; Emergency Provider Emergency Medicine; PCP Family Medicine; Visit Provider Student in an Organized Health Care Education/Training Program
DX: N17.9 Acute kidney failure, unspecified (principal); G93.41 Metabolic encephalopathy; E87.1 Hypo-osmolality and hyponatremia; M62.82 Rhabdomyolysis; L03.116 Cellulitis of left lower limb; L03.115 Cellulitis of right lower limb; S42.301K Unspecified fracture of shaft of humerus, right arm, subsequent encounter for fracture with nonunion; E87.5 Hyperkalemia; N18.3 Chronic kidney disease, stage 3 (moderate); Z79.891 Long term (current) use of opiate analgesic; M54.5 Low back pain; M17.0 Bilateral primary osteoarthritis of knee; G62.9 Polyneuropathy, unspecified; E03.9 Hypothyroidism, unspecified; G89.29 Other chronic pain; I25.2 Old myocardial infarction; I87.2 Venous insufficiency (chronic) (peripheral); X58.XXXD Exposure to other specified factors, subsequent encounter
CPT/HCPCS: 12345; 36415; 36416; 36600; 51702; 70450; 71045; 72125; 73030; 74176; 76705; 80048; 80051; 80053; 80202; 80307; 81001; 82009; 82140; 82533; 82550; 82570; 82810; 82962; 83605; 83690; 83735; 83930; 83935; 83986; 84100; 84295; 84300; 84439; 84443; 84481; 84484; 84550; 85025; 85610; 87040; 87086; 87426; 87641; 93005; 93306; 93970; 94640; 96372; 96375; 97124; 97140; 97161; 97165; 97530; 97535; 99284; J0610; J0696; J0743; J0744; J1644; J1815; J1940; J3370; J3490; J7030; J7050; J7611; J7799; Q3014

== ENCOUNTER 2020-01-08 16:01 | Outpatient (CLI) | payer MEDICARE, MEDICAID, SELFPAY ==
[2020-01-08 16:44] LABS: Alanine Aminotransferase 39 U/L (0-33); Albumin Level 3.2 g/dL (3.5-5.2); Alkaline Phosphatase 374 IU/L (35-105); Anion Gap 19.5 (5-19); Aspartate Amino Transferase 51 U/L (0-32); Blood Urea Nitrogen 52 mg/dL (8-23); Calcium 9.1 mg/dL (8.5-10.5); Carbon Dioxide 21 mmol/L (22-29); Chloride 93 mmol/L (98-107); Globulin 3.6 g/dL (1.3-4.6); Glomerular Filtration Rate 34.4 mL/min (90-130); Glucose 193 mg/dL (65-115); Osmolality Calculated 287 mOsm/kg (285-295); Potassium 4.5 mmol/L (3.5-5.1); Sodium 129 mmol/L (136-145); Total Bilirubin 0.5 mg/dL (0.15-1.2); Total Protein 6.8 g/dL (6.6-8.7)
== END 2020-01-08 16:02 | disposition home or self-care (01) ==
LOC: LAB 16:05
PROVIDERS: PCP Family Medicine; Visit Provider Family Medicine
DX: I12.9 Hypertensive chronic kidney disease with stage 1 through stage 4 chronic kidney disease, or unspecified chronic kidney disease (principal)
CPT/HCPCS: 80053